=== PATIENT | female | born 1965 | race Caucasian/White ===

== ENCOUNTER 2018-11-26 20:48 | Inpatient (IN) | payer MEDICARE, MEDICAID, SELFPAY ==
[2018-11-26 20:50] VITALS: BP 118/73; PULSE 88; RESP 16; TEMP 37.2; O2SAT 98; BMI 34.9
--- NOTE | 2018-11-26 20:57 | ED.RN ---
NO OLD EKGS IN MUSE
--- NOTE | 2018-11-26 21:32 | EKG12_ITS ---
Test Reason : Blood Pressure : / mmHG Vent. Rate : 150 BPM Atrial Rate : 156 BPM P-R Int : 000 ms QRS Dur : 076 ms QT Int : 284 ms P-R-T Axes : 000 018 001 degrees QTc Int : 448 ms Atrial fibrillation with rapid ventricular response Nonspecific T wave abnormality Abnormal ECG Confirmed by DANNY MOSHER ([id number]), rewrite editor REKHA WALDEN ([id number]) on 11/29/2018 11:02:19 AM Referred By: Confirmed By:DANNY MOSHER
--- NOTE | 2018-11-26 21:36 | ED.DCSUM_ITS ---
- ER Visit Summary Date of Service: 11/26/18 Chief Complaint: Palpitations History of Present Illness: The patient is a 53 F presenting with palpitations. Patient states this started yesterday. Initially was intermittent but has been more persistent today. She complains of a chest fluttering as well as shortness of breath and nausea. She states when she stands she feels lightheaded like she is going to pass out. She has not had these symptoms in the past. She denies chest pain. Denies other complaints. Physical Examination: Vitals are stable. Patient is afebrile. Heart rate 150. alert no acute distress. HEENT exam is unremarkable. Neck is supple. Lungs are clear and equal bilaterally. Heart is irregularly irregular Abdomen is soft nontender nondistended. Extremities are unremarkable. Skin is warm and dry. No focal neurologic deficit. Remainder of exam is unremarkable. Emergency Department Course and Treatment: EKG is A. fib with RVR rate of 150. Patient was given aspirin, Cardizem IV. Chest x-ray shows elevated right hemidiaphragm with minimal right basilar atelectasis. CBC, chemistries unremarkable. Troponin is negative. TSH 4.83. Repeat heart rate ranges from 115-130. She was started on Cardizem drip. Discussed with Dr. Anderson for admission. Disposition: Admission Impression: A. fib with RVR This note was generated with [employer] dictation software. It may contain incorrect words, spelling, and punctuation that were not noted in review of the chart prior to signing ED Disposition - Plan for ED Patient: Referrals: Fátima Rodriguez MD [Primary Care Provider] -
--- NOTE | 2018-11-26 21:37 | RAD_ITS ---
STUDY: X-RAY CHEST REASON FOR EXAM: Female, 53 years old. Palpitations. TECHNIQUE: Single AP portable view of the chest. COMPARISON: None. FINDINGS: Telemetry wires overlie the chest. There is slight elevation of the right hemidiaphragm with right basilar atelectasis. The lungs are otherwise clear. There is no demonstrated pleural abnormality. Normal size heart. Normal mediastinum and gabby. Normal visualized pulmonary arteries. Normal visualized aortic arch and descending thoracic aorta. There are diffuse degenerative changes of the visualized thoracic spine. Normal visualized ribs, clavicles, and shoulders. There is no demonstrated abnormality of the visualized soft tissue structures of the upper abdomen. RAD/Chest 1 View (Portable) IMPRESSION: Elevated right hemidiaphragm with minimal right basilar atelectasis. Electronically Signed: Luis Keller DO at 22:04 EDT Tel [phone], Service support ,
[2018-11-26] MEDS: dilTIAZem 25 MG/5 ML Vial 20 MG IV BOLUS (21:40)
[2018-11-26] MEDS: Aspirin 325 MG Tablet PO (21:40)
[2018-11-26 21:44] VITALS: PULSE 87
[2018-11-26 22:06] VITALS: BP 109/84; PULSE 104; O2SAT 98
[2018-11-26 22:25] LABS: Anion Gap 2 (5-15); BUN 13 mg/dL (7-18); BUN/Creat Ratio 13.6 RATIO (10-20); Calcium,Total 8.6 mg/dL (8.5-10.1); Chloride 109 mmol/L (98-107); Creatinine, Serum 0.96 mg/dL (0.55-1.02); EST Glomerular Filtration Rate 65 mL/min (>60); Est Glom Filt Rate - Afr Amer 79 mL/min (>60); Estimated Creatinine Clearance 67.42 ml/min; Glucose 90 mg/dL (74-106); Sodium Level 140 mmol/L (136-145); Thyroid Stim Hormone (TSH) 4.83 uIU/mL (0.358-3.74)
[2018-11-26 22:31] LABS: Absolute Lymphocyte Count 2.81 X10^3/ul (0.83-4.51); Absolute Neutrophil Count 5.2 X10^3/uL (2.0-7.7); Basophil# 0.02 X10^3/uL; Basophil% 0.2 % (0-1); Eosinophil# 0.13 X10^3/uL; Eosinophils% 1.4 % (0-5); Hemoglobin 14.1 g/dl (12.0-15.0); Lymphocyte # 2.81 X10^3/ul (4.0); Lymphocyte % 31.3 % (19-41); Mean Corp Hgb Conc 33.6 g/gl (32-36); Mean Corpuscular Volume 89.4 fL (81-99); Mean Platelet Vol. 11.2 fl (6.2-12.0); Monocyte# 0.84 X10^3/uL; Monocyte% 9.4 % (0-10); Neutrophil # 5.15 X10^3/uL (2.7-7.7); Neutrophil % 57.5 % (47-70); Platelet Count 359 K/mm3 (150-450); RBC Distribution Width CV 13.8 % (11.6-14.6); RBC Distribution Width SD 44.3 fl (35.1-43.9)
[2018-11-26 22:32] LABS: POSITIVE COUNT NO; POSITIVE DIFFERENTIAL NO; POSITIVE MORPHOLOGY NO
[2018-11-26 23:09] VITALS: BP 105/83; PULSE 138; RESP 16; TEMP 36.4; O2SAT 100
--- NOTE | 2018-11-26 23:17 | HP.PCM_ITS ---
Problem List (1) Atrial fibrillation with RVR Status: Acute (2) HTN (hypertension) Status: Chronic (3) AVM (arteriovenous malformation) Status: Chronic (4) Anxiety and depression Status: Chronic (5) Chronic back pain Status: Chronic Qualifiers: Back pain location: back pain in unspecified location Back pain laterality: unspecified Qualified Code(s): M54.9 - Dorsalgia, unspecified; G89.29 - Other chronic pain (6) Fibromyalgia Status: Chronic (7) Obesity (BMI 30.0-34.9) Status: Chronic (8) Osteoarthritis Status: Chronic Qualifiers: Osteoarthritis location: unspecified site Osteoarthritis type: unspecified Qualified Code(s): M19.90 - Unspecified osteoarthritis, unspecified site History of Present Illness Date of Admission: 11/26/18 Chief Complaint: Palpitations The patient is a 53 y/o F w/ PMHx: R sided AVM, Obesity, HTN, GERD, Chronic Back Pain, Fibromyalgia, Anxiety and Depression who presents to the [facility] ED on 11/26/18 with history of ongoing 2-3 days of intermittent palpitations, heart racing sensation, described as fluttering with associated lightheadedness, dizziness with near syncopal sensation occasionally, worse with position changes, especially standing up. She denies any associated chest discomfort, pressure or pain with these concurrent symptoms. She does state that she has had flushed and occasionally cold sensations over the last month. Work-up in the ED included T 98.9, heart rate up to 138 in the ED, BP 118/73, respiratory rate 16, 98% on room air, CBC with WBC 9, hemoglobin 14.1, platelet 359 without shift, BMP not marked appearing, troponin less than 0.01, EKG with atrial fibrillation with RVR, TSH 4.83, chest x-ray with elevated right hemidiaphragm with minimal right basilar atelectasis. In the ED patient ministered aspirin 325 mg p.o. x1 in addition to Cardizem 20 mg IV x1 bolus. Patient transition to Cardizem drip in the ED. Past Medical History Past Medical History (Chronic Problems): Chronic Problems HTN (hypertension) (Chronic) AVM (arteriovenous malformation) (Chronic) Anxiety and depression (Chronic) Chronic back pain (Chronic) Fibromyalgia (Chronic) Obesity (BMI 30.0-34.9) (Chronic) Osteoarthritis (Chronic) Allergies meperidine [From Demerol] Allergy (Verified 11/26/18 20:55) Vomiting Penicillins [PCN] Allergy (Verified 11/26/18 20:55) Unknown adhesive tape Adverse Reaction (Verified 11/26/18 22:45) Hives ciprofloxacin [From Cipro] Adverse Reaction (Verified 11/26/18 22:45) Hives floxacillin Adverse Reaction (Verified 11/26/18 22:45) Vomiting Sulfa (Sulfonamide Antibiotics) Adverse Reaction (Verified 11/26/18 22:45) Rash Home Medications: Ambulatory Orders Medication Instructions Recorded Atenolol [Tenormin (Beta Sulema)] 50 mg PO DAILY 11/26/18 Cholecalciferol (Vitamin D3) 2,000 unit PO DAILY 11/26/18 [Vitamin D3] Cyanocobalamin (Vitamin B-12) 2,000 mcg PO DAILY 11/26/18 [Vitamin B-12] Diclofenac Sodium [Voltaren] 100 gm TP BID 11/26/18 Docusate Sodium [Dulcolax Stool 100 mg PO BID 11/26/18 Softener] Duloxetine Hcl [Cymbalta] 120 mg PO DAILY 11/26/18 Magnesium Oxide 400 mg PO DAILY 11/26/18 Omeprazole [Prilosec] 20 mg PO DAILY 11/26/18 Polyethylene Glycol 3350 [Miralax] 119 gm PO TID 11/26/18 Pregabalin [Lyrica] 150 mg PO 4X/DAY 11/26/18 Trospium Chloride [Sanctura] 20 mg PO BID 11/26/18 traZODone [Desyrel] 100 mg PO QHS PRN 11/26/18 Surgical History: - - History of significant right-sided AVMs with resection on the right back, right upper extremity, right axilla, right lower extremity, right chest, bilateral tubal ligation, uterine ablation, tonsillectomy, ex lap from what patient describes lysis of adhesion needs. Psychiatric History: Anxiety, Depression DIET TECH History: No pertinent DIET TECH history Lives: Spouse/ Significant Other Smoking Status: Never smoker Tobacco Use: Non-smoker Alcohol: None Drugs: None - *Family History Maternal History Items: - - Patient notes a maternal family history of heart disease, [place], secondary to cardiac [place] complications at age 60. Paternal History Items: - - Father with a history also of AVMs. Review of Systems Constitutional: Reports: Malaise, Weakness, Fatigue. Denies: Chills, Fever, Weight Change HEENT: Denies: Head Aches, Sinus Congestion, Sinus Drainage Cardiovascular: Reports: Light Headedness, Palpitations, Syncope - Near syncopal sensation.. Denies: Chest Pain Respiratory: Denies: Cough, Shortness of breath at rest, Sputum production Gastrointestinal: Denies: Abdominal Pain, Nausea, Vomiting Genitourinary: Denies: Dysuria Musculoskeletal: Reports: Back Pain, Hand Pain, Joint Pain, Joint stiffness, Leg Pain. Denies: Joint Tenderness Skin: Denies: Rash, Wounds Neurological: Denies: Numbness, Tingling, Focal weakness Psychiatric: Reports: Anxiety, Depression. Denies: Homicidal Ideations, Suicidal Ideations Hematologic/ Lymphatic: Denies: Easy Bruising, Easy Bleeding VTE Information - Inpt Only VTE Present on Admission: No VTE Mechan Device Prophylaxis: SCD's VTE Pharm Prophylaxis ordered?: Yes Patient Problems: Active and Suspected Problems Atrial fibrillation with RVR (Acute) Subjective: Seated upright in ED bed, fatigued appearance, notes feeling mildly improved since initial presentation but rate still increased again further following Cardizem bolus with drip pending. Objective: Physical Examination: General: awake, alert, oriented x 3 and cooperative, seated upright in the ED bed in no apparent distress, fatigued, mild improved in symptoms. Skin: normal color, turgor, no icterus, cyanosis. HEENT: AT/NC, EOMI, PERRLA, mildly dry MM, no carotid bruits or JVD noted. Lungs: CTA bilaterally, moderate effort, moderate decrease BL bases, no rales, ronchi or wheezing. Heart: Irregular irregular; no gallop, rub audible. Abdomen: soft, obese, NTTP, ND, normal BS, no HSM. Extremities: no cyanosis, clubbing, or edema, brace to R knee and R wrist. Neurological: patient awake, alert, oriented x 3; cognitive function intact; pupils equally reactive to light and accomodation; cranial nerves II-XII grossly normal, moving all 4 extremities, no focal deficits, strength moderately to severely globally decreased secondary to acute presentation. Psychiatric: affect appears fatigued, no acute evidence of depressive or anxiety feelings. - Physical Exam Vital Signs Temp Pulse Resp BP Pulse Ox 98.9 F 104 H 16 109/84 H 98 11/26/18 20:50 11/26/18 22:06 11/26/18 20:50 11/26/18 22:06 11/26/18 22:06 Oxygen Delivery Method Room Air Weight: 223 lb Body Mass Index (BMI) 34.9 Laboratory Tests Past 24 Hrs 11/26/18 11/26/18 21:07 21:07 WBC 9.0 RBC 4.70 Hgb 14.1 Hct 42.0 MCV 89.4 MCH 30.0 MCHC 33.6 RDW 13.8 RDW Differential 44.3 H Plt Count 359 MPV 11.2 Immature Gran % (Auto) 0.200 Neut % (Auto) 57.5 Lymph % (Auto) 31.3 [place] % (Auto) 9.4 Eos % (Auto) 1.4 Baso % (Auto) 0.2 Absolute Neuts (auto) 5.2 Absolute Lymphs (auto) 2.81 Total Counted Not Reportable Sodium 140 Potassium 4.0 Chloride 109 H Carbon Dioxide 29.0 Anion Gap 2 L BUN 13 Creatinine 0.96 Estim Creat Clear Calc 67.42 Est GFR (MDRD) Af Amer 79 Est GFR (MDRD) Non-Af 65 BUN/Creatinine Ratio 13.6 Glucose 90 Calcium 8.6 Troponin I < 0.015 TSH 4.83 H Assessment/Plan All Active Problems Atrial fibrillation with RVR (Acute) The patient is a 53 y/o F w/ PMHx: R sided AVM, Obesity, HTN, GERD, Chronic Back Pain, Fibromyalgia, Anxiety and Depression who presents to the [facility] ED on 11/26/18 with history of ongoing 2-3 days of intermittent palpitations, heart racing sensation, described as fluttering with associated lightheadedness, dizziness with near syncopal sensation occasionally, worse with position changes, especially standing up. (1) New onset, Paroxsymal atrial fibrillation: EKG in ED w/ atrial fibrillation w/ RVR. Patient administered cardizem IV bolus in ED. Will admit to PCU, maintain on telemetry, obtain cardiac enzyme serial set, obtain magnesium level, obtain ECHO, obtain free T4 level given mild elevation TSH in the ED. we will administer therapeutic Lovenox pending cardiology evaluation. Will continue on cardizem drip with plan for oral transition after 24 hours if appropriate. Cardiology consulted, pending. UDS requested. (2) Elevated TSH: No noted history, TSH elevated 4.83, FT4 pending. (3) Hypertension: We will hold oral regimen, normally atenolol with likely alterations as usage of Cardizem drip with transition once appropriate. (4) Chronic back pain, Fibromyalgia, OA: Will maintain on home cymbalta and Lyrica regimen. (5) Obesity: Weight loss and lifestyle changes encouraged. (6) Anxiety and depression: Continue home Cymbalta regimen. (7) GERD: Continue home Prilosec. (8) AVM, R Sided: Notable R sided AVM history, several surgical interventions. (9) DVT prophylaxis: SCDs, therapeutic Lovenox. Code Visit Inpatient E&M: 08586 Init Hosp L3
[2018-11-26 23:59] VITALS: BP 117/91; PULSE 155; RESP 16; TEMP 36.9; O2SAT 98
[2018-11-27] VITALS (27 sets, daily range): BP systolic 86–113; BP diastolic 49–79; PULSE 84–129; RESP 12–21; TEMP 36.5–37.3; O2SAT 94–99; BMI 34.9
[2018-11-27 00:12] LABS: Amphetamine Urine VISTA NEGATIVE (<1000 ng/mL); Barbiturate Urine VISTA NEGATIVE (< 200 ng/mL); Benzodiazepine Urine VISTA NEGATIVE (< 200 ng/mL); Cocaine Urine VISTA NEGATIVE (< 300 ng/mL); Ecstacy Urine VISTA NEGATIVE (< 500 ng/mL); Methadone Urine VISTA NEGATIVE (< 300 ng/mL); PCP Urine VISTA NEGATIVE (< 25 ng/mL); THC Urine VISTA NEGATIVE (< 50 ng/mL); Vista UDS pH Range 7
--- NOTE | 2018-11-27 00:39 | ECHOD_ITS ---
Reason For Study: Afib/Flutter Procedure This was a 2D Doppler, Color Flow transthoracic echocardiogram. Technically difficult study due to arrhythmia. Exam performed in department. Left Ventricle Mild concentric left ventricular hypertrophy. The estimated ejection fraction is 65 %. Unable to assess diastolic dysfunction due to arrhythmia. No regional wall motion abnormalities noted. Right Ventricle Normal size and thickness. Normal systolic function. Atria Normal left atrium. Normal right atrium. Normal atrial septum. Mitral Valve The mitral valve is structurally normal. No prolapse or stenosis seen. Trivial mitral valve insufficiency. Tricuspid Valve Normal tricuspid valve. Trivial tricuspid valve insufficiency. Right ventricular systolic pressure estimated to be 29 mmHg. Aortic Valve Normal aortic valve. Trisinus/trileaflet aortic valve. Pulmonic Valve Normal pulmonic valve. Great Vessels Normal aortic root. Normal arch. Normal inferior vena cava. Inferior vena cava collapse with sniff. Pericardium/Pleural No pericardial effusion. MMode/2D Measurements & Calculations LVIDd: 3.8 cm IVSd: 1.5 cm LA dimension: 3.9 cm LVIDs: 2.4 cm LVPWd: 0.86 cm RVDd: 3.1 cm FS: 35.8 % LAV(MOD-bp): 34.1 ml LA A4 area: 12.4 cm2 RA A4 area: 9.7 cm2 LAV(MOD-bp) Indexed: 16.1 ml/m2 LAV(MOD-sp2): 38.5 ml LAV(MOD-sp4): 27.9 ml Doppler Measurements & Calculations MV E max linda: 88.5 cm/sec Ao V2 max: 93.3 cm/sec LV V1 max: 83.6 cm/sec Ao max P.5 mmHg LV V1 max P.8 mmHg Ao V2 mean: 62.5 cm/sec LV V1 mean P.2 mmHg Ao mean P.8 mmHg LV V1 mean: 49.6 cm/sec Ao V2 VTI: 15.8 cm LV V1 VTI: 15.3 cm PA V2 max: 53.3 cm/sec TR max linda: 186.2 cm/sec TR max P.9 mmHg Interpretation Summary Mild concentric left ventricular hypertrophy. The estimated ejection fraction is 65 %. Unable to assess diastolic dysfunction due to arrhythmia. Trivial mitral valve insufficiency. Trivial tricuspid valve insufficiency. Right ventricular systolic pressure estimated to be 29 mmHg. Pt appears to be in atrial fibrillation. There is no comparison study available. Ordering Physician: Shanna Anderson Performed By: Luis Manuel Lockett RCS
[2018-11-27 01:37] LABS: Magnesium 1.9 mg/dL (1.6-2.6)
[2018-11-27] MEDS: Enoxaparin 100 MG/ML Syringe SC ×3 (01:55→21:09)
[2018-11-27] MEDS: Acetaminophen 325 MG Tablet 650 MG PO (02:12)
[2018-11-27 03:50] LABS: Absolute Neutrophil Count 4.3 X10^3/uL (2.0-7.7); Basophil# 0.02 X10^3/uL; Basophil% 0.3 % (0-1); Eosinophil# 0.11 X10^3/uL; Eosinophils% 1.4 % (0-5); Hematocrit 37.8 % (37-47); Hemoglobin 12.6 g/dl (12.0-15.0); Lymphocyte % 34.1 % (19-41); Mean Corp Hgb Conc 33.3 g/gl (32-36); Mean Corpuscular Hgb 29.8 pg (27.0-32.0); Mean Corpuscular Volume 89.4 fL (81-99); Mean Platelet Vol. 10.7 fl (6.2-12.0); Monocyte# 0.73 X10^3/uL; Monocyte% 9.2 % (0-10); Neutrophil # 4.34 X10^3/uL (2.7-7.7); Neutrophil % 54.9 % (47-70); Platelet Count 300 K/mm3 (150-450); RBC Distribution Width CV 13.6 % (11.6-14.6); RBC Distribution Width SD 44.3 fl (35.1-43.9); Red Blood Count 4.23 M/mm3 (4.2-5.4); White Blood Count 7.9 K/mm3 (4.4-11.0)
[2018-11-27 03:52] LABS: Anion Gap 8 (5-15); BUN 14 mg/dL (7-18); BUN/Creat Ratio 17.4 RATIO (10-20); Calcium,Total 8.4 mg/dL (8.5-10.1); Chloride 110 mmol/L (98-107); Cholesterol 147 mg/dL (200); Creatinine, Serum 0.81 mg/dL (0.55-1.02); EST Glomerular Filtration Rate 80 mL/min (>60); Est Glom Filt Rate - Afr Amer 96 mL/min (>60); Glucose 106 mg/dL (74-106); High Density Lipoprotein 41 mg/dL; POSITIVE COUNT NO; POSITIVE DIFFERENTIAL NO; POSITIVE MORPHOLOGY NO; Potassium 3.7 mmol/L (3.5-5.1); Sodium Level 143 mmol/L (136-145); Triglycerides 150 mg/dL; Very Low Density Lipoprotein 30 mg/dL (5-40)
[2018-11-27] MEDS: Meloxicam 15 MG Tablet PO ×2 (06:47→21:08)
--- NOTE | 2018-11-27 07:07 | STE_ITS ---
Reason For Study: ATRIAL FIB/FLUTTER Stress Results Protocol: Chencho Protocol Maximum Predicted HR: 169 bpm Target HR: 144 bpm % Maximum Predicted HR: 88 % DurationHeart Rate Stage (mm:ss) (bpm) BP Comment BASELINE 95 100/62 STAGE 1 3:00 130 112/70 STAGE 2 3:00 148 120/72SOB AND LEG HEAVINESS RECOVERY 111 98/60 Stress Duration: 6:00 mm:ss Maximum Stress HR: 148 bpm Baseline Echocardiogram Findings The estimated ejection fraction is 65 %. Stress Echo Wall motion Data Resting WM Intermediate WM Stress WM Resting Wall Motion Wall Motion Stress No regional wall motion No regional wall motion abnormalities noted. abnormalities noted. EKG Data Atrial fibrillation with controlled ventricular response. The patient exercised according to the regular Chencho protocol for a total duration of 6:00. The maximum heart rate attained was 164 beats per minute. This was 97% of maximum predicted heart rate. The patient exercised into stage 3 of the Chencho protocol. During stress, there were no ST or T wave changes noted to suggest ischemia. No clinical angina was noted. Interpretation Summary The estimated ejection fraction is 65 %. Normal, adequate, treadmill echocardiogram. Negative for ischemia by EKG and echocardiographic criteria. No anginal symptoms noted. No arrhythmias noted other than baseline atrial fibrillation. Test terminated due to dyspnea. Final LVEF is 75%. No complications. Ordering Physician: Mil Newton Referring Physician: Mil Newton MD Performed By: Joann Russell, JUNIOR, RVT
[2018-11-27] MEDS: Atenolol 50 MG Tablet 100 MG PO (07:41)
[2018-11-27] MEDS: Aspirin 81 MG TAB.CHEW PO (07:41)
--- NOTE | 2018-11-27 08:00 | EKG12_ITS ---
Test Reason : RHYTHM Blood Pressure : / mmHG Vent. Rate : 083 BPM Atrial Rate : 083 BPM P-R Int : 188 ms QRS Dur : 078 ms QT Int : 366 ms P-R-T Axes : 057 011 012 degrees QTc Int : 430 ms Normal sinus rhythm Nonspecific T wave abnormality Abnormal ECG When compared with ECG of 26-NOV-2018 21:09, MANUAL COMPARISON REQUIRED, DATA IS UNCONFIRMED Confirmed by SASHA LAST ([id number]), deputy editor in chief REKHA WALDEN ([id number]) on 12/02/2018 2:25:05 PM Referred By: SARAH Confirmed By:ANIRUDH LAST
[2018-11-27 08:27] LABS: Prothrombin Time (Protime)PT. 13.4 SECONDS (11.7-14.9)
[2018-11-27 08:28] LABS: Partial Thromboplast Time 42.3 Seconds (24.1-36.2)
--- NOTE | 2018-11-27 09:54 | PCM.PN.HOSP ---
Patient Problems: Active and Suspected Problems Atrial fibrillation with RVR (Acute) Subjective: Patient seen and examined. She was admitted with complaint of palpitations and lightheadedness and was found to be in new onset A. fib with RVR. She is currently on Cardizem drip and cardiology consulted. She is due to have a stress test and echo today. Patient seen and examined. She denies any lightheadedness but still has occasional palpitations. She denies any dizziness, chest pain, diarrhea vomiting. Review of systems otherwise negative. Labs and vitals reviewed. Vitals/I&O's: Vital Signs Temp Pulse Resp BP Pulse Ox 98.6 F 115 H 21 H 90/74 97 11/27/18 08:00 11/27/18 08:00 11/27/18 08:00 11/27/18 08:00 11/27/18 08:00 Oxygen Delivery Method Room Air Weight: 223 lb 1.725 oz Body Mass Index (BMI) 34.9 Intake and Output for Last 24 Hours 11/25/18 11/26/18 11/27/18 23:59 23:59 23:59 Intake Total 603 / 603 Output Total 200 / 200 Balance 403 / 403 General: Alert, Oriented x3, Cooperative, No apparent distress HEENT: Atraumatic, PERRLA, EOMI, Normocephalic Oral: Moist Mucosa Neck: Supple, No JVD, Negative Carotid Bruits Lungs: Clear to auscultation, Normal air movement, No rhonchi, No wheeze Cardiovascular: Normal S1, Normal S2, Tachycardic, - - irregular rate and rhythm Abdomen: Bowel Sounds Present, Soft, Non Tender Extremities: No clubbing, No cyanosis, No edema, Capillary Refill Less than 3 Seconds Skin: No rashes, No breakdown Musculoskeletal: No Tenderness to Palpation of Joints or Extremities Lymphatic: No Cervical, Supraclavicular, or Inguinal Adenopathy Neurological: Cranial nerves II-XII grossly intact, Neuro grossly intact, Motor Exam 5/5 strength throughout Psych/Mental Status: Normal Affect, Appropriate, Alert and oriented to time, place, person, mood and affect Laboratory Results 11/26/18 21:07: WBC 9.0, RBC 4.70, Hgb 14.1, Hct 42.0, MCV 89.4, MCH 30.0, MCHC 33.6, RDW 13.8, RDW Differential 44.3 H, Plt Count 359, MPV 11.2, Immature Gran % (Auto) 0.200, Neut % (Auto) 57.5, Lymph % (Auto) 31.3, [place] % (Auto) 9.4, Eos % (Auto) 1.4, Baso % (Auto) 0.2, Absolute Neuts (auto) 5.2, Absolute Lymphs (auto) 2.81, Total Counted Not Reportable 11/26/18 21:07: Sodium 140, Potassium 4.0, Chloride 109 H, Carbon Dioxide 29.0, Anion Gap 2 L, BUN 13, Creatinine 0.96, Estim Creat Clear Calc 67.42, Est GFR (MDRD) Af Amer 79, Est GFR (MDRD) Non-Af 65, BUN/Creatinine Ratio 13.6, Glucose 90, Calcium 8.6, Troponin I < 0.015, TSH 4.83 H 11/26/18 23:50: Urine Opiates Screen NEGATIVE, Urine Methadone Screen NEGATIVE, Ur Barbiturates Screen NEGATIVE, Ur Phencyclidine Scrn NEGATIVE, Ur Amphetamines Screen NEGATIVE, U Methamphetamin-MDMA NEGATIVE, U Benzodiazepines Scrn NEGATIVE, Urine Cocaine Screen NEGATIVE, U Cannabinoids Screen NEGATIVE, Ur Drug Screen Comment 11/27/18 01:08: Magnesium 1.9, Troponin I < 0.015, Free T4 0.90 11/27/18 03:18: WBC 7.9, RBC 4.23, Hgb 12.6, Hct 37.8, MCV 89.4, MCH 29.8, MCHC 33.3, RDW 13.6, RDW Differential 44.3 H, Plt Count 300, MPV 10.7, Immature Gran % (Auto) 0.100, Neut % (Auto) 54.9, Lymph % (Auto) 34.1, [place] % (Auto) 9.2, Eos % (Auto) 1.4, Baso % (Auto) 0.3, Absolute Neuts (auto) 4.3, Absolute Lymphs (auto) 2.70, Total Counted Not Reportable 11/27/18 03:18: Sodium 143, Potassium 3.7, Chloride 110 H, Carbon Dioxide 25.0, Anion Gap 8, BUN 14, Creatinine 0.81, Estim Creat Clear Calc 79.90, Est GFR (MDRD) Af Amer 96, Est GFR (MDRD) Non-Af 80, BUN/Creatinine Ratio 17.4, Glucose 106, Calcium 8.4 L, Triglycerides 150, Cholesterol 147, LDL Cholesterol 76, VLDL Cholesterol 30, HDL Cholesterol 41 11/27/18 03:18: Troponin I < 0.015 11/27/18 08:04: PT 13.4, INR 1.0, APTT 42.3 H Diagnostic Data Chest X-Ray 11/26/18 21:37 IMPRESSION: Elevated right hemidiaphragm with minimal right basilar atelectasis. Electronically Signed: Luis Keller DO at 22:04 EDT Tel [phone], Service support , Current Medications Acetaminophen (Tylenol) 650 mg PO Q6H PRN PRN PRN Reason: Non-cardiac pain (mod-severe) Last Admin: 11/27/18 02:12 Dose: 650 mg Hydrocodone Bitart/Acetaminophen ([place] 5mg-325mg) 1 - 2 tablet PO Q6H PRN PRN PRN Reason: MOD-SEVERE PAIN (4-10/10) Al Hydroxide/Mg Hydroxide (Mylanta Ii) 15 - 30 ml PO Q4H PRN PRN PRN Reason: INDIGESTION Albuterol Sulfate (Ventolin Aerosols) 2.5 mg INHALATION Q2H PRN PRN PRN Reason: dyspnea, wheezing Aspirin (Aspirin, Baby) 81 mg PO DAILY@0800 [facility] Last Admin: 11/27/18 07:41 Dose: 81 mg Dextrose (D50w Syringe) 0 gm IV X1 PRN; Protocol PRN Reason: Hypoglycemia Docusate Sodium (Colace) 100 mg PO BID [facility] Duloxetine HCl (Cymbalta) 120 mg PO DAILY [facility] Enoxaparin Sodium (Lovenox) 100 mg 1 mg/kg (100 mg) SC Q12 [facility] Last Admin: 11/27/18 01:55 Dose: 100 mg Glucagon () 1 mg IM .X1 PRN PRN Reason: Hypoglycemia Hydralazine HCl (Apresoline Iv) 10 mg IV Q4H PRN PRN PRN Reason: SBP > 160 Sodium Chloride () 1,000 mls @ 100 mls/hr IV .Q10H [facility] Last Admin: 11/27/18 07:13 Dose: Not Given Magnesium Oxide (Mag-Ox 400) 400 mg PO DAILY [facility] Melatonin (Melatonin) 3 mg PO QHS PRN PRN PRN Reason: INSOMNIA Morphine Sulfate () 1 - 2 mg IV Q4H PRN PRN PRN Reason: PAIN Nitroglycerin (Nitrostat) 0.4 mg SUBLINGUAL Q5M PRN PRN Reason: CARDIAC/CHEST PAIN Ondansetron HCl (Zofran) 4 mg IV Q8H PRN PRN PRN Reason: NAUSEA/VOMITING Pantoprazole Sodium (Protonix) 20 mg PO DAILY [facility] Polyethylene Glycol (Miralax) 8.5 gm PO TIDCM [facility] Last Admin: 11/27/18 07:42 Dose: Not Given Pregabalin (Lyrica) 150 mg PO 4X/DAY [facility] Sodium Chloride () 5 - 15 ml IV UD PRN PRN Reason: SALINE FLUSH Tolterodine Tartrate (Detrol La) 4 mg PO DAILY [facility] Trazodone HCl (Desyrel) 100 mg PO QHS PRN PRN Reason: INSOMNIA Medical Necessity - Tobacco Use Smoking Status: Never smoker Tobacco Use: Non-smoker Assessment/Plan All Active Problems Atrial fibrillation with RVR (Acute) 1. New Onset Afib with RVR on cardizem drip; remains in Afib TSH was mildly elevated but free T4 was WNL, indicating sublinical hypothyroidism cardiology on board for 2D echo and stress test today on therapeutic dose of lovenox; 2. Hypertension: stable. atenolol held as she is currently on cardizem drip 3. Fibromyalgia with chronic back pain: on cymbalta and lyrica 4. Anxiety and depression: on Cymbalta 5. GERD: on Prilosec 6. Right sided AVM: s/p numerous surgical interventions 7. Subclinical hypothyroidism: TSH was 4.83, but free T4 was WNL. WIll monitor. To follow up with PCP on outpatient basis. DVT prophlaxis: on therapeutic dose of lovenox Code Visit Inpatient E&M: 57914 [facility] Hosp L3
--- NOTE | 2018-11-27 09:58 | PN_ITS ---
Patient Problems: Active and Suspected Problems Atrial fibrillation with RVR (Acute) Subjective: Patient seen and examined. She was admitted with complaint of palpitations and lightheadedness and was found to be in new onset A. fib with RVR. She is currently on Cardizem drip and cardiology consulted. She is due to have a stress test and echo today. Patient seen and examined. She denies any lightheadedness but still has occasional palpitations. She denies any dizziness, chest pain, diarrhea vomiting. Review of systems otherwise negative. Labs and vitals reviewed. Vitals/I&O's: Vital Signs Temp Pulse Resp BP Pulse Ox 98.6 F 115 H 21 H 90/74 97 11/27/18 08:00 11/27/18 08:00 11/27/18 08:00 11/27/18 08:00 11/27/18 08:00 Oxygen Delivery Method Room Air Weight: 223 lb 1.725 oz Body Mass Index (BMI) 34.9 Intake and Output for Last 24 Hours 11/25/18 11/26/18 11/27/18 23:59 23:59 23:59 Intake Total 603 / 603 Output Total 200 / 200 Balance 403 / 403 General: Alert, Oriented x3, Cooperative, No apparent distress HEENT: Atraumatic, PERRLA, EOMI, Normocephalic Oral: Moist Mucosa Neck: Supple, No JVD, Negative Carotid Bruits Lungs: Clear to auscultation, Normal air movement, No rhonchi, No wheeze Cardiovascular: Normal S1, Normal S2, Tachycardic, - - irregular rate and rhythm Abdomen: Bowel Sounds Present, Soft, Non Tender Extremities: No clubbing, No cyanosis, No edema, Capillary Refill Less than 3 Seconds Skin: No rashes, No breakdown Musculoskeletal: No Tenderness to Palpation of Joints or Extremities Lymphatic: No Cervical, Supraclavicular, or Inguinal Adenopathy Neurological: Cranial nerves II-XII grossly intact, Neuro grossly intact, Motor Exam 5/5 strength throughout Psych/Mental Status: Normal Affect, Appropriate, Alert and oriented to time, place, person, mood and affect Laboratory Results 11/26/18 21:07: WBC 9.0, RBC 4.70, Hgb 14.1, Hct 42.0, MCV 89.4, MCH 30.0, MCHC 33.6, RDW 13.8, RDW Differential 44.3 H, Plt Count 359, MPV 11.2, Immature Gran % (Auto) 0.200, Neut % (Auto) 57.5, Lymph % (Auto) 31.3, [place] % (Auto) 9.4, Eos % (Auto) 1.4, Baso % (Auto) 0.2, Absolute Neuts (auto) 5.2, Absolute Lymphs (auto) 2.81, Total Counted Not Reportable 11/26/18 21:07: Sodium 140, Potassium 4.0, Chloride 109 H, Carbon Dioxide 29.0, Anion Gap 2 L, BUN 13, Creatinine 0.96, Estim Creat Clear Calc 67.42, Est GFR (MDRD) Af Amer 79, Est GFR (MDRD) Non-Af 65, BUN/Creatinine Ratio 13.6, Glucose 90, Calcium 8.6, Troponin I < 0.015, TSH 4.83 H 11/26/18 23:50: Urine Opiates Screen NEGATIVE, Urine Methadone Screen NEGATIVE, Ur Barbiturates Screen NEGATIVE, Ur Phencyclidine Scrn NEGATIVE, Ur Amphetamines Screen NEGATIVE, U Methamphetamin-MDMA NEGATIVE, U Benzodiazepines Scrn NEGATIVE, Urine Cocaine Screen NEGATIVE, U Cannabinoids Screen NEGATIVE, Ur Drug Screen Comment 11/27/18 01:08: Magnesium 1.9, Troponin I < 0.015, Free T4 0.90 11/27/18 03:18: WBC 7.9, RBC 4.23, Hgb 12.6, Hct 37.8, MCV 89.4, MCH 29.8, MCHC 33.3, RDW 13.6, RDW Differential 44.3 H, Plt Count 300, MPV 10.7, Immature Gran % (Auto) 0.100, Neut % (Auto) 54.9, Lymph % (Auto) 34.1, [place] % (Auto) 9.2, Eos % (Auto) 1.4, Baso % (Auto) 0.3, Absolute Neuts (auto) 4.3, Absolute Lymphs (auto) 2.70, Total Counted Not Reportable 11/27/18 03:18: Sodium 143, Potassium 3.7, Chloride 110 H, Carbon Dioxide 25.0, Anion Gap 8, BUN 14, Creatinine 0.81, Estim Creat Clear Calc 79.90, Est GFR (MDRD) Af Amer 96, Est GFR (MDRD) Non-Af 80, BUN/Creatinine Ratio 17.4, Glucose 106, Calcium 8.4 L, Triglycerides 150, Cholesterol 147, LDL Cholesterol 76, VLDL Cholesterol 30, HDL Cholesterol 41 11/27/18 03:18: Troponin I < 0.015 11/27/18 08:04: PT 13.4, INR 1.0, APTT 42.3 H Diagnostic Data Chest X-Ray 11/26/18 21:37 IMPRESSION: Elevated right hemidiaphragm with minimal right basilar atelectasis. Electronically Signed: Luis Keller DO at 22:04 EDT Tel [phone], Service support , Current Medications Acetaminophen (Tylenol) 650 mg PO Q6H PRN PRN PRN Reason: Non-cardiac pain (mod-severe) Last Admin: 11/27/18 02:12 Dose: 650 mg Hydrocodone Bitart/Acetaminophen ([place] 5mg-325mg) 1 - 2 tablet PO Q6H PRN PRN PRN Reason: MOD-SEVERE PAIN (4-10/10) Al Hydroxide/Mg Hydroxide (Mylanta Ii) 15 - 30 ml PO Q4H PRN PRN PRN Reason: INDIGESTION Albuterol Sulfate (Ventolin Aerosols) 2.5 mg INHALATION Q2H PRN PRN PRN Reason: dyspnea, wheezing Aspirin (Aspirin, Baby) 81 mg PO DAILY@0800 [facility] Last Admin: 11/27/18 07:41 Dose: 81 mg Dextrose (D50w Syringe) 0 gm IV X1 PRN; Protocol PRN Reason: Hypoglycemia Docusate Sodium (Colace) 100 mg PO BID [facility] Duloxetine HCl (Cymbalta) 120 mg PO DAILY [facility] Enoxaparin Sodium (Lovenox) 100 mg 1 mg/kg (100 mg) SC Q12 [facility] Last Admin: 11/27/18 01:55 Dose: 100 mg Glucagon () 1 mg IM .X1 PRN PRN Reason: Hypoglycemia Hydralazine HCl (Apresoline Iv) 10 mg IV Q4H PRN PRN PRN Reason: SBP > 160 Sodium Chloride () 1,000 mls @ 100 mls/hr IV .Q10H [facility] Last Admin: 11/27/18 07:13 Dose: Not Given Magnesium Oxide (Mag-Ox 400) 400 mg PO DAILY [facility] Melatonin (Melatonin) 3 mg PO QHS PRN PRN PRN Reason: INSOMNIA Morphine Sulfate () 1 - 2 mg IV Q4H PRN PRN PRN Reason: PAIN Nitroglycerin (Nitrostat) 0.4 mg SUBLINGUAL Q5M PRN PRN Reason: CARDIAC/CHEST PAIN Ondansetron HCl (Zofran) 4 mg IV Q8H PRN PRN PRN Reason: NAUSEA/VOMITING Pantoprazole Sodium (Protonix) 20 mg PO DAILY [facility] Polyethylene Glycol (Miralax) 8.5 gm PO TIDCM [facility] Last Admin: 11/27/18 07:42 Dose: Not Given Pregabalin (Lyrica) 150 mg PO 4X/DAY [facility] Sodium Chloride () 5 - 15 ml IV UD PRN PRN Reason: SALINE FLUSH Tolterodine Tartrate (Detrol La) 4 mg PO DAILY [facility] Trazodone HCl (Desyrel) 100 mg PO QHS PRN PRN Reason: INSOMNIA Medical Necessity - Tobacco Use Smoking Status: Never smoker Tobacco Use: Non-smoker Assessment/Plan All Active Problems Atrial fibrillation with RVR (Acute) 1. New Onset Afib with RVR * on cardizem drip; remains in Afib * TSH was mildly elevated but free T4 was WNL, indicating sublinical hypoth yroidism * cardiology on board * for 2D echo and stress test today * on therapeutic dose of lovenox; 2. Hypertension: stable. atenolol held as she is currently on cardizem drip 3. Fibromyalgia with chronic back pain: on cymbalta and lyrica 4. Anxiety and depression: on Cymbalta 5. GERD: on Prilosec 6. Right sided AVM: s/p numerous surgical interventions 7. Subclinical hypothyroidism: TSH was 4.83, but free T4 was WNL. WIll monitor. To follow up with PCP on outpatient basis. DVT prophlaxis: on therapeutic dose of lovenox Code Visit Inpatient E&M: 03269 Subs Hosp L3
[2018-11-27] MEDS: Magnesium Oxide 400 MG Tablet PO (10:10)
[2018-11-27] MEDS: DULoxetine Hcl 60 MG Capsule 120 MG PO (10:11)
[2018-11-27] MEDS: Polyethylene Glycol 3350 17 GM PACKET 8.5 GM PO ×2 (10:11→17:22)
[2018-11-27] MEDS: Pregabalin 75 MG Capsule 150 MG PO ×4 (10:11→21:19)
[2018-11-27] MEDS: Tolterodine Tartrate 4 MG CAP.SA PO (10:11)
[2018-11-27] MEDS: Docusate Sodium 100 MG Capsule PO ×2 (10:11→21:08)
[2018-11-27] MEDS: Pantoprazole Sodium 20 MG Tablet PO (10:11)
--- NOTE | 2018-11-27 10:49 | CASEMGMT ---
NITO PENA assessment: Face to Face with patient for initial transition planning/care coordination assessment. NITO PENA introduced self and role at [facility], pt voices understanding and consents to assessment at this time. Pt is lying in bed in no distress at this time. Pt is A/Ox4 at this time and answers all questions appropriately at this time. Care providers, pharmacy, and demographics verified at this time. PCP: Jennifer Specialists: Multiple specialists thru [facility]. Preferred Pharmacy: [facility] Insurance: [facility] Prescription Benefit: Yes Living Will/HPOA: Pt states that she believes that she does have LW/HPOA and that they are on file with [facility]. LNOK: Jhon Shaw, sig other Living Arrangements: Pt states lives with sig other in 2 story home and states has had some trouble recently regarding SOB on the stairs but believes that it was d/t the Afib. Pt states is normally independent with ADL's. Transportation: Pt states that she can drive but normally sig other drives and states no transportation concerns at this time. DME/HHC: Pt states has a brace for her right knee and right elbow d/t tendonitis, etc. Pt states is currently in OP therapy at [facility] for same. Pt states that she may need a cane in the future. Pt states no hx of HHC or SNF in the past. Pt states no concerns with going home at time of discharge. Pt states is disabled. Pt states does not smoke or drink ETOH. Pt states no further concerns/needs at this time. CM to follow for any further discharge planning/needs. Advised pt to ask for CM if any further questions/concerns/needs arise, voices understanding. Pt Goal: Home Plan: [place] NITO PENA
--- NOTE | 2018-11-27 13:21 | PCM.CONS.C ---
<Nic Lemus - Last Filed: 11/27/18 14:34> Problem List (1) Atrial fibrillation with RVR Status: Acute (2) HTN (hypertension) Status: Chronic Reason for Consult Date of Consultation: 11/27/18 Reason for Consultation: Atrial fibrillation with RVR History of Present Illness: The patient is a 53 year old F who presented to the ER on 11/27/2018 with episodes of palpitations. She has a previous medical history of HTN, AVM with multiple surgeries and ablations, anxiety, and chronic back pain. Her ECG showed Atrial fibrillation with RVR with rates of 150 bpm. She states having palpitations previously but yesterday was more constant. She has noticed intermittent palpitations for 2 to 3 months. This is also associated with shortness of breath and leg heaviness when going up steps. She received Cardizem bolus and Amiodarone bolus and was admitted for further work up. Cardiology was consulted for further evaluation and treatment. Past Medical History Allergies/Adverse Reactions: Allergies meperidine [From Demerol] Allergy (Verified 11/26/18 20:55) Vomiting Penicillins [PCN] Allergy (Verified 11/26/18 20:55) Unknown adhesive tape Adverse Reaction (Verified 11/26/18 22:45) Hives ciprofloxacin [From Cipro] Adverse Reaction (Verified 11/26/18 22:45) Hives floxacillin Adverse Reaction (Verified 11/26/18 22:45) Vomiting Sulfa (Sulfonamide Antibiotics) Adverse Reaction (Verified 11/26/18 22:45) Rash Home Medications: Ambulatory Orders Medication Instructions Recorded Atenolol [Tenormin (Beta Sulema)] 50 mg PO DAILY 11/26/18 Cholecalciferol (Vitamin D3) 2,000 unit PO DAILY 11/26/18 [Vitamin D3] Cyanocobalamin (Vitamin B-12) 2,000 mcg PO DAILY 11/26/18 [Vitamin B-12] Diclofenac Sodium [Voltaren] 100 gm TP BID 11/26/18 Docusate Sodium [Dulcolax Stool 100 mg PO BID 11/26/18 Softener] Duloxetine Hcl [Cymbalta] 120 mg PO DAILY 11/26/18 Magnesium Oxide 400 mg PO DAILY 11/26/18 Omeprazole [Prilosec] 40 mg PO DAILY 11/26/18 Polyethylene Glycol 3350 [Miralax] 119 gm PO TID 11/26/18 Pregabalin [Lyrica] 150 mg PO 4X/DAY 11/26/18 Trospium Chloride [Sanctura] 20 mg PO BID 11/26/18 traZODone [Desyrel] 100 mg PO QHS PRN 11/26/18 Meloxicam 15 mg PO DAILY 11/27/18 Past Medical History (Chronic Problems): Chronic Problems HTN (hypertension) (Chronic) AVM (arteriovenous malformation) (Chronic) Anxiety and depression (Chronic) Chronic back pain (Chronic) Fibromyalgia (Chronic) Obesity (BMI 30.0-34.9) (Chronic) Osteoarthritis (Chronic) Surgical History: - - History of significant right-sided AVMs with resection on the right back, right upper extremity, right axilla, right lower extremity, right chest, bilateral tubal ligation, uterine ablation, tonsillectomy, ex lap from what patient describes lysis of adhesion needs. Psychiatric History: Anxiety, Depression FIELD SPEC History: No pertinent FIELD SPEC history - *Family History Maternal Family History: Family History (Last Updated 11/27/18 @ 13:28 by AREN Pina) Mother CAD (coronary artery disease) Grandmother CAD (coronary artery disease) Sister Aneurysm Breast cancer History Items: - - Patient notes a maternal family history of heart disease, VT, secondary to cardiac VT complications at age 60. Paternal Family History: Family History (Last Updated 11/27/18 @ 13:28 by AREN Pina) Mother CAD (coronary artery disease) Grandmother CAD (coronary artery disease) Sister Aneurysm Breast cancer History Items: - - Father with a history also of AVMs. Lives: Spouse/ Significant Other Smoking Status: Never smoker Tobacco Use: Non-smoker Alcohol: None Drugs: None Review of Systems - Review of Systems General: Reports: Fatigue Cardiovascular: Reports: Shortness of Breath with Exertion, Peripheral Edema, Palpitations. Denies: Chest Discomfort, Chest Tightness, Chest Heaviness Respiratory: Denies: Cough Neurological: Reports: Dizziness Objective: Vital Signs Temp Pulse Resp BP Pulse Ox 97.8 F 108 H 16 95/57 L 98 11/27/18 10:10 11/27/18 10:10 11/27/18 10:10 11/27/18 10:10 11/27/18 10:10 Oxygen Delivery Method Room Air Weight: 223 lb 1.725 oz Body Mass Index (BMI) 34.9 Intake and Output for Last 24 Hours 11/25/18 11/26/18 11/27/18 23:59 23:59 23:59 Intake Total 1267 / 1267 Output Total 200 / 200 Balance 1067 / 1067 General: Healthy Appearing, Awake, Alert, Oriented x 3 HEENT: Atraumatic Oral: Moist Mucosa Neck: No JVD Lungs: Clear to auscultation Cardiovascular: Irregular Rhythm, Normal S1, Normal S2, No Murmurs, No Rubs, No Gallops Abdomen: Soft Extremities: No Cyanosis, No Clubbing, No edema, Normal Capillary Refill Neurological: No Focal Motor or Sensory Deficit Psych/Mental Status: Appropriate, Normal Affect 11/26/18 21:07: WBC 9.0, RBC 4.70, Hgb 14.1, Hct 42.0, MCV 89.4, MCH 30.0, MCHC 33.6, RDW 13.8, RDW Differential 44.3 H, Plt Count 359, MPV 11.2, Immature Gran % (Auto) 0.200, Neut % (Auto) 57.5, Lymph % (Auto) 31.3, [place] % (Auto) 9.4, Eos % (Auto) 1.4, Baso % (Auto) 0.2, Absolute Neuts (auto) 5.2, Total Counted Not Reportable 11/26/18 21:07: Sodium 140, Potassium 4.0, Chloride 109 H, Carbon Dioxide 29.0, Anion Gap 2 L, BUN 13, Creatinine 0.96, Est GFR (MDRD) Af Amer 79, Est GFR (MDRD) Non-Af 65, BUN/Creatinine Ratio 13.6, Glucose 90, Calcium 8.6, Troponin I < 0.015 11/27/18 01:08: Magnesium 1.9, Troponin I < 0.015 11/27/18 03:18: WBC 7.9, RBC 4.23, Hgb 12.6, Hct 37.8, MCV 89.4, MCH 29.8, MCHC 33.3, RDW 13.6, RDW Differential 44.3 H, Plt Count 300, MPV 10.7, Immature Gran % (Auto) 0.100, Neut % (Auto) 54.9, Lymph % (Auto) 34.1, [place] % (Auto) 9.2, Eos % (Auto) 1.4, Baso % (Auto) 0.3, Absolute Neuts (auto) 4.3, Total Counted Not Reportable 11/27/18 03:18: Sodium 143, Potassium 3.7, Chloride 110 H, Carbon Dioxide 25.0, Anion Gap 8, BUN 14, Creatinine 0.81, Est GFR (MDRD) Af Amer 96, Est GFR (MDRD) Non-Af 80, BUN/Creatinine Ratio 17.4, Glucose 106, Calcium 8.4 L, Triglycerides 150, Cholesterol 147, LDL Cholesterol 76, VLDL Cholesterol 30, HDL Cholesterol 41 11/27/18 03:18: Troponin I < 0.015 11/27/18 08:04: PT 13.4, INR 1.0, APTT 42.3 H Rhythm: EKG: Atrial fibrillation ECHO: Interpretation Summary Mild concentric left ventricular hypertrophy. The estimated ejection fraction is 65 %. Unable to assess diastolic dysfunction due to arrhythmia. Trivial mitral valve insufficiency. Trivial tricuspid valve insufficiency. Right ventricular systolic pressure estimated to be 29 mmHg. Pt appears to be in atrial fibrillation. There is no comparison study available. Stress Test: Interpretation Summary The estimated ejection fraction is 65 %. Normal, adequate, treadmill echocardiogram. Negative for ischemia by EKG and echocardiographic criteria. No anginal symptoms noted. No arrhythmias noted other than baseline atrial fibrillation. Test terminated due to dyspnea. Final LVEF is 75%. No complications. Cardiac Cath: PCI: CT Surgery: Holter monitor: EPS: PPM: CXR: Chest CT Scan: Assessment/Plan 1. Atrial fibrillation Patient's rate is better controlled with increased Atenolol dosage, but still fluctuates. Her echocardiogram details are noted above. This showed an ejection fraction of 65%, normal atrial size, and normal valve function. Her stress echocardiogram details are noted above. This was negative for ischemia. Her [id number] score is 3 (HTN, vascular disease, female). She will begin Cardizem 125 mg p.o. daily and her atenolol will be adjusted to 50 mg p.o. twice daily. We can consider antiarrhythmic medication such as flecainide if rate is not better controlled. We will also consider outpatient cardioversion in approximately 6 weeks. 2. Hypertension Currently controlled with current medications, which she will continue with adjustments as outlined above. We will monitor closely given medication adjustments. <Mil Newton - Last Filed: 11/27/18 14:57> Problem List (1) Atrial fibrillation with RVR Status: Acute (2) HTN (hypertension) Status: Chronic (3) AVM (arteriovenous malformation) Status: Chronic Reason for Consult History of Present Illness: The patient is a 53 year old F, nondiabetic, with hypertension, no previous CVA, coronary disease, catheterization, or known obstructive sleep apnea. The patient apparently has been a non-smoker her whole life, and was tested previously for obstructive sleep apnea and was negative. The patient was in fairly normal health until about 2 days ago when she began noticing profound palpitations, fatigue, extremity heaviness, and shortness of breath particular when walking upstairs. At the encouragement of her significant other she was brought to the emergency room where she was found to have rapid atrial fibrillation with a heart rate in the 150s. She had been on atenolol XL 50 mill grams p.o. daily, and was started on IV Cardizem drip and apparently received a 550 mg IV bolus of amiodarone. Overnight her heart rate improved but did not get below 100 on the Cardizem drip. She was ruled out for myocardial infarction. This morning her Toprol-XL was increased to 100 mg daily, and her Cardizem drip was weaned off. She underwent treadmill echocardiogram which was overtly negative for ischemia at a below average workload. In addition she underwent a 2D echo with Doppler which showed normal LV function, normal right-sided pressures. Of significant note, the patient has a history of significant AV malformations on her chest status post removal with significant blood loss, as well as on her back. She has never been told she had GI AV malformations. She has had no lower GI bleeding, black tarry stools, or bright red blood per rectum. She has never had a CVA or TIA. She has never been told she has atrial fibrillation. Patient denies any long car rides, recent surgeries, or recent illnesses. She states that her symptoms actually started around 2 years ago, and has been struggling with this for some time. Her symptoms were similar character but of less intensity occurring several times per month. She denies any hot flashes, menopausal activity, fevers, chills, or syncope. Patient did feel lightheaded last night when she had rapid atrial fibrillation. Past Medical History - *Family History Maternal Family History: Family History (Last Updated 11/27/18 @ 13:28 by AREN Pina) Mother CAD (coronary artery disease) Grandmother CAD (coronary artery disease) Sister Aneurysm Breast cancer Paternal Family History: Family History (Last Updated 11/27/18 @ 13:28 by AREN Pina) Mother CAD (coronary artery disease) Grandmother CAD (coronary artery disease) Sister Aneurysm Breast cancer Review of Systems - Review of Systems General: Denies: Fever, Night Sweats, Fatigue Cardiovascular: Reports: Peripheral Edema, Palpitations. Denies: Chest Discomfort, Shortness of Breath, Orthopnea, PND, Lightheadedness, Dizziness, Near Syncope, Syncope Respiratory: Denies: Cough, Sputum Production, Hemoptysis Gastrointestinal: Denies: Hematemesis, Hematochezia, Melena Genitourinary: Denies: Dysuria, Hematuria Skin: Denies: Rash Objective: Vital Signs Temp Pulse Resp BP Pulse Ox 97.8 F 108 H 16 95/57 L 98 11/27/18 10:10 11/27/18 10:10 11/27/18 10:10 11/27/18 10:10 11/27/18 10:10 Oxygen Delivery Method Room Air Weight: 223 lb 1.725 oz Body Mass Index (BMI) 34.9 Intake and Output for Last 24 Hours 11/25/18 11/26/18 11/27/18 23:59 23:59 23:59 Intake Total 1267 / 1267 Output Total 200 / 200 Balance 1067 / 1067 11/26/18 21:07: WBC 9.0, RBC 4.70, Hgb 14.1, Hct 42.0, MCV 89.4, MCH 30.0, MCHC 33.6, RDW 13.8, RDW Differential 44.3 H, Plt Count 359, MPV 11.2, Immature Gran % (Auto) 0.200, Neut % (Auto) 57.5, Lymph % (Auto) 31.3, [place] % (Auto) 9.4, Eos % (Auto) 1.4, Baso % (Auto) 0.2, Absolute Neuts (auto) 5.2, Total Counted Not Reportable 11/26/18 21:07: Sodium 140, Potassium 4.0, Chloride 109 H, Carbon Dioxide 29.0, Anion Gap 2 L, BUN 13, Creatinine 0.96, Est GFR (MDRD) Af Amer 79, Est GFR (MDRD) Non-Af 65, BUN/Creatinine Ratio 13.6, Glucose 90, Calcium 8.6, Troponin I < 0.015 11/27/18 01:08: Magnesium 1.9, Troponin I < 0.015 11/27/18 03:18: WBC 7.9, RBC 4.23, Hgb 12.6, Hct 37.8, MCV 89.4, MCH 29.8, MCHC 33.3, RDW 13.6, RDW Differential 44.3 H, Plt Count 300, MPV 10.7, Immature Gran % (Auto) 0.100, Neut % (Auto) 54.9, Lymph % (Auto) 34.1, [place] % (Auto) 9.2, Eos % (Auto) 1.4, Baso % (Auto) 0.3, Absolute Neuts (auto) 4.3, Total Counted Not Reportable 11/27/18 03:18: Sodium 143, Potassium 3.7, Chloride 110 H, Carbon Dioxide 25.0, Anion Gap 8, BUN 14, Creatinine 0.81, Est GFR (MDRD) Af Amer 96, Est GFR (MDRD) Non-Af 80, BUN/Creatinine Ratio 17.4, Glucose 106, Calcium 8.4 L, Triglycerides 150, Cholesterol 147, LDL Cholesterol 76, VLDL Cholesterol 30, HDL Cholesterol 41 11/27/18 03:18: Troponin I < 0.015 11/27/18 08:04: PT 13.4, INR 1.0, APTT 42.3 H Rhythm: EKG: ECHO: Stress Test: Cardiac Cath: PCI: CT Surgery: Holter monitor: EPS: PPM: CXR: Chest CT Scan: Assessment/Plan Patient has been seen and examined by myself and Nic lemus, and I agree with the above with the following addendum: 1. Atrial fibrillation: Patient appears to have rapid atrial fibrillation on and off for some time, making it very difficult to pursue DC cardioversion without the benefit of anticoagulation. Her atrial fibrillation may be problematic given her history of AV malformations in the past. This may make bleeding episodes a more common or likely occurrence. Her echocardiogram and stress test are negative for inducible ischemia and I would not recommend catheterization at this time. Given her chads 2?vascular score, she will require anticoagulation and possible antiarrhythmic therapy as well. We are having a difficult time controlling her heart rate despite her normal hemoglobin. Her TSH is slightly elevated however her T4 is within normal limits. It is doubtful the patient has significant hyper thyroidism to explain her rapid atrial fibrillation. Patient denies any long car rides recently so it is doubtful she has pulmonary embolism. It is possible the patient may have a pulmonary AVM which may explain her dyspnea, and rapid heart rate. Her RVSP however appear to be with 29 mmHg, and she appeared to have normal RV size and function. I recommend the patient change her atenolol to Toprol-XL 50 mill grams p.o. twice daily for better control and add Cardizem CD 120 mg p.o. daily and titrate up from there. Given her AV malformations I would not recommend nonreversible agent such as Xarelto or Eliquis at this time, and would recommend loading with Coumadin 5 mg today, 5 mg tomorrow, and 2.5 mg p.o. daily. Repeat INR on Sunday. Would recommend her INR between 2.0 and 3.0. If the patient is able to tolerate anticoagulation therapy for 4 to 6 weeks time, I have a low threshold for DC cardioversion. If we are unable to control her heart rate, she may require antiarrhythmic therapy such as flecainide or propafenone. I would not recommend amiodarone given her young age. We may want to give consideration to a CTA of her chest and lungs to evaluate for possible AV malformation. 2. Thank you very much for the opportunity to participate in the cardiac care of your patient. Consultation time took place between 130 and 2 PM. Code Visit Inpatient E&M: 58400 Init Hosp L2
--- NOTE | 2018-11-27 13:26 | CON.PCM_ITS ---
<Nic Lemus - Last Filed: 11/27/18 14:34> Problem List (1) Atrial fibrillation with RVR Status: Acute (2) HTN (hypertension) Status: Chronic Reason for Consult Date of Consultation: 11/27/18 Reason for Consultation: Atrial fibrillation with RVR History of Present Illness: The patient is a 53 year old F who presented to the ER on 11/27/2018 with episodes of palpitations. She has a previous medical history of HTN, AVM with multiple surgeries and ablations, anxiety, and chronic back pain. Her ECG showed Atrial fibrillation with RVR with rates of 150 bpm. She states having palpitations previously but yesterday was more constant. She has noticed intermittent palpitations for 2 to 3 months. This is also associated with shortness of breath and leg heaviness when going up steps. She received Cardizem bolus and Amiodarone bolus and was admitted for further work up. Cardiology was consulted for further evaluation and treatment. Past Medical History Allergies/Adverse Reactions: Allergies meperidine [From Demerol] Allergy (Verified 11/26/18 20:55) Vomiting Penicillins [PCN] Allergy (Verified 11/26/18 20:55) Unknown adhesive tape Adverse Reaction (Verified 11/26/18 22:45) Hives ciprofloxacin [From Cipro] Adverse Reaction (Verified 11/26/18 22:45) Hives floxacillin Adverse Reaction (Verified 11/26/18 22:45) Vomiting Sulfa (Sulfonamide Antibiotics) Adverse Reaction (Verified 11/26/18 22:45) Rash Home Medications: Ambulatory Orders Medication Instructions Recorded Atenolol [Tenormin (Beta Sulema)] 50 mg PO DAILY 11/26/18 Cholecalciferol (Vitamin D3) 2,000 unit PO DAILY 11/26/18 [Vitamin D3] Cyanocobalamin (Vitamin B-12) 2,000 mcg PO DAILY 11/26/18 [Vitamin B-12] Diclofenac Sodium [Voltaren] 100 gm TP BID 11/26/18 Docusate Sodium [Dulcolax Stool 100 mg PO BID 11/26/18 Softener] Duloxetine Hcl [Cymbalta] 120 mg PO DAILY 11/26/18 Magnesium Oxide 400 mg PO DAILY 11/26/18 Omeprazole [Prilosec] 40 mg PO DAILY 11/26/18 Polyethylene Glycol 3350 [Miralax] 119 gm PO TID 11/26/18 Pregabalin [Lyrica] 150 mg PO 4X/DAY 11/26/18 Trospium Chloride [Sanctura] 20 mg PO BID 11/26/18 traZODone [Desyrel] 100 mg PO QHS PRN 11/26/18 Meloxicam 15 mg PO DAILY 11/27/18 Past Medical History (Chronic Problems): Chronic Problems HTN (hypertension) (Chronic) AVM (arteriovenous malformation) (Chronic) Anxiety and depression (Chronic) Chronic back pain (Chronic) Fibromyalgia (Chronic) Obesity (BMI 30.0-34.9) (Chronic) Osteoarthritis (Chronic) Surgical History: - - History of significant right-sided AVMs with resection on the right back, right upper extremity, right axilla, right lower extremity, right chest, bilateral tubal ligation, uterine ablation, tonsillectomy, ex lap from what patient describes lysis of adhesion needs. Psychiatric History: Anxiety, Depression FOX F[employer]ER History: No pertinent FOX F[employer]ER history - *Family History Maternal Family History: Family History (Last Updated 11/27/18 @ 13:28 by AREN Pina) Mother CAD (coronary artery disease) Grandmother CAD (coronary artery disease) Sister Aneurysm Breast cancer History Items: - - Patient notes a maternal family history of heart disease, [place], secondary to cardiac [place] complications at age 60. Paternal Family History: Family History (Last Updated 11/27/18 @ 13:28 by AREN Pina) Mother CAD (coronary artery disease) Grandmother CAD (coronary artery disease) Sister Aneurysm Breast cancer History Items: - - Father with a history also of AVMs. Lives: Spouse/ Significant Other Smoking Status: Never smoker Tobacco Use: Non-smoker Alcohol: None Drugs: None Review of Systems - Review of Systems General: Reports: Fatigue Cardiovascular: Reports: Shortness of Breath with Exertion, Peripheral Edema, Palpitations. Denies: Chest Discomfort, Chest Tightness, Chest Heaviness Respiratory: Denies: Cough Neurological: Reports: Dizziness Objective: Vital Signs Temp Pulse Resp BP Pulse Ox 97.8 F 108 H 16 95/57 L 98 11/27/18 10:10 11/27/18 10:10 11/27/18 10:10 11/27/18 10:10 11/27/18 10:10 Oxygen Delivery Method Room Air Weight: 223 lb 1.725 oz Body Mass Index (BMI) 34.9 Intake and Output for Last 24 Hours 11/25/18 11/26/18 11/27/18 23:59 23:59 23:59 Intake Total 1267 / 1267 Output Total 200 / 200 Balance 1067 / 1067 General: Healthy Appearing, Awake, Alert, Oriented x 3 HEENT: Atraumatic Oral: Moist Mucosa Neck: No JVD Lungs: Clear to auscultation Cardiovascular: Irregular Rhythm, Normal S1, Normal S2, No Murmurs, No Rubs, No Gallops Abdomen: Soft Extremities: No Cyanosis, No Clubbing, No edema, Normal Capillary Refill Neurological: No Focal Motor or Sensory Deficit Psych/Mental Status: Appropriate, Normal Affect 11/26/18 21:07: WBC 9.0, RBC 4.70, Hgb 14.1, Hct 42.0, MCV 89.4, MCH 30.0, MCHC 33.6, RDW 13.8, RDW Differential 44.3 H, Plt Count 359, MPV 11.2, Immature Gran % (Auto) 0.200, Neut % (Auto) 57.5, Lymph % (Auto) 31.3, [place] % (Auto) 9.4, Eos % (Auto) 1.4, Baso % (Auto) 0.2, Absolute Neuts (auto) 5.2, Total Counted Not Reportable 11/26/18 21:07: Sodium 140, Potassium 4.0, Chloride 109 H, Carbon Dioxide 29.0, Anion Gap 2 L, BUN 13, Creatinine 0.96, Est GFR (MDRD) Af Amer 79, Est GFR (MDRD) Non-Af 65, BUN/Creatinine Ratio 13.6, Glucose 90, Calcium 8.6, Troponin I < 0.015 11/27/18 01:08: Magnesium 1.9, Troponin I < 0.015 11/27/18 03:18: WBC 7.9, RBC 4.23, Hgb 12.6, Hct 37.8, MCV 89.4, MCH 29.8, MCHC 33.3, RDW 13.6, RDW Differential 44.3 H, Plt Count 300, MPV 10.7, Immature Gran % (Auto) 0.100, Neut % (Auto) 54.9, Lymph % (Auto) 34.1, [place] % (Auto) 9.2, Eos % (Auto) 1.4, Baso % (Auto) 0.3, Absolute Neuts (auto) 4.3, Total Counted Not Reportable 11/27/18 03:18: Sodium 143, Potassium 3.7, Chloride 110 H, Carbon Dioxide 25.0, Anion Gap 8, BUN 14, Creatinine 0.81, Est GFR (MDRD) Af Amer 96, Est GFR (MDRD) Non-Af 80, BUN/Creatinine Ratio 17.4, Glucose 106, Calcium 8.4 L, Triglycerides 150, Cholesterol 147, LDL Cholesterol 76, VLDL Cholesterol 30, HDL Cholesterol 41 11/27/18 03:18: Troponin I < 0.015 11/27/18 08:04: PT 13.4, INR 1.0, APTT 42.3 H Rhythm: EKG: Atrial fibrillation ECHO: Interpretation Summary Mild concentric left ventricular hypertrophy. The estimated ejection fraction is 65 %. Unable to assess diastolic dysfunction due to arrhythmia. Trivial mitral valve insufficiency. Trivial tricuspid valve insufficiency. Right ventricular systolic pressure estimated to be 29 mmHg. Pt appears to be in atrial fibrillation. There is no comparison study available. Stress Test: Interpretation Summary The estimated ejection fraction is 65 %. Normal, adequate, treadmill echocardiogram. Negative for ischemia by EKG and echocardiographic criteria. No anginal symptoms noted. No arrhythmias noted other than baseline atrial fibrillation. Test terminated due to dyspnea. Final LVEF is 75%. No complications. Cardiac Cath: PCI: CT Surgery: Holter monitor: EPS: PPM: CXR: Chest CT Scan: Assessment/Plan 1. Atrial fibrillation * Patient's rate is better controlled with increased Atenolol dosage, but still fluctuates. * Her echocardiogram details are noted above. This showed an ejection fraction of 65%, normal atrial size, and normal valve function. * Her stress echocardiogram details are noted above. This was negative for ischemia. * Her [id number] score is 3 (HTN, vascular disease, female). * She will begin Cardizem 125 mg p.o. daily and her atenolol will be adjusted to 50 mg p.o. twice daily. * We can consider antiarrhythmic medication such as flecainide if rate is not better controlled. * We will also consider outpatient cardioversion in approximately 6 weeks. 2. Hypertension Currently controlled with current medications, which she will continue with adjustments as outlined above. We will monitor closely given medication adjustments. <Mil Newton - Last Filed: 11/27/18 14:57> Problem List (1) Atrial fibrillation with RVR Status: Acute (2) HTN (hypertension) Status: Chronic (3) AVM (arteriovenous malformation) Status: Chronic Reason for Consult History of Present Illness: The patient is a 53 year old F, nondiabetic, with hypertension, no previous CVA, coronary disease, catheterization, or known obstructive sleep apnea. The patient apparently has been a non-smoker her whole life, and was tested previously for obstructive sleep apnea and was negative. The patient was in fairly normal health until about 2 days ago when she began noticing profound palpitations, fatigue, extremity heaviness, and shortness of breath particular when walking upstairs. At the encouragement of her significant other she was brought to the emergency room where she was found to have rapid atrial fibrillation with a heart rate in the 150s. She had been on atenolol XL 50 mill grams p.o. daily, and was started on IV Cardizem drip and apparently received a 550 mg IV bolus of amiodarone. Overnight her heart rate improved but did not get below 100 on the Cardizem drip. She was ruled out for myocardial infarction. This morning her Toprol-XL was increased to 100 mg daily, and her Cardizem drip was weaned off. She underwent treadmill echocardiogram which was overtly negative for ischemia at a below average workload. In addition she underwent a 2D echo with Doppler which showed normal LV function, normal right-sided pressures. Of significant note, the patient has a history of significant AV malformations on her chest status post removal with significant blood loss, as well as on her back. She has never been told she had GI AV malformations. She has had no lower GI bleeding, black tarry stools, or bright red blood per rectum. She has never had a CVA or TIA. She has never been told she has atrial fibrillation. Patient denies any long car rides, recent surgeries, or recent illnesses. She states that her symptoms actually started around 2 years ago, and has been struggling with this for some time. Her symptoms were similar character but of less intensity occurring several times per month. She denies any hot flashes, menopausal activity, fevers, chills, or syncope. Patient did feel lightheaded last night when she had rapid atrial fibrillation. Past Medical History - *Family History Maternal Family History: Family History (Last Updated 11/27/18 @ 13:28 by AREN Pina) Mother CAD (coronary artery disease) Grandmother CAD (coronary artery disease) Sister Aneurysm Breast cancer Paternal Family History: Family History (Last Updated 11/27/18 @ 13:28 by AREN Pina) Mother CAD (coronary artery disease) Grandmother CAD (coronary artery disease) Sister Aneurysm Breast cancer Review of Systems - Review of Systems General: Denies: Fever, Night Sweats, Fatigue Cardiovascular: Reports: Peripheral Edema, Palpitations. Denies: Chest Discomfort, Shortness of Breath, Orthopnea, PND, Lightheadedness, Dizziness, Near Syncope, Syncope Respiratory: Denies: Cough, Sputum Production, Hemoptysis Gastrointestinal: Denies: Hematemesis, Hematochezia, Melena Genitourinary: Denies: Dysuria, Hematuria Skin: Denies: Rash Objective: Vital Signs Temp Pulse Resp BP Pulse Ox 97.8 F 108 H 16 95/57 L 98 11/27/18 10:10 11/27/18 10:10 11/27/18 10:10 11/27/18 10:10 11/27/18 10:10 Oxygen Delivery Method Room Air Weight: 223 lb 1.725 oz Body Mass Index (BMI) 34.9 Intake and Output for Last 24 Hours 11/25/18 11/26/18 11/27/18 23:59 23:59 23:59 Intake Total 1267 / 1267 Output Total 200 / 200 Balance 1067 / 1067 11/26/18 21:07: WBC 9.0, RBC 4.70, Hgb 14.1, Hct 42.0, MCV 89.4, MCH 30.0, MCHC 33.6, RDW 13.8, RDW Differential 44.3 H, Plt Count 359, MPV 11.2, Immature Gran % (Auto) 0.200, Neut % (Auto) 57.5, Lymph % (Auto) 31.3, [place] % (Auto) 9.4, Eos % (Auto) 1.4, Baso % (Auto) 0.2, Absolute Neuts (auto) 5.2, Total Counted Not Reportable 11/26/18 21:07: Sodium 140, Potassium 4.0, Chloride 109 H, Carbon Dioxide 29.0, Anion Gap 2 L, BUN 13, Creatinine 0.96, Est GFR (MDRD) Af Amer 79, Est GFR (MDRD) Non-Af 65, BUN/Creatinine Ratio 13.6, Glucose 90, Calcium 8.6, Troponin I < 0.015 11/27/18 01:08: Magnesium 1.9, Troponin I < 0.015 11/27/18 03:18: WBC 7.9, RBC 4.23, Hgb 12.6, Hct 37.8, MCV 89.4, MCH 29.8, MCHC 33.3, RDW 13.6, RDW Differential 44.3 H, Plt Count 300, MPV 10.7, Immature Gran % (Auto) 0.100, Neut % (Auto) 54.9, Lymph % (Auto) 34.1, [place] % (Auto) 9.2, Eos % (Auto) 1.4, Baso % (Auto) 0.3, Absolute Neuts (auto) 4.3, Total Counted Not Reportable 11/27/18 03:18: Sodium 143, Potassium 3.7, Chloride 110 H, Carbon Dioxide 25.0, Anion Gap 8, BUN 14, Creatinine 0.81, Est GFR (MDRD) Af Amer 96, Est GFR (MDRD) Non-Af 80, BUN/Creatinine Ratio 17.4, Glucose 106, Calcium 8.4 L, Triglycerides 150, Cholesterol 147, LDL Cholesterol 76, VLDL Cholesterol 30, HDL Cholesterol 41 11/27/18 03:18: Troponin I < 0.015 11/27/18 08:04: PT 13.4, INR 1.0, APTT 42.3 H Rhythm: EKG: ECHO: Stress Test: Cardiac Cath: PCI: CT Surgery: Holter monitor: EPS: PPM: CXR: Chest CT Scan: Assessment/Plan Patient has been seen and examined by myself and Nic lemus, and I agree with the above with the following addendum: 1. Atrial fibrillation: Patient appears to have rapid atrial fibrillation on and off for some time, making it very difficult to pursue DC cardioversion without the benefit of anticoagulation. Her atrial fibrillation may be problematic given her history of AV malformations in the past. This may make bleeding episodes a more common or likely occurrence. Her echocardiogram and stress test are negative for inducible ischemia and I would not recommend catheterization at this time. Given her chads 2?vascular score, she will require anticoagulation and possible antiarrhythmic therapy as well. We are having a difficult time controlling her heart rate despite her normal hemoglobin. Her TSH is slightly elevated however her T4 is within normal limits. It is doubtful the patient has significant hyper thyroidism to explain her rapid atrial fibrillation. Patient denies any long car rides recently so it is doubtful she has pulmonary embolism. It is possible the patient may have a pulmonary AVM which may explain her dyspnea, and rapid heart rate. Her RVSP however appear to be with 29 mmHg, and she appeared to have normal RV size and function. I recommend the patient change her atenolol to Toprol-XL 50 mill grams p.o. twice daily for better control and add Cardizem CD 120 mg p.o. daily and titrate up from there. Given her AV malformations I would not recommend nonreversible agent such as Xarelto or Eliquis at this time, and would recommend loading with Coumadin 5 mg today, 5 mg tomorrow, and 2.5 mg p.o. daily. Repeat INR on Sunday. Would recommend her INR between 2.0 and 3.0. If the patient is able to tolerate anticoagulation therapy for 4 to 6 weeks time, I have a low threshold for DC cardioversion. If we are unable to control her heart rate, she may require antiarrhythmic therapy such as flecainide or propafenone. I would not recommend amiodarone given her young age. We may want to give consideration to a CTA of her chest and lungs to evaluate for possible AV malformation. 2. Thank you very much for the opportunity to participate in the cardiac care of your patient. Consultation time took place between 130 and 2 PM. Code Visit Inpatient E&M: 70758 Init Hosp L2
[2018-11-27] MEDS: 0.9% Normal Saline 1,000 ML 100 ML IV (14:09)
--- NOTE | 2018-11-27 15:10 | EKG12_ITS ---
Test Reason : PRE STRESS TEST Blood Pressure : / mmHG Vent. Rate : 098 BPM Atrial Rate : 163 BPM P-R Int : 000 ms QRS Dur : 074 ms QT Int : 352 ms P-R-T Axes : 000 011 -30 degrees QTc Int : 449 ms Atrial fibrillation Nonspecific T wave abnormality Abnormal ECG No previous ECGs available Confirmed by SASHA LAST ([id number]), [employer] REKHA WALDEN ([id number]) on 12/02/2018 2:26:31 PM Referred By: SARAH Confirmed By:ANIRUDH LAST
--- NOTE | 2018-11-27 15:26 | NS ---
Spoke to Tomasa on PCU to relay message to RN in charge requesting usual weight entered upon admit in Nutrition Screening section to be changed from 223 Kg to 223 lbs. Pt reports UBW~223 lbs not, 490 lbs. Tamia Mclaughlin, MS, RD, LD
--- NOTE | 2018-11-27 16:13 | PCM.PN.BLA ---
Progress Note Patient was noted to convert to sinus rhythm. Her QTC was noted to be 430. After discussion with , patient will begin Cardizem 120 mg p.o. daily along with atenolol 50 mg p.o. twice daily. She will also get begin Coumadin therapy. Coumadin was chosen due to history of AVM and antidote available if needed. She will begin 5 mg today, 5 mg on , and 2.5 mg on 11/29/2018. She will check INR on 11/29/2018. Based on response to Cardizem further recommendation will be made. We will continue to monitor rate and rhythm.
[2018-11-27] MEDS: dilTIAZem CD 120 MG Capsule PO (17:22)
--- NOTE | 2018-11-27 18:38 | NURSING ---
Patient reported new onset of chest pain to this RN. EKG ordered. Per respiratory therapist patient refused EKG.
[2018-11-28] VITALS (7 sets, daily range): BP systolic 96–100; BP diastolic 59–65; PULSE 74–86; RESP 16; TEMP 36.6–36.9; O2SAT 92–97
[2018-11-28] MEDS: 0.9% Normal Saline 1,000 ML 100 ML IV (00:37)
[2018-11-28] MEDS: traZODone 100 MG Tablet PO (00:56)
[2018-11-28 06:15] LABS: Red Blood Count 3.89 M/mm3 (4.2-5.4); White Blood Count 5.3 K/mm3 (4.4-11.0)
[2018-11-28 06:16] LABS: Absolute Lymphocyte Count 2.55 X10^3/ul (0.83-4.51); Absolute Neutrophil Count 2.2 X10^3/uL (2.0-7.7); Basophil# 0.02 X10^3/uL; Basophil% 0.4 % (0-1); Eosinophil# 0.14 X10^3/uL; Eosinophils% 2.7 % (0-5); Hematocrit 35.5 % (37-47); Hemoglobin 11.8 g/dl (12.0-15.0); Lymphocyte # 2.55 X10^3/ul (4.0); Lymphocyte % 48.6 % (19-41); Mean Corp Hgb Conc 33.2 g/gl (32-36); Mean Corpuscular Hgb 30.3 pg (27.0-32.0); Mean Corpuscular Volume 91.3 fL (81-99); Mean Platelet Vol. 10.3 fl (6.2-12.0); Monocyte# 0.37 X10^3/uL; Neutrophil # 2.16 X10^3/uL (2.7-7.7); Neutrophil % 41.1 % (47-70); Platelet Count 268 K/mm3 (150-450); RBC Distribution Width CV 13.8 % (11.6-14.6)
[2018-11-28 06:17] LABS: POSITIVE COUNT NO; POSITIVE DIFFERENTIAL NO; POSITIVE MORPHOLOGY NO
[2018-11-28 06:21] LABS: Anion Gap 6 (5-15); BUN 10 mg/dL (7-18); BUN/Creat Ratio 12.1 RATIO (10-20); Calcium,Total 8.4 mg/dL (8.5-10.1); Chloride 115 mmol/L (98-107); Creatinine, Serum 0.83 mg/dL (0.55-1.02); EST Glomerular Filtration Rate 77 mL/min (>60); Est Glom Filt Rate - Afr Amer 94 mL/min (>60); Estimated Creatinine Clearance 77.98 ml/min; Glucose 105 mg/dL (74-106); Potassium 4.1 mmol/L (3.5-5.1); Sodium Level 144 mmol/L (136-145)
--- NOTE | 2018-11-28 08:54 | PCM.PN.CARD ---
Subjectve: Patient spontaneously converted to normal sinus rhythm last afternoon, and has been in sinus rhythm ever since. Telemetry negative. Patient feels much better in normal sinus rhythm. No chest pain or angina overnight. Coumadin started last evening. Objective: Vital Signs Temp Pulse Resp BP Pulse Ox 97.9 F 74 16 100/65 92 11/28/18 03:19 11/28/18 07:32 11/28/18 03:19 11/28/18 03:19 11/28/18 07:00 Oxygen Delivery Method Room Air Weight: 223 lb 1.725 oz Body Mass Index (BMI) 34.9 Intake and Output for Last 24 Hours 11/26/18 11/27/18 11/28/18 23:59 23:59 23:59 Intake Total 4604 / 4604 800 / 800 Output Total 2900 / 2900 1400 / 1400 Balance 1704 / 1704 -600 / -600 General: Awake, Alert, Oriented x 3 HEENT: PERRL, EOMI, Sclera Non Icteric Neck: Supple, Good ROM, No Lymph Node Enlargement Lungs: Clear to auscultation Cardiovascular: Regular Rhythm, Normal S1, Normal S2, No Murmurs, No Rubs, No Gallops Vascular: No Carotid Bruits, Normal Femoral Pulses, Normal Radial Pulses, Normal Dorsalis Pedal Pulse, Normal Posterior Tibial Pulses Abdomen: Bowel Sounds Present, Soft, Non Tender, No HSM, No Organomegaly Extremities: No Cyanosis, No Clubbing, No edema Neurological: No Focal Motor or Sensory Deficit 11/28/18 05:30: WBC 5.3, RBC 3.89 L, Hgb 11.8 L, Hct 35.5 L, MCV 91.3, MCH 30.3, MCHC 33.2, RDW 13.8, RDW Differential 46.0 H, Plt Count 268, MPV 10.3, Immature Gran % (Auto) 0.200, Neut % (Auto) 41.1 L, Lymph % (Auto) 48.6 H, [place] % (Auto) 7.0, Eos % (Auto) 2.7, Baso % (Auto) 0.4, Absolute Neuts (auto) 2.2, Total Counted Not Reportable 11/28/18 05:30: Sodium 144, Potassium 4.1, Chloride 115 H, Carbon Dioxide 23.0, Anion Gap 6, BUN 10, Creatinine 0.83, Est GFR (MDRD) Af Amer 94, Est GFR (MDRD) Non-Af 77, BUN/Creatinine Ratio 12.1, Glucose 105, Calcium 8.4 L Rhythm: EKG: ECHO: Stress Test: Cardiac Cath: PCI: CT Surgery: Holter monitor: EPS: PPM: CXR: Chest CT Scan: Medical Necessity - Tobacco Use Smoking Status: Never smoker Tobacco Use: Non-smoker Assessment/Plan Patient has been seen and examined by myself and Nic lemus, and I agree with the above with the following addendum: 1. Atrial fibrillation: Patient spontaneously converted to normal sinus rhythm last evening and feels much better. No recurrence of atrial fibrillation after Cardizem and beta-rakesh dual therapy. Her atrial fibrillation may be problematic given her history of AV malformations in the past however the patient states that most of her AVMs are superficial and have never been reported to be in her lungs.. This may make bleeding episodes a more common or likely occurrence. Her echocardiogram and stress test are negative for inducible ischemia and I would not recommend catheterization at this time. Given her chads 2?vascular score, she will require anticoagulation and possible antiarrhythmic therapy as well. Patient denies any long car rides recently so it is doubtful she has pulmonary embolism. It is possible the patient may have a pulmonary AVM which may explain her dyspnea, and rapid heart rate. Her RVSP however appear to be with 29 mmHg, and she appeared to have normal RV size and function. I recommend the patient change her atenolol to Toprol-XL 50 mill grams p.o. twice daily for better control and add Cardizem CD 120 mg p.o. daily and titrate up from there. This has converted to normal sinus rhythm for whatever its worth. Given her AV malformations I would not recommend nonreversible agent such as Xarelto or Eliquis at this time, and would recommend loading with Coumadin 5 mg today, 5 mg tomorrow, and 2.5 mg p.o. daily. Repeat INR on Sunday and Sunday. Would recommend her INR between 2.0 and 3.0. In addition, I recommend a 30-day event monitor to determine if the patient has recurrent atrial fibrillation. Given her young age, and atrial fibrillation, she may benefit from EP consultation for atrial fibrillation ablation. If however she has no recurrent symptoms on dual beta-rakesh and calcium channel rakesh therapy after 3 months time, we may consider discontinuation of her Coumadin in order to avoid AV malformation bleeding. If we are unable to control her heart rate, she may require antiarrhythmic therapy such as flecainide or propafenone. I would not recommend amiodarone given her young age. We may want to give consideration to a CTA or MRI/MRA of her chest and lungs to evaluate for possible AV malformation. 2. Thank you very much for the opportunity to participate in the cardiac care of your patient. Patient may be discharged home after being set up for a 30-day event monitor. I told the patient that if she has recurrent atrial fibrillation that she should return to the hospital we can make arrangements for transfer to a tertiary care facility for possible A. fib ablation procedure. d/w Dr Kwon. Code Visit Inpatient E&M: 24184 Subs Hosp L2
[2018-11-28] MEDS: Aspirin 81 MG TAB.CHEW PO (09:54)
[2018-11-28] MEDS: Polyethylene Glycol 3350 17 GM PACKET 8.5 GM PO (09:54)
[2018-11-28] MEDS: dilTIAZem CD 120 MG Capsule PO (09:55)
[2018-11-28] MEDS: Tolterodine Tartrate 4 MG CAP.SA PO (09:55)
[2018-11-28] MEDS: Docusate Sodium 100 MG Capsule PO (09:55)
[2018-11-28] MEDS: Atenolol 50 MG Tablet PO (09:55)
[2018-11-28] MEDS: Enoxaparin 100 MG/ML Syringe SC (09:55)
[2018-11-28] MEDS: DULoxetine Hcl 60 MG Capsule 120 MG PO (09:55)
[2018-11-28] MEDS: Meloxicam 15 MG Tablet PO (09:56)
[2018-11-28] MEDS: Pantoprazole Sodium 20 MG Tablet PO (09:56)
[2018-11-28] MEDS: Magnesium Oxide 400 MG Tablet PO (09:56)
[2018-11-28] MEDS: Pregabalin 75 MG Capsule 150 MG PO (10:03)
--- NOTE | 2018-11-28 10:24 | PCM.DC ---
- Discharge Diagnoses Current Active Problems: Current Active and Chronic Problems Atrial fibrillation with RVR (Acute) HTN (hypertension) (Chronic) AVM (arteriovenous malformation) (Chronic) Anxiety and depression (Chronic) Chronic back pain (Chronic) Fibromyalgia (Chronic) Obesity (BMI 30.0-34.9) (Chronic) Osteoarthritis (Chronic) You will use the following diet at home:: Cardiac Your food should be the consistency of: Regular Your liquids should be the consistency of: Regular/Thin Discharge Activity: Return to Normal Activity Call your doctor if you observe: Shortness of breath, Dizziness, Chest pain, Increased palpitations (irregular heartbeat), - - bleeding episodes Instructions: Discharge Instructions for Atrial Fibrillation, What Is Atrial Flutter/Atrial Fibrillation?, ED Paroxysmal Atrial Flutter, Taking?Coumadin, Warfarin Sodium Oral tablet Additional Instructions: follow up with PCP for INR tomorrow and Sunday. To take coumadin 5mg tomorrow, then 2.5mg daily after that. To have 30 day event monitor, results to be sent to Dr Delbert Newton Allergies/Adverse Reactions: Allergies meperidine [From Demerol] Allergy (Verified 11/26/18 20:55) Vomiting Penicillins [PCN] Allergy (Verified 11/26/18 20:55) Unknown adhesive tape Adverse Reaction (Verified 11/26/18 22:45) Hives ciprofloxacin [From Cipro] Adverse Reaction (Verified 11/26/18 22:45) Hives floxacillin Adverse Reaction (Verified 11/26/18 22:45) Vomiting Sulfa (Sulfonamide Antibiotics) Adverse Reaction (Verified 11/26/18 22:45) Rash Medications to take at Discharge Cholecalciferol (Vitamin D3) [Vitamin D3] 2,000 unit PO DAILY 11/26/18 Cyanocobalamin (Vitamin B-12) [Vitamin B-12] 2,000 mcg PO DAILY 11/26/18 Docusate Sodium [Dulcolax Stool Softener] 100 mg PO BID 11/26/18 Duloxetine Hcl [Cymbalta] 120 mg PO DAILY 11/26/18 Magnesium Oxide 400 mg PO DAILY 11/26/18 Omeprazole [Prilosec] 40 mg PO DAILY 11/26/18 Polyethylene Glycol 3350 [Miralax] 119 gm PO TID 11/26/18 Pregabalin [Lyrica] 150 mg PO 4X/DAY 11/26/18 Trospium Chloride [Sanctura] 20 mg PO BID 11/26/18 traZODone [Desyrel] 100 mg PO QHS PRN 11/26/18 Metoprolol(XL)Succ [Toprol Xl (Beta Sulema)] 50 mg PO DAILY #30 tablet 11/28/18 Warfarin Sodium [Coumadin] 2.5 mg PO DAILY #30 tablet 11/28/18 The following prescriptions were given: Metoprolol(XL)Succ [Toprol Xl (Beta Sulema)] 50 mg PO DAILY #30 tablet Warfarin Sodium [Coumadin] 2.5 mg PO DAILY #30 tablet Primary Care Physician: Fátima Rodriguez MD [Primary Care Provider] - Please follow up with your Primary Care Physician in: one week Test Results: Test results from this visit will be discussed in further detail at your follow-up appointment, if applicable. Please Follow Up With: Mil Newton MD - [phone] When: Sunday; call his office for an appointment Proposed Discharge Date: 11/28/18
--- NOTE | 2018-11-28 10:29 | DCINST_ITS ---
- Discharge Diagnoses Current Active Problems: Current Active and Chronic Problems Atrial fibrillation with RVR (Acute) HTN (hypertension) (Chronic) AVM (arteriovenous malformation) (Chronic) Anxiety and depression (Chronic) Chronic back pain (Chronic) Fibromyalgia (Chronic) Obesity (BMI 30.0-34.9) (Chronic) Osteoarthritis (Chronic) You will use the following diet at home:: Cardiac Your food should be the consistency of: Regular Your liquids should be the consistency of: Regular/Thin Discharge Activity: Return to Normal Activity Call your doctor if you observe: Shortness of breath, Dizziness, Chest pain, Increased palpitations (irregular heartbeat), - - bleeding episodes Instructions: Discharge Instructions for Atrial Fibrillation, What Is Atrial Flutter/Atrial Fibrillation?, ED Paroxysmal Atrial Flutter, Taking?Coumadin, Warfarin Sodium Oral tablet Additional Instructions: follow up with PCP for INR tomorrow and Sunday. To take coumadin 5mg tomorrow, then 2.5mg daily after that. To have 30 day event monitor, results to be sent to Dr Delbert Newton Allergies/Adverse Reactions: Allergies meperidine [From Demerol] Allergy (Verified 11/26/18 20:55) Vomiting Penicillins [PCN] Allergy (Verified 11/26/18 20:55) Unknown adhesive tape Adverse Reaction (Verified 11/26/18 22:45) Hives ciprofloxacin [From Cipro] Adverse Reaction (Verified 11/26/18 22:45) Hives floxacillin Adverse Reaction (Verified 11/26/18 22:45) Vomiting Sulfa (Sulfonamide Antibiotics) Adverse Reaction (Verified 11/26/18 22:45) Rash Medications to take at Discharge Cholecalciferol (Vitamin D3) [Vitamin D3] 2,000 unit PO DAILY 11/26/18 Cyanocobalamin (Vitamin B-12) [Vitamin B-12] 2,000 mcg PO DAILY 11/26/18 Docusate Sodium [Dulcolax Stool Softener] 100 mg PO BID 11/26/18 Duloxetine Hcl [Cymbalta] 120 mg PO DAILY 11/26/18 Magnesium Oxide 400 mg PO DAILY 11/26/18 Omeprazole [Prilosec] 40 mg PO DAILY 11/26/18 Polyethylene Glycol 3350 [Miralax] 119 gm PO TID 11/26/18 Pregabalin [Lyrica] 150 mg PO 4X/DAY 11/26/18 Trospium Chloride [Sanctura] 20 mg PO BID 11/26/18 traZODone [Desyrel] 100 mg PO QHS PRN 11/26/18 Metoprolol(XL)Succ [Toprol Xl (Beta Sulema)] 50 mg PO DAILY #30 tablet 11/28/18 Warfarin Sodium [Coumadin] 2.5 mg PO DAILY #30 tablet 11/28/18 The following prescriptions were given: Metoprolol(XL)Succ [Toprol Xl (Beta Sulema)] 50 mg PO DAILY #30 tablet Warfarin Sodium [Coumadin] 2.5 mg PO DAILY #30 tablet Primary Care Physician: Fátima Rodriguez MD [Primary Care Provider] - Please follow up with your Primary Care Physician in: one week Test Results: Test results from this visit will be discussed in further detail at your follow- up appointment, if applicable. Please Follow Up With: Mil Newton MD - [phone] When: Sunday; call his office for an appointment Proposed Discharge Date: 11/28/18
--- NOTE | 2018-11-28 10:30 | PCM.DC.SUM ---
Discharge Date and Diagnosis Date of Admission: 11/26/18 Date of Discharge: 11/28/18 - Primary Discharge Diagnosis Active and Suspected Problems Atrial fibrillation with RVR (Acute) - Secondary Discharge Diagnosis Chronic Problems HTN (hypertension) (Chronic) AVM (arteriovenous malformation) (Chronic) Anxiety and depression (Chronic) Chronic back pain (Chronic) Fibromyalgia (Chronic) Obesity (BMI 30.0-34.9) (Chronic) Osteoarthritis (Chronic) Hospital Course and Treatment Imaging Results: Diagnostic Data Chest X-Ray 11/26/18 21:37 IMPRESSION: Elevated right hemidiaphragm with minimal right basilar atelectasis. Electronically Signed: Luis DrummondonDO at 22:04 EDT Tel [phone], Service support , Stress Echo Interpretation Summary The estimated ejection fraction is 65 %. Normal, adequate, treadmill echocardiogram. Negative for ischemia by EKG and echocardiographic criteria. No anginal symptoms noted. No arrhythmias noted other than baseline atrial fibrillation. Test terminated due to dyspnea. Final LVEF is 75%. No complications. cardiology Operations: None Procedures: 2-D Echocardiogram, Stress test Summary of Care Provided: The patient is a 53 year old F with past medical history of AV malformations and hypertension. She was admitted through the ED on 11/26/2018 with a complaint of 3-day history of intermittent palpitations and heart racing with assisted lightheadedness and dizziness with near syncope occasionally. She came to the ED and was found to be in A. fib with RVR. Troponin was negative and chest x-ray showed only mild right basilar atelectasis. She received Cardizem bolus and was started on Cardizem drip and admitted and managed for A. fib with RVR which was of new onset. Cardiology was consulted. She was also started on Lovenox. TSH was mildly elevated but free T4 was within normal limits indicating subclinical hypothyroidism. She had a stress echocardiogram which was negative and showed EF of 75%. RVSP was approximately 29 mmHg. Patient was started on cardizem and metoprolol. Cardizem was however subsequently discontinued on account of patient's marginally low blood pressure. She remained stable and she was transitioned to Coumadin. She achieved 2 doses of 5 mg of Coumadin before discharge. Per discussion with cardiology, anticoagulants were no use on account of patient's history of AV malformations and risk of bleeding from the AV malformations. Therefore Coumadin was selected as it effect could be reversed quickly. Patient was discharged home to take 5 mg of Coumadin on 11/29/2018 and continue with 2.5 mg of Coumadin subsequently. She is to follow-up with cardiology on 11/29/2018 for INR check and also on 12/02/2018. She is also to follow-up with her primary care doctor and cardiology. Target INR is between 2 and 3. She was also fitted with a 30-day Holter monitor to assess if A. fib was paroxysmal and not as per cardiology, if she converted to sinus rhythm and stayed in sinus rhythm, they would not want to anticoagulate her for long in light of her history of AV malformation. Patient seen and examined prior to discharge. She had no complaints and felt well. She had converted to sinus rhythm spontaneously. Review of systems otherwise negative. Labs and vitals reviewed. Home medication reviewed and reconciled. o/e: Vital Signs Height 5 ft 7 in Weight: 223 lb 1.725 oz Weight in Pounds 223.1 lbs Pulse Ox 96 Temperature 98.5 F Pulse Rate 80 Respiratory Rate 16 Blood Pressure [2nd BP] 90/74 Blood Pressure 96/59 Blood Pressure Position [2nd Semi-Fowlers BP] Blood Pressure Position Semi-Fowlers [] General: Alert, Oriented x3, Cooperative, No apparent distress HEENT: Atraumatic, PERRLA, EOMI, Normocephalic Oral: Moist Mucosa Neck: Supple, No JVD, Negative Carotid Bruits Lungs: Clear to auscultation, Normal air movement, No rhonchi, No wheeze Cardiovascular: Normal S1, Normal S2, regular rate and rhythm, no rhythm Abdomen: Bowel Sounds Present, Soft, Non Tender Extremities: No clubbing, No cyanosis, No edema, Capillary Refill Less than 3 Seconds Skin: No rashes, No breakdown Musculoskeletal: No Tenderness to Palpation of Joints or Extremities Lymphatic: No Cervical, Supraclavicular, or Inguinal Adenopathy Neurological: Cranial nerves II-XII grossly intact, Neuro grossly intact, Motor Exam 5/5 strength throughout Psych/Mental Status: Normal Affect, Appropriate, Alert and oriented to time, place, person, mood and affect Plan as above. She was discharged home with PO metoprolol XL 50mg daily. - Physical Exam Vital Signs Temp Pulse Resp BP Pulse Ox 98.5 F 86 16 96/59 L 96 11/28/18 09:19 11/28/18 09:19 11/28/18 09:19 11/28/18 09:19 11/28/18 09:19 Oxygen Delivery Method Room Air Weight: 223 lb 1.725 oz Body Mass Index (BMI) 34.9 Intake and Output for Last 24 Hours 11/26/18 11/27/18 11/28/18 23:59 23:59 23:59 Intake Total 4604 / 4604 800 / 800 Output Total 2900 / 2900 1400 / 1400 Balance 1704 / 1704 -600 / -600 Laboratory Tests Past 24 Hrs 11/28/18 11/28/18 05:30 05:30 WBC 5.3 RBC 3.89 L Hgb 11.8 L Hct 35.5 L MCV 91.3 MCH 30.3 MCHC 33.2 RDW 13.8 RDW Differential 46.0 H Plt Count 268 MPV 10.3 Immature Gran % (Auto) 0.200 Neut % (Auto) 41.1 L Lymph % (Auto) 48.6 H [place] % (Auto) 7.0 Eos % (Auto) 2.7 Baso % (Auto) 0.4 Absolute Neuts (auto) 2.2 Absolute Lymphs (auto) 2.55 Total Counted Not Reportable Sodium 144 Potassium 4.1 Chloride 115 H Carbon Dioxide 23.0 Anion Gap 6 BUN 10 Creatinine 0.83 Estim Creat Clear Calc 77.98 Est GFR (MDRD) Af Amer 94 Est GFR (MDRD) Non-Af 77 BUN/Creatinine Ratio 12.1 Glucose 105 Calcium 8.4 L Discharge Diet: Low fat/ Low Cholesterol Discharge Activity: Return to Normal Activity Call your doctor if you observe: Shortness of breath, Dizziness, Chest pain, Increased palpitations (irregular heartbeat), - - bleeding episodes Home Medications: Medications to take at Discharge Cholecalciferol (Vitamin D3) [Vitamin D3] 2,000 unit PO DAILY 11/26/18 Cyanocobalamin (Vitamin B-12) [Vitamin B-12] 2,000 mcg PO DAILY 11/26/18 Docusate Sodium [Dulcolax Stool Softener] 100 mg PO BID 11/26/18 Duloxetine Hcl [Cymbalta] 120 mg PO DAILY 11/26/18 Magnesium Oxide 400 mg PO DAILY 11/26/18 Omeprazole [Prilosec] 40 mg PO DAILY 11/26/18 Polyethylene Glycol 3350 [Miralax] 119 gm PO TID 11/26/18 Pregabalin [Lyrica] 150 mg PO 4X/DAY 11/26/18 Trospium Chloride [Sanctura] 20 mg PO BID 11/26/18 traZODone [Desyrel] 100 mg PO QHS PRN 11/26/18 Metoprolol(XL)Succ [Toprol Xl (Beta Sulema)] 50 mg PO DAILY #30 tablet 11/28/18 Warfarin Sodium [Coumadin] 2.5 mg PO DAILY #30 tab 11/28/18 Following Prescrptions Were Given to Patient: Metoprolol(XL)Succ [Toprol Xl (Beta Sulema)] 50 mg PO DAILY #30 tablet Warfarin Sodium [Coumadin] 2.5 mg PO DAILY #30 tab Primary Care Physician: Fátima Rodriguez MD [Primary Care Provider] - Please follow up with your Primary Care Physician in: one week Please Follow Up With: Mil Newton MD - [phone] When: Sunday; call his office for an appointment Patient Instructions: Warfarin Sodium Oral tablet, Taking?Coumadin, What Is Atrial Flutter/Atrial Fibrillation?, Discharge Instructions for Atrial Fibrillation, ED Paroxysmal Atrial Flutter Disposition: Home Minutes spent on discharge:: 45 Patient Condition:: Stable Medical Necessity - Tobacco Use Smoking Status: Never smoker Tobacco Use: Non-smoker Meaningful Use Info Meaningful Use Diagnoses (Choose all that apply): None applicable Code Visit Inpatient E&M: 74214 Disch Hosp
--- NOTE | 2018-11-28 14:06 | NURSING ---
Patient provided handouts regarding Metoprolol and Warfarin. Discharge instructions discussed in detail with the patient and her . Questions answered.
== END 2018-11-28 13:17 | disposition home or self-care (01) | DRG 309 ==
LOC: ED 22:54 → PCU 11-27 00:08
PROVIDERS: Internal Medicine Cardiovascular Disease; Admitting Provider Family Medicine; Emergency Provider Emergency Medicine; Family Provider Internal Medicine; PCP Internal Medicine; Visit Provider Student in an Organized Health Care Education/Training Program
DX: I48.91 Unspecified atrial fibrillation (principal); Q27.30 Arteriovenous malformation, site unspecified; E66.9 Obesity, unspecified; Z68.34 Body mass index [BMI] 34.0-34.9, adult; M19.90 Unspecified osteoarthritis, unspecified site; F41.9 Anxiety disorder, unspecified; F32.9 Major depressive disorder, single episode, unspecified; G89.29 Other chronic pain; M54.9 Dorsalgia, unspecified; M79.7 Fibromyalgia; I10 Essential (primary) hypertension
CPT/HCPCS: 36415; 71045; 80048; 80061; 80307; 83735; 84439; 84443; 84484; 85025; 85610; 85730; 93005; 93017; 93306; 93350; 99285; J7030; A4216

== ENCOUNTER → 2018-11-28 13:10 | Outpatient (REF) | payer MEDICARE, MEDICAID, SELFPAY ==
[2018-11-27 10:44] VITALS: BMI 34.9
== END ==
LOC: CVS 13:10
PROVIDERS: Family Provider Internal Medicine; PCP Internal Medicine; Referring Provider Student in an Organized Health Care Education/Training Program; Visit Provider Student in an Organized Health Care Education/Training Program
DX: I48.91 Unspecified atrial fibrillation (principal)
CPT/HCPCS: 93270

== ENCOUNTER → 2018-12-02 09:41 | Outpatient (CLI) | payer MEDICARE, MEDICAID, SELFPAY ==
[2018-11-27 10:44] VITALS: BMI 34.9
[2018-12-02 10:12] LABS: International Normalized Ratio 1.9; Prothrombin Time (Protime)PT. 22.1 SECONDS (11.7-14.9)
== END ==
PROVIDERS: Family Provider Internal Medicine; PCP Internal Medicine; Referring Provider Nurse Practitioner Family; Visit Provider Nurse Practitioner Family
DX: Z79.01 Long term (current) use of anticoagulants (principal)
CPT/HCPCS: 36415; 85610

== ENCOUNTER 2018-12-18 14:20 | Outpatient (RCR) | payer MEDICARE, MEDICAID, SELFPAY ==
[2018-11-27 10:44] VITALS: BMI 34.9
[2018-12-11 17:28] LABS: International Normalized Ratio 3.4; Prothrombin Time (Protime)PT. 34.2 SECONDS (11.7-14.9)
[2018-12-18 15:05] LABS: Prothrombin Time (Protime)PT. 35.6 SECONDS (11.7-14.9)
[2018-12-18 15:11] LABS: International Normalized Ratio 3.5
== END 2018-12-18 15:20 | disposition home or self-care (01) ==
LOC: LAB 14:20
PROVIDERS: Family Provider Internal Medicine; PCP Internal Medicine; Referring Provider Internal Medicine Cardiovascular Disease; Visit Provider Internal Medicine Cardiovascular Disease
DX: I48.91 Unspecified atrial fibrillation (principal); Z79.01 Long term (current) use of anticoagulants
CPT/HCPCS: 36415; 85610

== ENCOUNTER 2019-01-16 11:50 | Outpatient (RCR) | payer MEDICARE, MEDICAID, SELFPAY ==
[2018-12-21 08:29] VITALS: BMI 34.9
[2018-12-26 13:53] LABS: Prothrombin Time (Protime)PT. 38.4 SECONDS (11.7-14.9)
[2018-12-26 13:54] LABS: International Normalized Ratio 3.9
[2019-01-02 12:38] LABS: Prothrombin Time (Protime)PT. 38.4 SECONDS (11.7-14.9)
[2019-01-02 12:42] LABS: International Normalized Ratio 3.9
[2019-01-09 14:13] LABS: International Normalized Ratio 1.1; Prothrombin Time (Protime)PT. 14.4 SECONDS (11.7-14.9)
[2019-01-16 13:07] LABS: International Normalized Ratio 1.4; Prothrombin Time (Protime)PT. 17.4 SECONDS (11.7-14.9)
== END 2019-01-16 12:00 | disposition home or self-care (01) ==
LOC: LAB 11:50
PROVIDERS: Family Provider Internal Medicine; PCP Internal Medicine; Referring Provider Internal Medicine Cardiovascular Disease; Visit Provider Internal Medicine Cardiovascular Disease
DX: I48.91 Unspecified atrial fibrillation (principal); Z79.01 Long term (current) use of anticoagulants
CPT/HCPCS: 36415; 85610

== ENCOUNTER 2019-02-13 12:57 | Outpatient (RCR) | payer MEDICARE, MEDICAID, SELFPAY ==
[2019-01-20 08:57] VITALS: BMI 35.2
[2019-01-27 13:24] LABS: International Normalized Ratio 3.2; Prothrombin Time (Protime)PT. 32.8 SECONDS (11.7-14.9)
[2019-02-06 11:53] LABS: Prothrombin Time (Protime)PT. 36.2 SECONDS (11.7-14.9)
[2019-02-06 11:57] LABS: International Normalized Ratio 3.6
[2019-02-13 13:54] LABS: International Normalized Ratio 3.7; Prothrombin Time (Protime)PT. 37.1 SECONDS (11.7-14.9)
== END 2019-02-19 06:29 | disposition home or self-care (01) ==
LOC: LAB 12:57
PROVIDERS: Family Provider Internal Medicine; PCP Internal Medicine; Referring Provider Internal Medicine Cardiovascular Disease; Visit Provider Internal Medicine Cardiovascular Disease
DX: I48.91 Unspecified atrial fibrillation (principal); Z79.01 Long term (current) use of anticoagulants
CPT/HCPCS: 36415; 85610

== ENCOUNTER 2019-03-13 14:09 | Outpatient (RCR) | payer MEDICARE, MEDICAID, SELFPAY ==
[2019-01-20 08:57] VITALS: BMI 35.2
[2019-02-20 14:30] LABS: International Normalized Ratio 3.6; Prothrombin Time (Protime)PT. 36.1 SECONDS (11.7-14.9)
[2019-03-06 11:48] LABS: Prothrombin Time (Protime)PT. 36.8 SECONDS (11.7-14.9)
[2019-03-06 11:51] LABS: International Normalized Ratio 3.7
[2019-03-13 15:25] LABS: International Normalized Ratio 2.5; Prothrombin Time (Protime)PT. 27.1 SECONDS (11.7-14.9)
== END 2019-03-13 16:00 | disposition home or self-care (01) ==
LOC: LAB 14:09
PROVIDERS: Family Provider Internal Medicine; PCP Internal Medicine; Referring Provider Internal Medicine Cardiovascular Disease; Visit Provider Internal Medicine Cardiovascular Disease
DX: I48.91 Unspecified atrial fibrillation (principal); Z79.01 Long term (current) use of anticoagulants
CPT/HCPCS: 36415; 85610

== ENCOUNTER 2019-04-17 12:49 | Outpatient (RCR) | payer MEDICARE, MEDICAID, SELFPAY ==
[2019-01-20 08:57] VITALS: BMI 35.2
[2019-04-03 13:53] LABS: International Normalized Ratio 3.5
[2019-04-03 13:56] LABS: Prothrombin Time (Protime)PT. 35.2 SECONDS (11.7-14.9)
[2019-04-17 13:59] LABS: International Normalized Ratio 3.3; Prothrombin Time (Protime)PT. 33.7 SECONDS (11.7-14.9)
== END 2019-04-17 14:00 | disposition home or self-care (01) ==
LOC: LAB 12:49
PROVIDERS: Family Provider Internal Medicine; PCP Internal Medicine; Referring Provider Internal Medicine Cardiovascular Disease; Visit Provider Internal Medicine Cardiovascular Disease
DX: I48.91 Unspecified atrial fibrillation (principal); Z79.01 Long term (current) use of anticoagulants
CPT/HCPCS: 36415; 85610

== ENCOUNTER 2019-05-01 12:01 | Outpatient (RCR) | payer MEDICARE, MEDICAID, SELFPAY ==
[2019-01-20 08:57] VITALS: BMI 35.2
[2019-05-01 13:25] LABS: International Normalized Ratio 2.5; Prothrombin Time (Protime)PT. 26.9 SECONDS (11.7-14.9)
== END 2019-05-01 18:00 | disposition home or self-care (01) ==
LOC: LAB 12:01
PROVIDERS: Family Provider Internal Medicine; PCP Internal Medicine; Referring Provider Internal Medicine Cardiovascular Disease; Visit Provider Internal Medicine Cardiovascular Disease
DX: I48.91 Unspecified atrial fibrillation (principal); Z79.01 Long term (current) use of anticoagulants
CPT/HCPCS: 36415; 85610

== ENCOUNTER 2019-05-11 19:07 | Observation (INO) | payer MEDICARE, MEDICAID, SELFPAY ==
[2019-01-20 08:57] VITALS: BMI 35.2
[2019-05-11] VITALS (13 sets, daily range): BP systolic 116–142; BP diastolic 78–104; PULSE 91–137; RESP 12–24; TEMP 36.4–37.2; O2SAT 95–100; BMI 36.0; BMI 37.0; BMI 36.6; BMI 36.7
--- NOTE | 2019-05-11 19:23 | EKG12_ITS ---
Test Reason : PALPS Blood Pressure : / mmHG Vent. Rate : 111 BPM Atrial Rate : 111 BPM P-R Int : 184 ms QRS Dur : 068 ms QT Int : 312 ms P-R-T Axes : 057 015 061 degrees QTc Int : 424 ms Sinus tachycardia T wave abnormality, consider anterior ischemia Abnormal ECG Confirmed by NALDO POWER, TACHO ([id number]), photography editor ALBERTO GOULD ([id number]) on 05/16/2019 10:23:58 AM Referred By: Mil Newton Confirmed By:TACHO HITCHCOCK MD
--- NOTE | 2019-05-11 19:23 | RAD_ITS ---
STUDY: X-RAY CHEST REASON FOR EXAM: Female, 53 years old. Chest pain TECHNIQUE: Frontal view COMPARISON: November 26, 2018 FINDINGS: The lungs are not fully expanded. Trace basilar atelectasis. Normal size heart. Normal mediastinum and gabby. Normal visualized pulmonary arteries. Normal visualized aortic arch and descending thoracic aorta. Normal visualized thoracic spine. Normal visualized ribs, clavicles, and shoulders. There is no demonstrated abnormality of the visualized soft tissue structures of the upper abdomen. RAD/Chest 1 View (Portable) IMPRESSION: Basilar atelectasis. Electronically Signed: Terry Sawyer DO at 20:15 EDT Tel [phone], Service support ,
[2019-05-11 19:41] LABS: Absolute Lymphocyte Count 2.15 X10^3/uL (0.83-4.51); Absolute Neutrophil Count 5.6 X10^3/uL (2.0-7.7); Basophil# 0.03 X10^3/uL; Basophil% 0.3 % (0-1); Eosinophil# 0.19 X10^3/uL; Eosinophils% 2.2 % (0-5); Hematocrit 40.6 % (37-47); Hemoglobin 13.4 g/dL (12.0-15.0); Lymphocyte # 2.15 X10^3/ul (4.0); Mean Corpuscular Hgb 29.6 pg (27.0-32.0); Mean Corpuscular Volume 89.8 fL (81-99); Mean Platelet Vol. 9.7 fl (6.2-12.0); NRBC Flagged by Analyzer 0 % (0-5); Neutrophil % 65.2 % (47-70); Platelet Count 337 K/mm3 (150-450); RBC Distribution Width CV 14.3 % (11.6-14.6); RBC Distribution Width SD 46.9 fl (35.1-43.9); Red Blood Count 4.52 M/mm3 (4.2-5.4); White Blood Count 8.6 K/mm3 (4.4-11.0)
[2019-05-11 19:50] LABS: Prothrombin Time (Protime)PT. 22.6 SECONDS (11.7-14.9)
[2019-05-11 20:01] LABS: Anion Gap 6 (5-15); BUN 9 mg/dL (7-18); BUN/Creat Ratio 9.7 RATIO (10-20); Calcium,Total 8.8 mg/dL (8.5-10.1); Chloride 106 mmol/L (98-107); Creatinine, Serum 0.93 mg/dL (0.55-1.02); EST Glomerular Filtration Rate 67 mL/min (>60); Est Glom Filt Rate - Afr Amer 82 mL/min (>60); Estimated Creatinine Clearance 69.59 ml/min; Glucose 92 mg/dL (74-106); Potassium 3.5 mmol/L (3.5-5.1); Sodium Level 141 mmol/L (136-145)
[2019-05-11] MEDS: 0.9% Normal Saline 1,000 ML 999 ML IV (20:12)
--- NOTE | 2019-05-11 20:27 | ED.DCSUM_ITS ---
- ER Visit Summary Date of Service: 05/11/19 Chief Complaint: Palpitations History of Present Illness: The patient is a 53 F who sees and Dr[address] ramos to. She reports that approximate 3:00 this afternoon she had the onset of a fast heart rate. She states it does not seem irregular. At the highest that she has measured this is been 127. This is similar to when she had atrial fibrillation in the past. Patient reports that on the way to the emergency department she developed a sharp left-sided chest pain that lasted approximately 15 minutes. This was while she was at rest. It was 7-10 at worst and she is pain-free currently. The pain is worsened by nothing. It was relieved by deep breaths. She does report that she was nauseated, short of breath, and diaphoretic with the pain. She also reports that she has been lightheaded. She denies passing out. Physical Examination: Vitals: Stable. Afebrile. General: Well-nourished and well-developed. Head: Normocephalic atraumatic. Neck: Supple, no lymphadenopathy. No JVD. Nontender. Cardiovascular: Tachycardic regular rhythm. No murmurs. Respiratory: No respiratory distress. Clear to auscultation bilaterally. Abdominal: Soft, nontender, nondistended, normal bowel sounds. No guarding, rebound, or peritoneal signs. Back: Nontender. Extremities: Nontender, no edema. Skin: Normal color, no rash. Neurologic: Alert and oriented ?3. Cranial nerves II through XII are intact. Normal strength and sensation. Psych: Normal affect. Test Results: EKG is sinus tachycardia [address] changes and artifact. Is essentially unchanged from November 27 2 because of . Troponin is negative. INR is 2.0. Chem-7 is normal. CBC is normal. TSH is 3.81. Clinical Impression(s) from Imaging Studies Chest X-Ray 05/11/19 19:23 IMPRESSION: Basilar atelectasis. Electronically Signed: Terry Sawyer DO at 20:15 EDT Tel [phone], Service support , Brain CT 05/11/19 20:42 IMPRESSION: Normal unenhanced CT scan of the brain. Electronically Signed: Terry Sawyer DO at 21:16 EDT Tel [phone], Service support , ADDENDUM: 05/11/192131 IMPRESSION: Normal unenhanced CT scan of the brain. N.B. : The above information has been verbally conveyed by Terry Sawyer DO to Terrell Valverde MD, on 05/11/2019 21:25:33 (ET). Electronically Signed: Terry Sawyer DO at 21:16 EDT Tel [phone], Service support , ADDENDUM: 05/11/192131 IMPRESSION: Normal unenhanced CT scan of the brain. N.B. : The above information has been verbally conveyed by Terry Sawyer DO to Terrell Valverde MD, on 05/11/2019 21:25:33 (ET). Electronically Signed: Terry Sawyer DO at 21:16 EDT Tel [phone], Service support , Chest CTA 05/11/19 20:42 IMPRESSION: Normal CTA chest examination, without a demonstrated pulmonary embolism or arterial dissection. Electronically Signed: Terry Sawyer DO at 22:11 EDT Tel [phone], Service support , Emergency Department Course and Treatment: While in the emergency department the patient developed a right facial droop. This began approximately 8:30 PM. Neurologic exam at that time did show questionable right facial droop. However, when the patient was distracted this did not seem to be present. She also had weakness in both arms and both legs. Shortly thereafter they facial droop resolved. Her NIH scale is 0. She is not a TPA candidate due to an INR of 2.0 and the brevity of the symptoms. She was discussed with Dr. Shah, the neurologist at [facility], and he agrees with this. Treatment Plan: Patient was discussed with Dr. Cohen. She will be admitted to the hospital for further evaluation and treatment. Disposition: Admitted in improved condition. Impression: 1. Palpitations. 2. Sinus tachycardia. 3. Atypical chest pain. 4. Right facial droop. 5. Coumadin coagulopathy. This note was generated with [employer] dictation software. It may contain incorrect words, spelling, and punctuation that were not noted in review of the chart prior to signing ED Disposition - Plan for ED Patient: Referrals: Fátima Rodriguez MD [Primary Care Provider] -
[2019-05-11 20:29] LABS: Thyroid Stim Hormone (TSH) 3.81 uIU/mL (0.358-3.74)
--- NOTE | 2019-05-11 20:42 | CT_ITS ---
STUDY: CTA CHEST REASON FOR EXAM: Female, 53 years old. Chest pain RADIATION DOSAGE (If Supplied By Facility): CTDIvol = ( 16.16 ) mGy, DLP = ( 479.85 ) mGycm TECHNIQUE: The examination was performed with the intravenous administration of IV Isovue 370 100. Post-processing of the angiographic images was performed, with multiplanar reformation and 3D reconstruction. Individualized dose optimization techniques were used for this CT. COMPARISON: None. FINDINGS: Normal enhancement of the main pulmonary artery and right and left pulmonary arteries. Normal enhancement of the bilateral peripheral pulmonary arteries. There is no demonstrated pulmonary embolism. Normal thoracic aorta and visualized great vessels. There is no demonstrated aortic dissection. Normal heart and pericardium. Normal mediastinum. Normal hilar regions. Normal visualized trachea and bronchi. The lungs are well expanded. Normal pulmonary parenchyma. Normal pleura. Normal chest wall structures. Normal osseous structures. Normal visualized upper abdomen. CT/CTA Chest W/WO Contrast IMPRESSION: Normal CTA chest examination, without a demonstrated pulmonary embolism or arterial dissection. Electronically Signed: Terry Sawyer DO at 22:11 EDT Tel [phone], Service support ,
--- NOTE | 2019-05-11 20:42 | CT_ITS ---
We are attempting to reach an attending provider to discuss findings. An addendum with communication details will be sent when the communication is complete. STUDY: CT BRAIN WITHOUT CONTRAST REASON FOR EXAM: Female, 53 years old. Stroke RADIATION DOSAGE (If Supplied By Facility): CTDIvol = ( 44.99 ) mGy, DLP = ( 796.11 ) mGycm TECHNIQUE: Transaxial CT imaging of the brain was performed without administration of intravenous contrast material. Individualized dose optimization techniques were used for this CT. COMPARISON: No relevant priors. FINDINGS: Normal soft tissue structures. Normal calvarium. Normal size ventricles and extra-axial spaces for the patient's age. Normal white matter tracts of the cerebral hemispheres. Calcifications of the basal ganglia. Normal thalami. Normal brainstem. Normal cerebellum. There is no intracranial hemorrhage. There are no findings of an acute ischemic infarction. Normal visualized paranasal sinuses. CT/Brain/Head without Contrast IMPRESSION: Normal unenhanced CT scan of the brain. Electronically Signed: Terry Sawyer DO at 21:16 EDT Tel [phone], Service support ,
--- NOTE | 2019-05-11 20:44 | ED.RN ---
THIS NURSE CALLED TO THE ROOM FOR PT HAVING PAIN IN HER JAW WITH LEFT SIDE FACIAL DROOP. DR KOROMA TO THE ROOM. NIH COMPLETE. STROKE TEAM CALLED
--- NOTE | 2019-05-11 21:04 | ED.RN ---
FACE SHEET FAXED AND RECEIVED BY [facility] @[id number]
[2019-05-11] MEDS: Metoprolol(XL)Succ 50 MG Tablet PO (22:20)
[2019-05-11] MEDS: Pregabalin 75 MG Capsule 150 MG PO (22:20)
--- NOTE | 2019-05-11 22:29 | HP.PCM_ITS ---
Problem List (1) Psychosis Status: Acute History of Present Illness Date of Admission: 05/11/19 Chief Complaint: palpitations The patient is a 53 year old F with a significant history of atrial fibrillation; hypertension; multiple surgeries for AVMs; and fibromyalgia who presented to the emergency department with palpitations. On presentation patient was found to be in sinus tach with heart rate in the 130s but later she went into sinus rhythm with normal heart rate. While in the emergency department the patient began to have some slurring speech and twisting of her mouth and lips. CT/CTA of head and neck vessels were done. Emergency department doctor discussed the case with tele-neurologist who recommended MRI. While at the emergency department patient had more than one episode of twisting of her mouth and lips. Emergency department doctor reported global weakness. ED doctor was not convinced that this was indeed a stroke. At my examination patient had slurred speech and twisting of her mouth and lips. She was crying and complaining of pain at her left jaw. Emergency department doctor was invited to see the patient again at that time. Initially a decision was made to give patient Toradol for her jaw pain. However because patient had received IV contrast it was decided that patient will be given Toradol. It was discussed with patient that she will receive a cold compress for her jaw pain. In no time her slurry speech and twisting of the jaw resolved. While admitted at the the [facility], nurse reported another episode of twisting of patient's mouth and lips; and left jaw pain. 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 Anxiety and depression (Chronic) Chronic back pain (Chronic) Fibromyalgia (Chronic) Obesity (BMI 30.0-34.9) (Chronic) Osteoarthritis (Chronic) Medical History: Medical History (Last Reviewed 05/12/19 @ 02:14 by Moses Cohen MD) correction current use of anticoagulant (Chronic) Z79.01 Atrial fibrillation with RVR (Inactive) I48.91 HTN (hypertension) (Chronic) I10 AVM (arteriovenous malformation) (Chronic) Q27.30 Has 8 of them removed from various locations in her body,: legs, arms, chest, back. Allergies meperidine [From Demerol] Allergy (Verified 05/11/19 19:08) Vomiting Penicillins [PCN] Allergy (Verified 05/11/19 19:08) Unknown adhesive tape Adverse Reaction (Verified 05/11/19 19:08) Hives ciprofloxacin [From Cipro] Adverse Reaction (Verified 05/11/19 19:08) Hives floxacillin Adverse Reaction (Verified 05/11/19 19:08) Vomiting Sulfa (Sulfonamide Antibiotics) Adverse Reaction (Verified 05/11/19 19:08) Rash Home Medications: Ambulatory Orders Medication Instructions Recorded Cholecalciferol (Vitamin D3) 2,000 unit PO DAILY 11/26/18 [Vitamin D3] Cyanocobalamin (Vitamin B-12) 2,000 mcg PO DAILY 11/26/18 [Vitamin B-12] Magnesium Oxide 400 mg PO DAILY 11/26/18 Omeprazole [Prilosec] 40 mg PO DAILY 11/26/18 Polyethylene Glycol 3350 [Miralax] 17 gm PO PRN PRN 11/26/18 Pregabalin [Lyrica] 150 mg PO 4X/DAY 11/26/18 Trospium Chloride [Sanctura] 20 mg PO BID 11/26/18 traZODone [Desyrel] 100 mg PO QHS PRN 11/26/18 duloxetine 60 mg capsule,delayed 60 mg PO BID cap 12/20/18 release Buspirone HCl 5 mg PO TID PRN 05/11/19 Hydrochlorothiazide [Hctz] 25 mg PO DAILY 05/11/19 Metoprolol Succinate 50 mg PO BID 05/11/19 Potassium Chloride [K-Dur] 20 meq PO DAILY 05/11/19 Warfarin Sodium 1 mg PO THFRSA 05/11/19 Warfarin [Coumadin (PBKC)] 2 mg PO SUMOTUWE 05/11/19 Surgical History: - - History of significant right-sided AVMs with resection on the right back, right upper extremity, right axilla, right lower extremity, right chest, bilateral tubal ligation, uterine ablation, tonsillectomy, ex lap from what patient describes lysis of adhesion needs. 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 Paternal Family History: Family History (Last Reviewed 05/12/19 @ 02:14 by Moses Cohen MD) Mother CAD (coronary artery disease) Grandmother CAD (coronary artery disease) Sister Aneurysm Breast cancer History Items: - - Father with a history also of AVMs. Review of Systems Constitutional: Denies: Chills, Fever, Weight Change HEENT: Denies: Head Aches, Sinus Congestion, Sinus Drainage Cardiovascular: Reports: Palpitations. Denies: Chest Pain Respiratory: Denies: Cough, Shortness of breath at rest, Sputum production Gastrointestinal: Denies: Abdominal Pain, Nausea, Vomiting Genitourinary: Denies: Dysuria Musculoskeletal: Denies: Joint Pain, Joint Tenderness Skin: Denies: Rash, Wounds Neurological: Reports: Slurred speech - Intermittent at the emergency department;. Denies: Focal weakness, Numbness, Tingling Psychiatric: Denies: Anxiety, Depression, Homicidal Ideations, Suicidal Ideations Hematologic/ Lymphatic: Denies: Easy Bruising, Easy Bleeding VTE Information - Inpt Only VTE Present on Admission: No VTE Mechan Device Prophylaxis: None VTE Pharm Prophylaxis ordered?: No Reason prophylaxis not ordered:: Treatment Not Indicated - Continue on home Coumadin for A. fib Patient Problems: Active and Suspected Problems (Last Reviewed 05/12/19 @ 00:48 by Moses Cohen MD) Psychosis (Acute) - Physical Exam General: Alert, Oriented x3, Cooperative HEENT: Atraumatic, PERRLA, EOMI, Normocephalic Neck: Supple, No JVD, Negative Carotid Bruits Lungs: Clear to auscultation, Normal air movement Cardiovascular: Regular rate, No murmurs Abdomen: Bowel Sounds Present, Soft, Non Tender Extremities: No edema, Capillary Refill Less than 3 Seconds Skin: No rashes, No breakdown Musculoskeletal: No Tenderness to Palpation of Joints or Extremities Neurological: - - Slow in doing [id number] test and [id number] test. Some decreased strength in left side upper and lower. Intermittent episodes of a twisting of face and lips to the left. Psych/Mental Status: - - Intermittent episodes of crying; psychomotor retardation Vital Signs Temp Pulse Resp BP Pulse Ox 98.5 F 98 16 125/82 H 96 05/11/19 21:45 05/11/19 21:45 05/11/19 21:45 05/11/19 21:45 05/11/19 21:45 Oxygen Delivery Method Room Air Weight: 107.3 kg Body Mass Index (BMI) 37.0 Finger Stick Blood Glucose 92 Intake and Output for Last 24 Hours 05/09/19 05/10/19 05/11/19 23:59 23:59 23:59 Intake Total 1000 / 1000 Balance 1000 / 1000 Laboratory Tests Past 24 Hrs 05/11/19 05/11/19 05/11/19 19:29 19:29 19:29 WBC 8.6 RBC 4.52 Hgb 13.4 Hct 40.6 MCV 89.8 MCH 29.6 MCHC 33.0 RDW Std Deviation 46.9 H RDW Coeff of Prabhu 14.3 Plt Count 337 MPV 9.7 Immature Gran % (Auto) 0.300 Neut % (Auto) 65.2 Lymph % (Auto) 25.0 [place] % (Auto) 7.0 Eos % (Auto) 2.2 Baso % (Auto) 0.3 Absolute Neuts (auto) 5.6 Absolute Lymphs (auto) 2.15 Nucleated RBC % 0 PT 22.6 H INR 2.0 Sodium 141 Potassium 3.5 Chloride 106 Carbon Dioxide 29.0 Anion Gap 6 BUN 9 Creatinine 0.93 Estim Creat Clear Calc 69.59 Est GFR (MDRD) Af Amer 82 Est GFR (MDRD) Non-Af 67 BUN/Creatinine Ratio 9.7 L Glucose 92 Calcium 8.8 Troponin I < 0.015 TSH 05/11/19 19:29 WBC RBC Hgb Hct MCV MCH MCHC RDW Std Deviation RDW Coeff of Prabhu Plt Count MPV Immature Gran % (Auto) Neut % (Auto) Lymph % (Auto) [place] % (Auto) Eos % (Auto) Baso % (Auto) Absolute Neuts (auto) Absolute Lymphs (auto) Nucleated RBC % PT INR Sodium Potassium Chloride Carbon Dioxide Anion Gap BUN Creatinine Estim Creat Clear Calc Est GFR (MDRD) Af Amer Est GFR (MDRD) Non-Af BUN/Creatinine Ratio Glucose Calcium Troponin I TSH 3.81 H Assessment/Plan All Active Problems (Last Reviewed 05/12/19 @ 00:48 by Moses Cohen MD) Psychosis (Acute) The patient is a 53 year old F with a significant history of atrial fibrillation; hypertension; multiple surgeries for AVMs; and fibromyalgia who presented to the emergency department with palpitations; complaint of jaw pain and had episodic slurred speech and twisting of the jaw consistent with likely psychogenic behavior. Psychogenic behavior Behavior is more consistent with psychiatry behavior or pain seeking behavior. CT of head and neck was unremarkable. However with her history of A. fib and AVMs will order MRI of head and neck. We will get an echocardiogram. PT and OT to see patient. We will continue warfarin for now. If MRI shows stroke consider aspirin and statin. Permissive hypertension with labetalol as needed. Hold home blood pressure medications. Atrial fibrillation Patient was sinus tach on presentation and later on went into sinus rhythm with normal rate. Warfarin continued. INR is 2. We will hold metoprolol in the face of ruling out stroke. Hypertension On presentation blood pressure was slightly outside goal. However would hold home hydrochlorthiazide and metoprolol in the face of ruling out stroke. Trend blood pressures. GERD Prilosec continued Fibromyalgia Duloxetine and Lyrica continued Anxiety disorder Buspirone prn continued DVT Prophylaxis Not indicated since patient is therapeutic on warfarin. Warfarin continued Code Visit OBSV E&M: [id number] Initial observation care L2
--- NOTE | 2019-05-11 23:00 | ED.RN ---
RN called to room for jaw clenching again. left side facial droop. hospitalist entered room, then ED physician. ice placed to jaw, it now appears to be loosening.
--- NOTE | 2019-05-11 23:57 | MRI_ITS ---
STUDY: MRI BRAIN WITHOUT CONTRAST REASON FOR EXAM: Female, 53 years old. Slurred speech and left jaw pain. TECHNIQUE: Standardized multiplanar fat and water weighted pulse sequences were obtained. COMPARISON: CT of the brain dated May 11, 2019. FINDINGS: Normal size of the ventricles and extra-axial spaces for the patient's age. Normal white matter tracts of the supratentorial brain. There is no evidence for recent intracranial ischemia or other cause of cytotoxic edema on diffusion weighted imaging (DWI). Normal T2* images of the brain without demonstrated susceptibility artifact. There is no demonstrated hemosiderin stain. Normal bilateral basal ganglia. Normal thalami. There is no extra-axial fluid accumulation. Normal flow voids within the major intracranial circulation suggesting patency by spin echo criteria. Normal sella turcica, pituitary gland, infundibular stalk, optic chiasm and hypothalamus. Normal tectal plate and pineal gland. Normal midbrain, prosper and medulla. Normal cerebellum. Normal basal cisterns. Normal bilateral temporal bones. Normal bilateral internal auditory canals. No demonstrated orbital abnormality, within the constraints of a routine brain study. There is a left maxillary mucous retention cyst. Normal calvarium and skull base. Normal visualized soft tissue structures. Normal visualized upper cervical spine. MRI/Brain without Contrast IMPRESSION: No MR evidence for acute infarct. Electronically Signed: Susana Harley MD at 8:53 EDT , Service support ,
--- NOTE | 2019-05-11 23:57 | ECHOCS_ITS ---
Reason For Study: CVA Procedure This was a 2D Doppler, Color Flow transthoracic echocardiogram. Contrast injection was performed. Exam performed portable in patient room. Left Ventricle Normal LV size. Left ventricular systolic function is normal. The estimated ejection fraction is 65 %. Stage 1 diastolic dysfunction. No regional wall motion abnormalities noted. Right Ventricle Normal RV size. Normal systolic function. Atria Normal left atrium. Normal right atrium. Bubble contrast study negative for right to left interatrial shunt. Mitral Valve Normal mitral valve. Tricuspid Valve Normal tricuspid valve. Aortic Valve Normal aortic valve. Trisinus/trileaflet aortic valve. Pulmonic Valve Normal pulmonic valve. Great Vessels Normal aortic root. The pulmonary artery is normal size. Normal inferior vena cava. Pericardium/Pleural No pericardial effusion. Medication Performed a rapid injection of agitated mix of 9 cc saline and 1cc air to assess for atrial septal defect. Diluted definity 2.5ml given slow IV push to enhance endocardial definition. MMode/2D Measurements & Calculations LVIDd: 4.9 cm IVSd: 1.0 cm Ao root diam: 2.8 cm LVIDs: 3.4 cm LVPWd: 1.1 cm RVDd: 2.9 cm FS: 31.6 % LAV(MOD-bp): 35.4 ml LVAd ap4: 29.5 cm2 SV(MOD-sp4): 54.5 ml LAV(MOD-bp) Indexed: 16.4 ml/m2 EDV(MOD-sp4): 86.7 ml LAV(MOD-sp2): 33.5 ml EDV(sp4-el): 88.1 ml LAV(MOD-sp4): 32.1 ml LVAs ap4: 15.8 cm2 ESV(MOD-sp4): 32.2 ml ESV(sp4-el): 32.0 ml EF(MOD-sp4): 62.9 % EF(sp4-el): 63.6 % SV(sp4-el): 56.0 ml LA A4 area: 14.4 cm2 LA dimension(2D): 3.6 cm RA A4 area: 10.0 cm2 Doppler Measurements & Calculations MV E max grayson: 75.9 cm/sec Lat Peak E' Grayson: 8.8 cm/sec Med Peak E' Grayson: 7.7 cm/sec MV A max grayson: 102.3 cm/sec E/E' lat: 8.6 E/E' med: 9.9 MV E/A: 0.74 Ao V2 max: 131.6 cm/sec LV V1 max: 101.5 cm/sec PA V2 max: 78.2 cm/sec Ao max P.9 mmHg LV V1 max P.1 mmHg Ao V2 mean: 97.7 cm/sec Ao mean P.1 mmHg Ao V2 VTI: 28.5 cm TR max grayson: 212.9 cm/sec TR max P.1 mmHg Interpretation Summary Normal LV size. Left ventricular systolic function is normal. The estimated ejection fraction is 65 %. Stage 1 diastolic dysfunction. Contrast injection was performed. Ordering Physician: Moses Cohen Referring Physician: Fátima Rodriguez Performed By: Joann Russell, JUNIOR, RVT
[2019-05-12] VITALS (15 sets, daily range): BP systolic 110–139; BP diastolic 67–91; PULSE 82–98; RESP 14–17; TEMP 36.4–36.9; O2SAT 21–97
--- NOTE | 2019-05-12 00:25 | NURSING ---
Pt had an episode at this time where she felt pain in her chest that radiated to her left jaw. She then had jaw clenching and left facial droop.
[2019-05-12 09:34] LABS: T4 Free Direct 0.88 ng/dL (0.76-1.46)
[2019-05-12] MEDS: Ibuprofen 400 MG Tablet PO (09:42)
[2019-05-12] MEDS: Magnesium Oxide 400 MG Tablet PO (09:47)
[2019-05-12] MEDS: Pregabalin 75 MG Capsule 150 MG PO ×3 (09:47→18:50)
[2019-05-12] MEDS: Tolterodine Tartrate 2 MG CAP.SA PO (09:47)
[2019-05-12] MEDS: Cyanocobalamin 500 MCG Tablet 2000 MCG PO (09:47)
[2019-05-12] MEDS: Pantoprazole Sodium 40 MG Tablet PO (09:47)
[2019-05-12] MEDS: DULoxetine Hcl 60 MG Capsule PO (09:47)
[2019-05-12] MEDS: tiZANidine HCl 2 MG Tablet PO (12:29)
[2019-05-12] MEDS: Metoprolol(XL)Succ 50 MG Tablet PO (12:39)
--- NOTE | 2019-05-12 15:09 | DCINST_ITS ---
- Discharge Diagnoses Current Active Problems: Current Active and Chronic Problems (Last Reviewed 05/12/19 @ 02:14 by Moses Cohen MD) Psychosis (Acute) You will use the following diet at home:: Cardiac Your food should be the consistency of: Regular Your liquids should be the consistency of: Regular/Thin Discharge Activity: Return to Normal Activity Allergies/Adverse Reactions: Allergies meperidine [From Demerol] Allergy (Verified 05/11/19 19:08) Vomiting Penicillins [PCN] Allergy (Verified 05/11/19 19:08) Unknown adhesive tape Adverse Reaction (Verified 05/11/19 19:08) Hives ciprofloxacin [From Cipro] Adverse Reaction (Verified 05/11/19 19:08) Hives floxacillin Adverse Reaction (Verified 05/11/19 19:08) Vomiting Sulfa (Sulfonamide Antibiotics) Adverse Reaction (Verified 05/11/19 19:08) Rash Medications to take at Discharge Cholecalciferol (Vitamin D3) [Vitamin D3] 2,000 unit PO DAILY 11/26/18 Cyanocobalamin (Vitamin B-12) [Vitamin B-12] 2,000 mcg PO DAILY 11/26/18 Magnesium Oxide 400 mg PO DAILY 11/26/18 Omeprazole [Prilosec] 40 mg PO DAILY 11/26/18 Polyethylene Glycol 3350 [Miralax] 17 gm PO PRN PRN 11/26/18 Pregabalin [Lyrica] 150 mg PO 4X/DAY 11/26/18 Trospium Chloride [Sanctura] 20 mg PO BID 11/26/18 traZODone [Desyrel] 100 mg PO QHS PRN 11/26/18 duloxetine 60 mg capsule,delayed release 60 mg PO BID cap 12/20/18 Hydrochlorothiazide [Hctz] 25 mg PO DAILY 05/11/19 Metoprolol Succinate 50 mg PO BID 05/11/19 Potassium Chloride [K-Dur] 20 meq PO DAILY 05/11/19 Warfarin Sodium 1 mg PO THFRSA 05/11/19 Warfarin [Coumadin] 2 mg PO SUMOTUWE 05/11/19 Buspirone HCl 5 mg PO TID #0 05/12/19 Tizanidine HCl 2 mg PO Q6H PRN PRN 05/12/19 Primary Care Physician: Fátima Rodriguez MD [Primary Care Provider] - Please follow up with your Primary Care Physician in: 1-2 weeks Test Results: Test results from this visit will be discussed in further detail at your follow- up appointment, if applicable. Please Follow Up With: Mil Newton MD When: as directed Proposed Discharge Date: 05/12/19
--- NOTE | 2019-05-12 15:11 | PCM.DC ---
Discharge Activity: Return to Normal Activity Allergies/Adverse Reactions: Allergies meperidine [From Demerol] Allergy (Verified 05/11/19 19:08) Vomiting Penicillins [PCN] Allergy (Verified 05/11/19 19:08) Unknown adhesive tape Adverse Reaction (Verified 05/11/19 19:08) Hives ciprofloxacin [From Cipro] Adverse Reaction (Verified 05/11/19 19:08) Hives floxacillin Adverse Reaction (Verified 05/11/19 19:08) Vomiting Sulfa (Sulfonamide Antibiotics) Adverse Reaction (Verified 05/11/19 19:08) Rash Medications to take at Discharge Cholecalciferol (Vitamin D3) [Vitamin D3] 2,000 unit PO DAILY 11/26/18 Cyanocobalamin (Vitamin B-12) [Vitamin B-12] 2,000 mcg PO DAILY 11/26/18 Magnesium Oxide 400 mg PO DAILY 11/26/18 Omeprazole [Prilosec] 40 mg PO DAILY 11/26/18 Polyethylene Glycol 3350 [Miralax] 17 gm PO PRN PRN 11/26/18 Pregabalin [Lyrica] 150 mg PO 4X/DAY 11/26/18 Trospium Chloride [Sanctura] 20 mg PO BID 11/26/18 traZODone [Desyrel] 100 mg PO QHS PRN 11/26/18 duloxetine 60 mg capsule,delayed release 60 mg PO BID cap 12/20/18 Hydrochlorothiazide [Hctz] 25 mg PO DAILY 05/11/19 Metoprolol Succinate 50 mg PO BID 05/11/19 Potassium Chloride [K-Dur] 20 meq PO DAILY 05/11/19 Warfarin Sodium 1 mg PO THFRSA 05/11/19 Warfarin [Coumadin] 2 mg PO SUMOTUWE 05/11/19 Buspirone HCl 5 mg PO TID #0 05/12/19 Tizanidine HCl 2 mg PO Q6H PRN PRN 05/12/19 Primary Care Physician: Fátima Rodriguez MD [Primary Care Provider] - Please follow up with your Primary Care Physician in: 1-2 weeks Test Results: Test results from this visit will be discussed in further detail at your follow-up appointment, if applicable. Please Follow Up With: Mil Newton MD When: as directed Proposed Discharge Date: 05/12/19
--- NOTE | 2019-05-12 15:12 | DS.PCM_ITS ---
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 Anxiety and depression (Chronic) Chronic back pain (Chronic) Fibromyalgia (Chronic) Obesity (BMI 30.0-34.9) (Chronic) Osteoarthritis (Chronic) Hospital Course and Treatment Imaging Results: RAD/Chest 1 View (Portable) IMPRESSION: Basilar atelectasis. CT/Brain/Head without Contrast IMPRESSION: Normal unenhanced CT scan of the brain. CT/CTA Chest W/WO Contrast IMPRESSION: Normal CTA chest examination, without a demonstrated pulmonary embolism or arterial dissection. MRI/Brain without Contrast IMPRESSION: No MR evidence for acute infarct. Echocardiogram: Normal LV size, normal LV systolic function EF 65%, stage I diastolic dysfunction Operations: None Procedures: 2-D Echocardiogram Summary of Care Provided: Hospital course: The patient is a 53 year old F with pmhx of paroxysmal afib, anxiety, AVMs, obesity, HTN, fibromyalgia, osteoarthritis who presented to the ER with c/o intermittent palpitations, She states that the feeling of racing heart woke her up at rest. She was diagnosed with afib in November of this year after being diagnosed with Afib, started on warfarin and metoprolol. She converted to sinus but since then has had ongoing sensations of palpitations. She had an outpatient 30 day event monitor and there were no findings. After presenting to the ER with this she developed a left neck muscle spasm and she felt that the left side of her face was somewhat contorted. It improved after a cool rag was provided. It recurred twice and the ER physician noted the facial changes and was concerned for stroke. She had a CT brain which was negative. CTA of the chest was negative. She was admitted to PCU and maintained on tele. She remained in sinus rhythm during her stay. She had sinus tachy at presentation. Warfarin remained therapeutic during her stay. MRI of the brain was obtained which was negative. Echo was obtained and was without acute changes. TSH was mildly elevated but T4 was normal. No clear etiology was identified. There is concern that this may be anxiety mediated. Her buspar was changed from PRN to scheduled. She was discharged home in stable condition. She should follow up with her PCP in 1-2 weeks and with her ict support technicians as directed. This patient was seen by Tim Beltran PA-C under the supervision of Doctor Shelia. [] - Physical Exam Vitals/I&O's: Vital Signs Temp Pulse Resp BP Pulse Ox 98.0 F 98 16 120/77 97 05/12/19 13:41 05/12/19 13:41 05/12/19 13:41 05/12/19 13:41 05/12/19 13:41 Oxygen Delivery Method Room Air Weight: 234 lb 2.095 oz Body Mass Index (BMI) 36.6 Finger Stick Blood Glucose 92 Intake and Output for Last 24 Hours 05/10/19 05/11/19 05/12/19 23:59 23:59 23:59 Intake Total 1000 / 1000 260 / 260 Balance 1000 / 1000 260 / 260 General: Alert, Oriented x3, Cooperative HEENT: Atraumatic, PERRLA, EOMI, Normocephalic Neck: Supple, No JVD, Negative Carotid Bruits Lungs: Clear to auscultation, Normal air movement Cardiovascular: Regular rate, No murmurs Abdomen: Bowel Sounds Present, Soft, Non Tender Extremities: No edema, Capillary Refill Less than 3 Seconds Skin: No rashes, No breakdown Musculoskeletal: No Tenderness to Palpation of Joints or Extremities Neurological: Cranial nerves II-XII grossly intact Psych/Mental Status: Appropriate, Anxious, Alert and oriented to time, place, person, mood and affect Laboratory Results 05/11/19 19:29: WBC 8.6, RBC 4.52, Hgb 13.4, Hct 40.6, MCV 89.8, MCH 29.6, MCHC 33.0, RDW Std Deviation 46.9 H, RDW Coeff of Prabhu 14.3, Plt Count 337, MPV 9.7, Immature Gran % (Auto) 0.300, Neut % (Auto) 65.2, Lymph % (Auto) 25.0, Barber % (Auto) 7.0, Eos % (Auto) 2.2, Baso % (Auto) 0.3, Absolute Neuts (auto) 5.6, Absolute Lymphs (auto) 2.15, Nucleated RBC % 0 05/11/19 19:29: PT 22.6 H, INR 2.0 05/11/19 19:29: Sodium 141, Potassium 3.5, Chloride 106, Carbon Dioxide 29.0, Anion Gap 6, BUN 9, Creatinine 0.93, Estim Creat Clear Calc 69.59, Est GFR (MDRD) Af Amer 82, Est GFR (MDRD) Non-Af 67, BUN/Creatinine Ratio 9.7 L, Glucose 92, Calcium 8.8, Troponin I < 0.015 05/11/19 19:29: TSH 3.81 H 05/11/19 19:29: Free T4 0.88 Current Medications Acetaminophen (Tylenol) 650 mg PO Q6H PRN PRN PRN Reason: Pain Score 1-3/Temp > 100.7 F Buspirone HCl (Buspar) 5 mg PO TID PRN PRN PRN Reason: ANXIETY Cholecalciferol (Vitamin D) 2,000 unit PO DAILY [facility] Last Admin: 05/12/19 09:48 Dose: 2,000 unit Documented by: Cyanocobalamin (Vitamin B12) 2,000 mcg PO DAILY [facility] Last Admin: 05/12/19 09:47 Dose: 2,000 mcg Documented by: Dextrose (D50w Syringe) 0 gm IV X1 PRN; Protocol PRN Reason: Hypoglycemia Duloxetine HCl (Cymbalta) 60 mg PO BID [facility] Last Admin: 05/12/19 09:47 Dose: 60 mg Documented by: Glucagon () 1 mg IM .X1 PRN PRN Reason: Hypoglycemia Ibuprofen (Motrin) 400 mg PO Q6H PRN PRN PRN Reason: Pain Score 1-05/01 Last Admin: 05/12/19 09:42 Dose: 400 mg Documented by: Labetalol HCl (Trandate) 10 mg IV Q10M PRN PRN Reason: MAINTAIN BP < 220/120 Stop: 05/12/19 23:58 Magnesium Oxide (Mag-Ox 400) 400 mg PO DAILY [facility] Last Admin: 05/12/19 09:47 Dose: 400 mg Documented by: Metoprolol Succinate (Toprol Xl (Beta Sulema)) 50 mg PO BID [facility] Last Admin: 05/12/19 12:39 Dose: 50 mg Documented by: Ondansetron HCl (Zofran) 4 mg IV Q8H PRN PRN PRN Reason: NAUSEA/VOMITING Pantoprazole Sodium (Protonix) 40 mg PO DAILY [facility] Last Admin: 05/12/19 09:47 Dose: 40 mg Documented by: Polyethylene Glycol (Miralax) 17 gm PO DAILY PRN PRN PRN Reason: Constipation Potassium Chloride (K-Dur) 20 meq PO DAILYCM [facility] Last Admin: 05/12/19 09:46 Dose: 20 meq Documented by: Pregabalin (Lyrica) 150 mg PO 4X/DAY [facility] Last Admin: 05/12/19 14:42 Dose: 150 mg Documented by: Tizanidine HCl (Zanaflex) 2 mg PO Q8H PRN PRN PRN Reason: muscle cramps Last Admin: 05/12/19 12:29 Dose: 2 mg Documented by: Tolterodine Tartrate (Detrol La) 2 mg PO DAILY [facility] Last Admin: 05/12/19 09:47 Dose: 2 mg Documented by: Trazodone HCl (Desyrel) 100 mg PO QHS PRN PRN Reason: INSOMNIA Warfarin Sodium (Coumadin (Pbkc)) 2 mg PO SuMoTuWe@1700 [facility] Last Admin: 05/12/19 01:33 Dose: 2 mg Documented by: Warfarin Sodium (Coumadin (Pbkc)) 1 mg PO ThFrSa@1700 [facility]; Protocol Discharge Diet: Low fat/ Low Cholesterol, 2000 mg Sodium Diet Discharge Activity: Return to Normal Activity Home Medications: Medications to take at Discharge Cholecalciferol (Vitamin D3) [Vitamin D3] 2,000 unit PO DAILY 11/26/18 Cyanocobalamin (Vitamin B-12) [Vitamin B-12] 2,000 mcg PO DAILY 11/26/18 Magnesium Oxide 400 mg PO DAILY 11/26/18 Omeprazole [Prilosec] 40 mg PO DAILY 11/26/18 Polyethylene Glycol 3350 [Miralax] 17 gm PO PRN PRN 11/26/18 Pregabalin [Lyrica] 150 mg PO 4X/DAY 11/26/18 Trospium Chloride [Sanctura] 20 mg PO BID 11/26/18 traZODone [Desyrel] 100 mg PO QHS PRN 11/26/18 duloxetine 60 mg capsule,delayed release 60 mg PO BID cap 12/20/18 Hydrochlorothiazide [Hctz] 25 mg PO DAILY 05/11/19 Metoprolol Succinate 50 mg PO BID 05/11/19 Potassium Chloride [K-Dur] 20 meq PO DAILY 05/11/19 Warfarin Sodium 1 mg PO THFRSA 05/11/19 Warfarin [Coumadin] 2 mg PO SUMOTUWE 05/11/19 Buspirone HCl 5 mg PO TID #0 05/12/19 Tizanidine HCl 2 mg PO Q6H PRN PRN 05/12/19 Primary Care Physician: Fátima Rodriguez MD [Primary Care Provider] - Please follow up with your Primary Care Physician in: 1-2 weeks Please Follow Up With: Mil Newton MD When: as directed Disposition: Home Minutes spent on discharge:: 35 Patient Condition:: Stable Medical Necessity - Tobacco Use Smoking Status: Never smoker Tobacco Use: Non-smoker Meaningful Use Info Meaningful Use Diagnoses (Choose all that apply): None applicable
--- NOTE | 2019-05-12 15:45 | CT_ITS ---
STUDY: CTA HEAD AND NECK WITH CONTRAST REASON FOR EXAM: Female, 53 years old. Facial droop RADIATION DOSAGE (If Supplied By Facility): CTDIvol = ( 27.18 ) mGy, DLP = ( 1500.10 ) mGycm TECHNIQUE: CT angiography was performed with a multi-detector CT scanner. Data acquisition was obtained from the skull base through the vertex following intravenous administration of IV Isovue 300 100mL. MIP images were reconstructed from the axial data set. Post-processing of the angiographic images was performed, with multiplanar reformation and 3D reconstruction. Individualized dose optimization techniques were used for this CT. COMPARISON: No relevant priors. FINDINGS: Normal bilateral petrous carotid arteries. Normal right cavernous carotid artery with a normal supraclinoid bifurcation. Normal left cavernous carotid artery with a normal supraclinoid bifurcation. Normal right A1 segments of the anterior cerebral artery. Normal left A1 segments of the anterior cerebral artery. Normal intact anterior communicating artery (ACOM). Normal bilateral A2 segments of the anterior cerebral arteries. Normal right M1 and M2 segments of the middle cerebral arteries, with a normal M1 bifurcation. Normal left M1 and M2 segments of the middle cerebral arteries, with a normal M1 bifurcation. 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 Normal left posterior communicating artery (PCOM). Normal left vertebral artery. Diffusely hypoplastic right vertebral artery. Normal basilar artery with a normal basilar bifurcation. The visualized bilateral superior cerebellar (SCA) arteries are normal. Normal right posterior cerebral artery. Nonvisualization of proximal segment of the left posterior cerebral artery likely a normal variation. There is no demonstrated aneurysm of the [place] of [place]. There is no demonstrated abnormality of the visualized brain. AORTIC ARCH: Normal visualized aortic arch. Normal origins of the brachiocephalic, left common carotid, and left subclavian arteries. RIGHT CAROTID ARTERIES: Normal right common carotid artery (CCA). Normal right common carotid bulb. Normal origin of the right internal carotid (ICA) artery without a hemodynamically significant stenosis. Normal visualized cervical portion of the right internal carotid artery. Normal origin of the right external carotid artery (ECA). LEFT CAROTID ARTERIES: Normal left common carotid artery (CCA). Normal left common carotid bulb. Normal origin of the left internal carotid (ICA) artery without a hemodynamically significant stenosis. Normal visualized cervical portion of the left internal carotid artery. Normal origin of the left external carotid artery (ECA). VERTEBRAL ARTERIES: Normal bilateral vertebral arteries. 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 Nonvisualization of the proximal segment of the left posterior cerebral artery, likely a normal variation. Electronically Signed: Terry Sawyer DO at 18:36 EDT Tel [phone], Service support ,
--- NOTE | 2019-05-12 20:00 | DS.PCM_ITS ---
Discharge Date and Diagnosis Date of Admission: 05/11/19 - Secondary Discharge Diagnosis Chronic Problems (Last Reviewed 05/12/19 @ 02:14 by Moses Cohen MD) [facility] current use of anticoagulant (Chronic) HTN (hypertension) (Chronic) AVM (arteriovenous malformation) (Chronic) Has 8 of them removed from various locations in her body,: legs, arms, chest, back. Anxiety and depression (Chronic) Chronic back pain (Chronic) Fibromyalgia (Chronic) Obesity (BMI 30.0-34.9) (Chronic) Osteoarthritis (Chronic) Hospital Course and Treatment Imaging Results: 05/12/19 15:45 CTA Head AND Neck W/ Contrast [CT] Urgent Operations: None Summary of Care Provided: The patient is a 53 year old F [] - Physical Exam Vitals/I&O's: Vital Signs Temp Pulse Resp BP Pulse Ox 98.0 F 91 16 120/77 95 05/12/19 13:41 05/12/19 15:00 05/12/19 13:41 05/12/19 13:41 05/12/19 13:41 Oxygen Delivery Method Room Air Weight: 106.2 kg Body Mass Index (BMI) 36.6 Finger Stick Blood Glucose 92 Intake and Output for Last 24 Hours 05/10/19 05/11/19 05/12/19 23:59 23:59 23:59 Intake Total 1000 / 1000 2019 Balance 1000 / 1000 2019 Laboratory Results 05/11/19 19:29: PT 22.6 H, INR 2.0 05/11/19 19:29: Sodium 141, Potassium 3.5, Chloride 106, Carbon Dioxide 29.0, Anion Gap 6, BUN 9, Creatinine 0.93, Estim Creat Clear Calc 69.59, Est GFR (MDRD) Af Amer 82, Est GFR (MDRD) Non-Af 67, BUN/Creatinine Ratio 9.7 L, Glucose 92, Calcium 8.8, Troponin I < 0.015 05/11/19 19:29: TSH 3.81 H 05/11/19 19:29: Free T4 0.88 Discharge Diet: Low fat/ Low Cholesterol, 2000 mg Sodium Diet Discharge Activity: Return to Normal Activity Home Medications: Medications to take at Discharge Cholecalciferol (Vitamin D3) [Vitamin D3] 2,000 unit PO DAILY 11/26/18 Cyanocobalamin (Vitamin B-12) [Vitamin B-12] 2,000 mcg PO DAILY 11/26/18 Magnesium Oxide 400 mg PO DAILY 11/26/18 Omeprazole [Prilosec] 40 mg PO DAILY 11/26/18 Polyethylene Glycol 3350 [Miralax] 17 gm PO PRN PRN 11/26/18 Pregabalin [Lyrica] 150 mg PO 4X/DAY 11/26/18 Trospium Chloride [Sanctura] 20 mg PO BID 11/26/18 traZODone [Desyrel] 100 mg PO QHS PRN 11/26/18 duloxetine 60 mg capsule,delayed release 60 mg PO BID cap 12/20/18 Hydrochlorothiazide [Hctz] 25 mg PO DAILY 05/11/19 Metoprolol Succinate 50 mg PO BID 05/11/19 Potassium Chloride [K-Dur] 20 meq PO DAILY 05/11/19 Warfarin Sodium 1 mg PO THFRSA 05/11/19 Warfarin [Coumadin] 2 mg PO SUMOTUWE 05/11/19 Buspirone HCl 5 mg PO TID #0 05/12/19 Tizanidine HCl 2 mg PO Q6H PRN PRN 05/12/19 Primary Care Physician: Fátima Rodriguez MD [Primary Care Provider] - Please follow up with your Primary Care Physician in: 1-2 weeks Please Follow Up With: Mil Newton MD When: as directed Disposition: Home Medical Necessity - Tobacco Use Smoking Status: Never smoker Tobacco Use: Non-smoker
== END 2019-05-12 19:42 | disposition home or self-care (01) ==
LOC: ED 20:01 → PCU 23:48
PROVIDERS: Physician Assistant; Admitting Provider Hospitalist; Emergency Provider Emergency Medicine; Family Provider Internal Medicine; PCP Internal Medicine; Visit Provider Internal Medicine
DX: I48.0 Paroxysmal atrial fibrillation (principal); R00.2 Palpitations; I10 Essential (primary) hypertension; M79.7 Fibromyalgia; G89.29 Other chronic pain; D68.9 Coagulation defect, unspecified; R07.89 Other chest pain; R00.0 Tachycardia, unspecified; R47.81 Slurred speech; R42 Dizziness and giddiness; R29.810 Facial weakness; Q27.30 Arteriovenous malformation, site unspecified; F41.9 Anxiety disorder, unspecified; E66.9 Obesity, unspecified; F32.9 Major depressive disorder, single episode, unspecified; M19.90 Unspecified osteoarthritis, unspecified site; Z68.36 Body mass index [BMI] 36.0-36.9, adult; Z71.3 Dietary counseling and surveillance; Z79.899 Other long term (current) drug therapy; Z79.01 Long term (current) use of anticoagulants; M62.838 Other muscle spasm
CPT/HCPCS: 70450; 70496; 70498; 70551; 71045; 71275; 80048; 84439; 84443; 84484; 85025; 85610; 92610; 93005; 93306; 94762; 96360; 96361; 97162; 97166; 99218; 99285; J7030; Q9957; Q9967; A4216; C8929; G0378

== ENCOUNTER 2019-06-11 11:31 | Outpatient (RCR) | payer MEDICARE, MEDICAID, SELFPAY ==
[2019-05-11 23:31] VITALS: BMI 36.6
[2019-06-11 12:09] LABS: International Normalized Ratio 1.1; Prothrombin Time (Protime)PT. 14.2 SECONDS (11.7-14.9)
== END 2019-06-11 18:00 | disposition home or self-care (01) ==
LOC: LAB 11:31
PROVIDERS: Family Provider Internal Medicine; PCP Internal Medicine; Referring Provider Internal Medicine Cardiovascular Disease; Visit Provider Internal Medicine Cardiovascular Disease
DX: I48.91 Unspecified atrial fibrillation (principal); Z79.01 Long term (current) use of anticoagulants
CPT/HCPCS: 36415; 85610

== ENCOUNTER 2019-06-26 13:09 | Outpatient (RCR) | payer MEDICARE, MEDICAID, SELFPAY ==
[2019-05-11 23:31] VITALS: BMI 36.6
[2019-06-26 14:33] LABS: International Normalized Ratio 3.1; Prothrombin Time (Protime)PT. 31.8 SECONDS (11.7-14.9)
== END 2019-06-26 18:00 | disposition home or self-care (01) ==
LOC: LAB 13:09
PROVIDERS: Family Provider Internal Medicine; PCP Internal Medicine; Referring Provider Internal Medicine Cardiovascular Disease; Visit Provider Internal Medicine Cardiovascular Disease
DX: I48.91 Unspecified atrial fibrillation (principal); Z79.01 Long term (current) use of anticoagulants
CPT/HCPCS: 36415; 85610

== ENCOUNTER 2019-09-11 20:07 | Emergency (ER) | payer MEDICARE, MEDICAID, SELFPAY ==
[2019-07-10 10:25] VITALS: BMI 36.1
[2019-09-11 20:09] VITALS: BP 147/94; PULSE 90; RESP 20; TEMP 36.7; O2SAT 100; BMI 34.0
--- NOTE | 2019-09-11 20:18 | US_ITS ---
STUDY: ABDOMINAL ULTRASOUND - RIGHT UPPER QUADRANT REASON FOR VISIT: Female, 54 years old RUQ PAIN- radiates to back TECHNIQUE: Ultrasound evaluation of the right upper quadrant was performed with real-time and static forbes-scale imaging. TECHNICAL QUALITY: Adequate. COMPARISON: None. FINDINGS: Liver: The liver measures 15.7 cm. There is normal echogenicity of the liver. The bile ducts are within normal limits. There is hepatic color flow. The direction of portal flow is hepatopetal. There is no demonstrated mass lesion. Gallbladder: Gallbladder is distended with diffuse heterogeneous hyperechoic intraluminal field substance with multiple stones versus complex sludge consideration. The gallbladder wall measures 4 mm. There is a positive sonographic Engle''s sign. There is pericholecystic fluid. Common Bile Duct (C.B.D.): The common bile duct measures mm. Pancreas: Pancreatic head and body are visualized however the tail is incompletely seen. There is normal echogenicity of the pancreas. There is no demonstrated pancreatic mass or cyst. Right Kidney: Normal size of the right kidney. The right kidney measures 11.5 x 5.0 x 4.7 cm. Normal renal cortex. The right cortex measures 1.4 cm. There is no demonstrated renal mass or cyst. There is no right hydronephrosis. US/Gallbladder IMPRESSION: Distended gallbladder with heterogeneous internal material with multiple stones and complex infectious sludge not excluded given pericholecystic fluid or positive Engle sign. Recommend general surgery consultation for further assessment management. Electronically Signed: Vaughn Louise DO at 21:18 EST , Service support ,
--- NOTE | 2019-09-11 20:22 | ED.VIS.GEN ---
History of Present Illness Chief Complaint: Abd Pain Informant: Patient Onset: Yesterday Context: Gradual Onset Timing: Continuous Current Severity: Moderate Maximum Severity: Severe Narrative: The patient presents to the emergency department with abdominal pain. Patient states she was in her normal state of health. She states yesterday, she began to have sharp pain in the midepigastric area and right upper quadrant. She states she is been nauseated without vomiting. Today, the pain is worsened. She states she is never had pain like this before. She has had laparoscopic surgery for fibroids in the past. She denies any other abdominal surgery. The patient does have a history of atrial fibrillation and has been on Coumadin. She denies any fevers or chills. She denies any urinary symptoms. Prior similar symptoms: No Recent Illness/Hospitalization: No Past Medical History - Allergies and Home Meds Allergies/Adverse Reactions: Allergies meperidine [From Demerol] Allergy (Verified 09/11/19 20:12) Vomiting Penicillins [PCN] Allergy (Verified 09/11/19 20:12) Unknown adhesive tape Adverse Reaction (Verified 09/11/19 20:12) Hives ciprofloxacin [From Cipro] Adverse Reaction (Verified 09/11/19 20:12) Hives floxacillin Adverse Reaction (Verified 09/11/19 20:12) Vomiting Sulfa (Sulfonamide Antibiotics) Adverse Reaction (Verified 09/11/19 20:12) Rash Primary Care Physician: Fátima Rodriguez MD [Primary Care Provider] - Prior records reviewed: Yes Past Medical History: - - A. fib Surgical History: - - History of significant right-sided AVMs with resection on the right back, right upper extremity, right axilla, right lower extremity, right chest, bilateral tubal ligation, uterine ablation, tonsillectomy, ex lap from what patient describes lysis of adhesion needs. Smoking Status: Never smoker - Family History Maternal Family History: Family History (Last Reviewed 07/08/19 @ 18:30 by Magdalena Kelly) Mother CAD (coronary artery disease) Grandmother CAD (coronary artery disease) Sister Aneurysm Breast cancer Family History: Reports: - - Patient notes a maternal family history of heart disease, NC, secondary to cardiac NC complications at age 60. Paternal Family History: Family History (Last Reviewed 07/08/19 @ 18:30 by Magdalena Kelly) Mother CAD (coronary artery disease) Grandmother CAD (coronary artery disease) Sister Aneurysm Breast cancer Family History: Reports: - - Father with a history also of AVMs. Review of Systems General: Denies: Chills, Fever, Sweats Eyes: Denies: Visual changes - bilaterally, Diplopia ENT: Denies: Rhinorrhea, Sore throat Cardiovascular: Denies: Chest pain, Palpitations Respiratory: Denies: Dyspnea, Cough, Dyspnea on exertion Gastrointestinal: Reports: Abdominal pain, Nausea. Denies: Vomiting, Diarrhea, Melena, Hematochezia Genitourinary: Denies: Dysuria, Hematuria, Frequency Musculoskeletal: Denies: Back pain, Extremity Pain Skin: Denies: Rash, Wounds Neurological: Denies: Headache, Weakness, Numbness Physical Exam Vital Signs/Narrative: Vital Signs Temp Pulse Resp BP Pulse Ox 09/11/19 20:09 98.1 F 90 20 H 147/94 H 100 Inital Vital Signs reviewed: Yes General: Well nourished, Well developed, No Acute Distress Head: Normocephalic, Atraumatic Eyes: Perrl, EOMI ENT: Moist mucous membranes, No rhinorrhea Neck: Supple, Nontender Cardiovascular: Regular rate, Regular rhythm, No murmurs Respiratory: No distress, CTA bilaterally, Chest nontender Abdomen: Soft, Nondistended, Normal bowel sounds, Tender. Negative for: Guarding, Rebound tenderness Back: Nontender, Normal Inspection Extremities: Nontender, No edema Skin: Normal color, No rash Neurological: Alert, Oriented x3, Cranial nerves II-XII grossly intact, Normal Strength, Normal Sensation Psychological: Normal affect, Normal Mood Diagnostic/Tx/Re-eval Clinical Impression(s) from Imaging Studies Gallbladder Ultrasound 09/11/19 20:18 IMPRESSION: Distended gallbladder with heterogeneous internal material with multiple stones and complex infectious sludge not excluded given pericholecystic fluid or positive Engle sign. Recommend general surgery consultation for further assessment management. Electronically Signed: Vaughn Louise DO at 21:18 EST , Service support , Abnormal Lab Results 09/11/19 09/11/19 09/11/19 20:30 20:30 20:30 WBC 13.3 H RBC 4.41 Hgb 13.1 Hct 38.9 MCV 88.2 MCH 29.7 MCHC 33.7 RDW Std Deviation 44.2 H RDW Coeff of Prabhu 13.7 Plt Count 373 MPV 10.2 Immature Gran % (Auto) 0.500 Neut % (Auto) 81.5 H Lymph % (Auto) 10.7 L [place] % (Auto) 7.1 Eos % (Auto) 0.0 Baso % (Auto) 0.2 Absolute Neuts (auto) 10.9 H Absolute Lymphs (auto) 1.42 Nucleated RBC % 0 PT 46.1 H INR 4.9 H* Sodium 140 Potassium 3.0 L Chloride 105 Carbon Dioxide 26.0 Anion Gap 9 BUN 10 Creatinine 1.04 H Estim Creat Clear Calc 66.13 Est GFR (MDRD) Af Amer 72 Est GFR (MDRD) Non-Af 59 L BUN/Creatinine Ratio 9.6 L Glucose 140 H Lactic Acid Calcium 9.0 Total Bilirubin 1.30 H Direct Bilirubin 0.52 H AST 174 H ALT 158 H Alkaline Phosphatase 167 H Troponin I Total Protein 7.9 Albumin 3.6 Globulin 4.3 H Lipase 128 Blood Type Antibody Screen 09/11/19 09/11/19 09/11/19 20:30 20:55 21:25 WBC RBC Hgb Hct MCV MCH MCHC RDW Std Deviation RDW Coeff of Prabhu Plt Count MPV Immature Gran % (Auto) Neut % (Auto) Lymph % (Auto) [place] % (Auto) Eos % (Auto) Baso % (Auto) Absolute Neuts (auto) Absolute Lymphs (auto) Nucleated RBC % PT INR Sodium Potassium Chloride Carbon Dioxide Anion Gap BUN Creatinine Estim Creat Clear Calc Est GFR (MDRD) Af Amer Est GFR (MDRD) Non-Af BUN/Creatinine Ratio Glucose Lactic Acid 1.2 Calcium Total Bilirubin Direct Bilirubin AST ALT Alkaline Phosphatase Troponin I < 0.015 Total Protein Albumin Globulin Lipase Blood Type A POSITIVE Antibody Screen NEGATIVE - Medical Decision Making The patient presents with right upper quadrant abdominal pain. She does have a history of prior AVMs. She also has atrial fibrillation and is on Coumadin. She was markedly tender in the right upper quadrant. IV was established. She was given analgesics and antiemetics. She did have improvement of her pain. Screening labs were obtained. The patient does have a leukocytosis, mild elevation of her liver functions, and elevation of her bilirubin. Her INR is supratherapeutic at 4.9. The patient underwent ultrasound. This does demonstrate evidence of acute cholecystitis. may be she does have acute EKG changes however. I did discuss her care with Dr. Whitehead brought up. Given her elevated INR and new EKG changes, he did feel that she would best be served with transfer to a tertiary facility. I discussed this with [facility] and with [facility]. Unfortunately, they did not have any beds. The patient was requesting transfer to [facility]. She was accepted and will be transferred. Impression 1. Acute cholecystitis 2. EKG changes ED Disposition - Plan for ED Patient: Referrals: Fátima Rodriguez MD [Primary Care Provider] -
[2019-09-11] MEDS: proMETHazine 25 MG/ML Syringe 12.5 MG IV (20:27)
[2019-09-11] MEDS: morphine 8 MG/ML Syringe IV (20:28)
[2019-09-11] MEDS: 0.9% Normal Saline 1,000 ML 1000 ML IV (20:30)
[2019-09-11 20:43] LABS: Absolute Lymphocyte Count 1.42 X10^3/uL (0.83-4.51); Absolute Neutrophil Count 10.9 X10^3/uL (2.0-7.7); Basophil# 0.02 X10^3/uL; Basophil% 0.2 % (0-1); Hematocrit 38.9 % (37-47); Hemoglobin 13.1 g/dL (12.0-15.0); Lymphocyte # 1.42 X10^3/ul (4.0); Lymphocyte % 10.7 % (19-41); Mean Corp Hgb Conc 33.7 g/dL (32-36); Mean Corpuscular Hgb 29.7 pg (27.0-32.0); Mean Corpuscular Volume 88.2 fL (81-99); Mean Platelet Vol. 10.2 fl (6.2-12.0); Monocyte# 0.94 X10^3/uL; Monocyte% 7.1 % (0-10); NRBC Flagged by Analyzer 0 % (0-5); Neutrophil # 10.86 X10^3/uL (2.7-7.7); Neutrophil % 81.5 % (47-70); Platelet Count 373 K/mm3 (150-450); RBC Distribution Width CV 13.7 % (11.6-14.6); RBC Distribution Width SD 44.2 fl (35.1-43.9); Red Blood Count 4.41 M/mm3 (4.2-5.4); White Blood Count 13.3 K/mm3 (4.4-11.0)
[2019-09-11 20:50] LABS: Prothrombin Time (Protime)PT. 46.1 SECONDS (11.7-14.9)
[2019-09-11 20:55] LABS: International Normalized Ratio 4.9
[2019-09-11 21:00] LABS: AST(SGOT) 174 U/L (15-37); Alanine Aminotransfer ALT/SGPT 158 U/L (13-56); Albumin, Serum 3.6 g/dL (3.2-5.0); Alkaline Phosphatase 167 U/L (45-117); Anion Gap 9 (5-15); BUN 10 mg/dL (7-18); BUN/Creat Ratio 9.6 RATIO (10-20); Bilirubin, Direct 0.52 mg/dL (0.00-0.30); Chloride 105 mmol/L (98-107); Creatinine, Serum 1.04 mg/dL (0.55-1.02); EST Glomerular Filtration Rate 59 mL/min (>60); Est Glom Filt Rate - Afr Amer 72 mL/min (>60); Estimated Creatinine Clearance 66.13 ml/min; Globulin 4.3 g/dL (2.2-4.2); Glucose 140 mg/dL (74-106); Lipase 128 U/L (73-393); Protein, Total 7.9 g/dL (6.4-8.2); Sodium Level 140 mmol/L (136-145)
--- NOTE | 2019-09-11 21:08 | EKG12_ITS ---
Test Reason : ABD PAIN Blood Pressure : / mmHG Vent. Rate : 100 BPM Atrial Rate : 100 BPM P-R Int : 180 ms QRS Dur : 084 ms QT Int : 356 ms P-R-T Axes : 054 008 087 degrees QTc Int : 459 ms Normal sinus rhythm ST & T wave abnormality, consider inferior ischemia ST & T wave abnormality, consider anterolateral ischemia Abnormal ECG Confirmed by BERHANE POWER, SASHA ([id number]), editor managing director REKHA WALDEN ([id number]) on 09/15/2019 2:20:49 PM Referred By: NERI Confirmed By:ANIRUDH LAST MD
[2019-09-11 21:32] LABS: Lactic Acid 1.2 mmol/L (0.4-1.9)
[2019-09-11 22:08] VITALS: BP 138/81; PULSE 78; RESP 16; O2SAT 98
[2019-09-11] MEDS: Potassium Chloride 10mEq/100mL 10 MEQ/100 ML IV.SOLN. 100 MEQ IV BOLUS (22:36)
[2019-09-11] MEDS: Ondansetron 4 MG/2 ML Vial IV (23:05)
[2019-09-11] MEDS: Morphine 4 MG/ML Syringe IV (23:05)
== END 2019-09-11 23:55 | disposition short-term general hospital (02) ==
PROVIDERS: Emergency Provider Emergency Medicine; PCP Internal Medicine
DX: K81.0 Acute cholecystitis (principal); R94.31 Abnormal electrocardiogram [ECG] [EKG]; I48.91 Unspecified atrial fibrillation; Z79.01 Long term (current) use of anticoagulants
CPT/HCPCS: 76705; 80048; 80076; 83605; 83690; 84484; 85025; 85610; 86850; 86900; 86901; 93005; 96361; 96365; 96366; 96375; 96376; 99284; J2185; J7030; J7050; A4216; J2405

== ENCOUNTER 2019-09-29 12:51 | Outpatient (RCR) | payer MEDICARE, MEDICAID, SELFPAY ==
[2019-07-10 10:25] VITALS: BMI 36.1
[2019-09-29 13:51] LABS: International Normalized Ratio 1.2; Prothrombin Time (Protime)PT. 15.3 SECONDS (11.7-14.9)
== END 2019-09-29 18:00 | disposition home or self-care (01) ==
LOC: LAB 12:51
PROVIDERS: Family Provider Internal Medicine; PCP Internal Medicine; Referring Provider Internal Medicine Cardiovascular Disease; Visit Provider Internal Medicine Cardiovascular Disease
DX: I48.91 Unspecified atrial fibrillation (principal); Z79.01 Long term (current) use of anticoagulants
CPT/HCPCS: 36415; 85610

== ENCOUNTER 2019-10-27 10:43 | Outpatient (RCR) | payer MEDICARE, MEDICAID, SELFPAY ==
[2019-10-27 11:38] LABS: International Normalized Ratio 3.4; Prothrombin Time (Protime)PT. 33.7 SECONDS (11.7-14.9)
== END 2019-11-20 18:00 | disposition home or self-care (01) ==
LOC: LAB 10:43
PROVIDERS: Family Provider Internal Medicine; PCP Internal Medicine; Referring Provider Internal Medicine Cardiovascular Disease; Visit Provider Internal Medicine Cardiovascular Disease
DX: I48.91 Unspecified atrial fibrillation (principal); Z79.01 Long term (current) use of anticoagulants
CPT/HCPCS: 36415; 85610

== ENCOUNTER 2019-11-15 10:57 | Inpatient (IN) | payer MEDICARE, MEDICAID, SELFPAY ==
[2019-11-15] VITALS (9 sets, daily range): BP systolic 115–163; BP diastolic 68–101; PULSE 100–114; RESP 17–22; TEMP 36.4–39.5; O2SAT 93–100; BMI 36.0; BMI 35.0; BMI 35.1
--- NOTE | 2019-11-15 11:08 | EKG12_ITS ---
Test Reason : Blood Pressure : / mmHG Vent. Rate : 104 BPM Atrial Rate : 104 BPM P-R Int : 144 ms QRS Dur : 078 ms QT Int : 362 ms P-R-T Axes : 058 045 -18 degrees QTc Int : 476 ms Sinus tachycardia T wave abnormality, consider anterior ischemia Abnormal ECG Confirmed by ENA POWER, NICK ([id number]), desk editor ALBERTO GOULD ([id number] on 11/17/2019 10:00:45 AM Referred By: DARNELL Confirmed By:NICK SUTHERLAND MD
--- NOTE | 2019-11-15 11:22 | ED.VIS.GEN ---
History of Present Illness Chief Complaint: Palpitations Informant: Patient Onset: Days Context: Sudden Onset Timing: Continuous Quality: Palpitations and shortness of breath Location: Chest Current Severity: Mild Maximum Severity: Moderate Worsened by: Activity Relieved by: Nothing Associated Symptoms: Diaphoresis and pleuritic pain Narrative: Patient is a 54-year-old woman with no history coronary disease who is status post cholecystectomy. Cholecystectomy was performed 10 days ago. Surgery was performed at [facility] because of capacity issues at [facility]. Patient presents because of diaphoresis, shortness of breath, pleuritic chest pain, palpitations with heart rate ranging between 110 and 120. She denies leg pain or leg swelling. She denies fever, chills or night sweats. She denies rhinorrhea, postnasal drainage or congestion. She denies sore throat. She denies cough. She denies abdominal pain, nausea, vomiting or diarrhea. States she is on Coumadin for chronic atrial fibrillation. Prior similar symptoms: No Recent Illness/Hospitalization: Yes - Past Medical History (1) senior living current use of anticoagulant Status: Chronic (2) Atrial fibrillation with RVR Status: Inactive (3) HTN (hypertension) Status: Chronic (4) AVM (arteriovenous malformation) Status: Chronic Comment: Has 8 of them removed from various locations in her body,: legs, arms, chest, back. (5) Anxiety and depression Status: Chronic (6) Fibromyalgia Status: Chronic (7) Obesity (BMI 30.0-34.9) Status: Chronic Past Medical History - Allergies and Home Meds Allergies/Adverse Reactions: Allergies meperidine [From Demerol] Allergy (Verified 11/15/19 10:58) Vomiting Penicillins [PCN] Allergy (Verified 11/15/19 10:58) Unknown adhesive tape Adverse Reaction (Verified 11/15/19 10:58) Hives ciprofloxacin [From Cipro] Adverse Reaction (Verified 11/15/19 10:58) Hives floxacillin Adverse Reaction (Verified 11/15/19 10:58) Vomiting Sulfa (Sulfonamide Antibiotics) Adverse Reaction (Verified 11/15/19 10:58) Rash Primary Care Physician: Fátima Rodriguez MD [Primary Care Provider] - Prior records reviewed: Yes Surgical History: cholecystectomy, - - History of significant right-sided AVMs with resection on the right back, right upper extremity, right axilla, right lower extremity, right chest, bilateral tubal ligation, uterine ablation, tonsillectomy, ex lap from what patient describes lysis of adhesion needs. Lives: Alone Smoking Status: Never smoker Alcohol: None Drugs: None - Family History Maternal Family History: Family History (Last Reviewed 07/08/19 @ 18:30 by Magdalena Kelly) Mother CAD (coronary artery disease) Grandmother CAD (coronary artery disease) Sister Aneurysm Breast cancer Family History: Reports: - - Patient notes a maternal family history of heart disease, [place], secondary to cardiac [place] complications at age 60. Paternal Family History: Family History (Last Reviewed 07/08/19 @ 18:30 by Magdalena Kelly) Mother CAD (coronary artery disease) Grandmother CAD (coronary artery disease) Sister Aneurysm Breast cancer Family History: Reports: - - Father with a history also of AVMs. Review of Systems General: Reports: Sweats. Denies: Chills, Fever, Malaise, Subjective, Weight loss Eyes: Denies: Visual changes - bilaterally, Blurred Vision - bilaterally ENT: Denies: Bilateral ear pain, Rhinorrhea, Sore throat Cardiovascular: Reports: Chest pain, Palpitations, Heart racing Respiratory: Reports: Dyspnea, Dyspnea on exertion. Denies: Cough, Orthopnea, Paroxysmal nocturnal dyspnea Gastrointestinal: Denies: Abdominal pain, Nausea, Vomiting, Diarrhea Genitourinary: Denies: Dysuria, Hematuria, Frequency Musculoskeletal: Denies: Myalgias, Arthralgias, Neck pain, Back pain, Swelling, Extremity Pain Skin: Denies: Rash, Wounds Neurological: Denies: Headache, Weakness, Numbness Hematologic: Denies: Easy bruising, Easy bleeding Allergy: Denies: Uticaria, Swelling of the mouth Physical Exam Vital Signs/Narrative: Vital Signs Temp Pulse Resp BP Pulse Ox 11/15/19 10:59 98.5 F 109 H 17 124/71 H 100 Inital Vital Signs reviewed: Yes General: Well nourished, Well developed, Obese, - - Patient does not appear well. Head: Normocephalic, Atraumatic Eyes: Perrl, EOMI. Negative for: Pale conjunctiva, Scleral icterus ENT: Moist mucous membranes, No rhinorrhea Neck: Supple, Nontender, No lymphadenopathy, No JVD Cardiovascular: Regular rhythm, No murmurs, Normal S1, Normal S2, Tachycardia Respiratory: No distress, CTA bilaterally, Chest nontender Abdomen: Soft, Nondistended, Normal bowel sounds, No masses, Tender Back: Nontender, Normal Inspection. Negative for: CVA tenderness Extremities: Nontender, No edema, - - There is no asymmetry, swelling, discoloration, leg vein distention, palpable cords or tenderness along the distribution of the deep venous system. Skin: Normal color, No rash, Diaphoresis, No Trauma. Negative for: Cyanosis, Jaundice Neurological: Alert, Oriented x3, Cranial nerves II-XII grossly intact, Normal Strength, Normal Sensation, Normal Gait Psychological: Normal affect, Normal Mood Diagnostic/Tx/Re-eval - EKG Initial EKG Interpretation: Sinus Tachycardia - Tachycardia with a ventricular rate of 104. ME interval is 144 ms per QRS duration 78 ms. QT duration 362 ms. Dutton is normal. There is T wave inversion anterior leads consistent with ischemia. This is unchanged from September 11, 2019. - Medical Decision Making With history of recent surgery, tachycardia, dyspnea and pleuritic chest pain need to evaluate for pulmonary embolus. Differential also includes of pleurisy, pneumonia, myocarditis, biliary leak. Appropriate labs and images were ordered. Graft call was placed to [facility] regarding patient. Dr. Boswell who is on the surgical team that operated on her felt that she would be fine to have antibiotics here and interventional radiologist place a stent/CT-guided stent. Patient would prefer to stay at [facility] versus transfer to [facility]. Of note patient did have ERCP with placement of stent during her last hospitalization at [facility]. Since patient wishes to stay here and surgeon feels that she does not need surgical intervention and that a CT guided drain could be placed by our radiologist she will be kept here. ED Disposition - Plan for ED Patient: Disposition: Acute Care Hospital [facility] Diagnosis: Gallbladder fossa abscess, Sinus tachycardia seen on diagnostic cardiac sonographer, Sepsis Referrals: Fátima Rodriguez MD [Primary Care Provider] -
[2019-11-15 11:33] LABS: Absolute Lymphocyte Count 1.76 X10^3/uL (0.83-4.51); Absolute Neutrophil Count 7.6 X10^3/uL (2.0-7.7); Basophil# 0.05 X10^3/uL; Basophil% 0.5 % (0-1); Eosinophil# 0.13 X10^3/uL; Eosinophils% 1.3 % (0-5); Hematocrit 33.6 % (37-47); Hemoglobin 10.9 g/dL (12.0-15.0); Lymphocyte # 1.76 X10^3/ul (4.0); Mean Corp Hgb Conc 32.4 g/dL (32-36); Mean Corpuscular Volume 89.4 fL (81-99); Mean Platelet Vol. 9.1 fl (6.2-12.0); Monocyte# 0.77 X10^3/uL; Monocyte% 7.4 % (0-10); NRBC Flagged by Analyzer 0 % (0-5); Neutrophil # 7.57 X10^3/uL (2.7-7.7); Neutrophil % 72.8 % (47-70); Platelet Count 706 K/mm3 (150-450); RBC Distribution Width CV 15.8 % (11.6-14.6); RBC Distribution Width SD 51.8 fl (35.1-43.9); Red Blood Count 3.76 M/mm3 (4.2-5.4); White Blood Count 10.4 K/mm3 (4.4-11.0)
[2019-11-15] MEDS: 0.9% Normal Saline 1,000 ML 1000 ML IV (11:33)
--- NOTE | 2019-11-15 11:44 | CT_ITS ---
STUDY: CTA CHEST REASON FOR EXAM: Female, 54 years old. 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 Post-processing of the angiographic images was performed, with multiplanar reformation and 3D reconstruction. Individualized dose optimization techniques were used for this CT. COMPARISON: 05/11/2019 FINDINGS: There is elevation of the right hemidiaphragm with right basilar atelectasis. There are no pulmonary infiltrates or pleural effusions. There is no pneumothorax. There is no evidence of pulmonary embolus. There is no evidence of thoracic aortic aneurysm or dissection. The heart and pericardium are within normal limits. There is no thoracic lymphadenopathy. Images through the upper abdomen demonstrate fluid and small foci of air in the gallbladder fossa with adjacent stranding. There are no destructive osseous lesions. CT/CTA Chest W/WO Contrast IMPRESSION: No evidence pulmonary embolus. No evidence of thoracic aortic aneurysm or dissection. Elevation of the right hemidiaphragm with right basilar atelectasis. No pulmonary infiltrate or pleural effusions. Fluid and small foci of air in the gallbladder fossa with adjacent stranding. This is suspicious for infection in this patient who is recently status post cholecystectomy. If indicated, a dedicated abdominal CT can be performed. Electronically Signed: Bubba Hernandez, at 12:41 EDT Tel , Service support ,
[2019-11-15 11:45] LABS: D-Dimer Quantitative (DVT/PE) 3.17 FEU/ug/m (0.27-0.49)
[2019-11-15 11:50] LABS: ALB/GLOB Ratio 0.7 RATIO (0.9-2.4); AST(SGOT) 36 U/L (15-37); Alanine Aminotransfer ALT/SGPT 79 U/L (13-56); Albumin, Serum 3.5 g/dL (3.2-5.0); Alkaline Phosphatase 288 U/L (45-117); Anion Gap 8 (5-15); BUN 14 mg/dL (7-18); BUN/Creat Ratio 13.1 RATIO (10-20); Chloride 107 mmol/L (98-107); Creatinine, Serum 1.07 mg/dL (0.55-1.02); EST Glomerular Filtration Rate 57 mL/min (>60); Est Glom Filt Rate - Afr Amer 69 mL/min (>60); Estimated Creatinine Clearance 59.81 ml/min; Globulin 5.2 g/dL (2.2-4.2); Glucose 116 mg/dL (74-106); Potassium 3.8 mmol/L (3.5-5.1); Protein, Total 8.7 g/dL (6.4-8.2); Prothrombin Time (Protime)PT. 13.1 SECONDS (11.7-14.9); Sodium Level 142 mmol/L (136-145)
--- NOTE | 2019-11-15 12:44 | CT_ITS ---
STUDY: CT ABDOMEN WITH AND WITHOUT CONTRAST REASON FOR EXAM: Female, 54 years old. FLUID AND INFLAMMATION GB FOSSA, S/P SAMY 10 DAYS AGO, HAVING PAIN, F/U CTA CHEST, DID 3 PHASE LIVER RADIATION DOSAGE (If Supplied By Facility): CTDIvol = ( 23.27 ) mGy, DLP = ( 2807.68 ) mGycm TECHNIQUE: Transaxial images were obtained pre and post I.V. administration of IV 75mL Isovue-370, and oral contrast. Sagittal and coronal images were reconstructed. Individualized dose optimization techniques were used for this CT. COMPARISON: None. FINDINGS: There is elevation of right hemidiaphragm with right basilar atelectasis. The visualized portions of the heart and pericardium are within normal limits. The patient is status post cholecystectomy. There is a 5.7 x 4.0 x 3.1 cm fluid collection with small foci of air in the gallbladder fossa. This is suspicious for infection. If there is concern for a biloma, consider further evaluation with a nuclear medicine hepatobiliary study. There is a common bile duct stent in place. The proximal end of the stent does not communicate with the fluid collection. The visualized bowel demonstrates no evidence of obstruction. The appendix is normal. The spleen, pancreas, adrenal glands and kidneys are within normal limits. The aorta is normal in caliber. There are no destructive osseous lesions. CT/Abdomen W/WO IV Contrast IMPRESSION: Status post cholecystectomy. 5.7 x 4.0 x 3.1 cm fluid collection with small foci of air in the gallbladder fossa. This is suspicious for infection. If there is concern for a biloma, consider further evaluation with a nuclear medicine hepatobiliary study. Common bile duct stent in place. The proximal end of the stent does not communicate with the fluid collection. Electronically Signed: Bubba Hernandez, at 13:35 EDT Tel , Service support ,
--- NOTE | 2019-11-15 15:31 | HP.PCM_ITS ---
History of Present Illness Date of Admission: 11/15/19 Chief Complaint: Abdominal pain The patient is a 54 year old F with a PMH as below who presents to the hospital with abdominal pain and sensation of tachycardia. She has a history of A. fib so she does check her pulse and noticed that she had been running high for the last couple days. 10 days ago she had her gallbladder taken out at [facility] and had a common bile duct stent put in, that does not communicate with the fluid collection. She states that she had been having issues with her gallbladder since about August. She was very sick at the time and had a cholecystostomy tube initially placed, and then that was removed and 3 weeks later she was supposed to have her gallbladder removed. She now comes in with continued, and worsening right upper quadrant discomfort as well as tachycardia. Initially she thought it was her A. fib acting up however when she presented to the ER today a CT scan was obtained which demonstrated a 5.7 x 4 x 3.7 cm fluid collection in the gallbladder fossa that was suspicious for an infection. She is afebrile and she does not have an elevated white count but she does have a left shift, CT of her chest was also done due to an elevated d-dimer though this is expected given her surgery and continued infection. 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 Anxiety and depression (Chronic) Chronic back pain (Chronic) Fibromyalgia (Chronic) Obesity (BMI 30.0-34.9) (Chronic) Osteoarthritis (Chronic) Medical History: Medical History (Last Reviewed 07/08/19 @ 18:30 by Magdalena Kelly) [employer] current use of anticoagulant (Chronic) Z79.01 Atrial fibrillation with RVR (Inactive) I48.91 HTN (hypertension) (Chronic) I10 AVM (arteriovenous malformation) (Chronic) Q27.30 Has 8 of them removed from various locations in her body,: legs, arms, chest, back. Allergies meperidine [From Demerol] Allergy (Verified 11/15/19 10:58) Vomiting Penicillins [PCN] Allergy (Verified 11/15/19 10:58) Unknown adhesive tape Adverse Reaction (Verified 11/15/19 10:58) Hives ciprofloxacin [From Cipro] Adverse Reaction (Verified 11/15/19 10:58) Hives floxacillin Adverse Reaction (Verified 11/15/19 10:58) Vomiting Sulfa (Sulfonamide Antibiotics) Adverse Reaction (Verified 11/15/19 10:58) Rash Home Medications: Ambulatory Orders Medication Instructions Recorded Magnesium Oxide 400 mg PO DAILY 11/26/18 Omeprazole [Prilosec] 40 mg PO DAILY 11/26/18 Trospium Chloride [Sanctura] 20 mg PO BID 11/26/18 traZODone [Desyrel] 100 mg PO QHS PRN 11/26/18 duloxetine 60 mg capsule,delayed 60 mg PO DAILY cap 12/20/18 release Tizanidine HCl 2 mg PO Q6H PRN PRN 05/12/19 propranolol 80 mg capsule,extended 80 mg PO DAILY #90 cap 08/01/19 release 24 hr warfarin 2 mg tablet 2 mg PO DAILY #90 tab 08/06/19 Gabapentin [Neurontin] 300 mg PO TID 11/15/19 Hydrochlorothiazide [Hctz] 25 mg PO QHS 11/15/19 Surgical History: cholecystectomy, - - History of significant right-sided AVMs with resection on the right back, right upper extremity, right axilla, right lower extremity, right chest, bilateral tubal ligation, uterine ablation, tonsillectomy, ex lap from what patient describes lysis of adhesion needs. 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 Paternal Family History: Family History (Last Reviewed 07/08/19 @ 18:30 by Magdalena Kelly) Mother CAD (coronary artery disease) Grandmother CAD (coronary artery disease) Sister Aneurysm Breast cancer History Items: - - Father with a history also of AVMs. Review of Systems Constitutional: Denies: Chills, Fever, Weight Change HEENT: Denies: Head Aches, Sinus Congestion, Sinus Drainage Cardiovascular: Reports: Palpitations. Denies: Chest Pain, Light Headedness Respiratory: Denies: Cough, Shortness of breath at rest, Sputum production Gastrointestinal: Reports: Abdominal Pain. Denies: Nausea, Vomiting Genitourinary: Denies: Dysuria Musculoskeletal: Denies: Joint Pain, Joint Tenderness Skin: Denies: Rash, Wounds Neurological: Denies: Numbness, Tingling, Focal weakness Psychiatric: Denies: Anxiety, Depression Hematologic/ Lymphatic: Denies: Easy Bruising, Easy Bleeding VTE Information - Inpt Only VTE Present on Admission: No Patient Problems: Active and Suspected Problems (Last Reviewed 07/08/19 @ 18:30 by Magdalena Kelly) Sinus tachycardia seen on box blank machine feeder (Acute) Sepsis (Acute) - Physical Exam Vitals/I&O's: Vital Signs Temp Pulse Resp BP Pulse Ox 98.2 F 104 H 17 125/101 H 99 11/15/19 15:17 11/15/19 15:17 11/15/19 15:17 11/15/19 15:17 11/15/19 15:17 Oxygen Delivery Method Room Air Weight: 230 lb Body Mass Index (BMI) 36.0 Finger Stick Blood Glucose 92 Intake and Output for Last 24 Hours 11/13/19 11/14/19 11/15/19 23:59 23:59 23:59 Intake Total 1000 / 1000 Balance 1000 / 1000 General: Alert, Oriented x3, Cooperative, No apparent distress HEENT: Atraumatic, PERRLA, EOMI, Normocephalic Oral: Moist Mucosa Neck: Supple, No JVD Lungs: Clear to auscultation, Normal air movement, No rhonchi, No wheeze, No rales, Diminished Cardiovascular: Regular Rhythm, Normal S1, Normal S2, No murmurs, Tachycardic Abdomen: Soft, Non Tender, Non-Distended, No Hepato-splenomegaly Extremities: No edema, Capillary Refill Less than 3 Seconds Skin: No rashes, No breakdown Neurological: Neuro grossly intact, Sensory exam intact to light touch and pain Psych/Mental Status: Normal Affect, Appropriate Laboratory Results 11/15/19 11:20: WBC 10.4, RBC 3.76 L, Hgb 10.9 L, Hct 33.6 L, MCV 89.4, MCH 29.0, MCHC 32.4, RDW Std Deviation 51.8 H, RDW Coeff of Prabhu 15.8 H, Plt Count 706 H, MPV 9.1, Immature Gran % (Auto) 1.000 H, Neut % (Auto) 72.8 H, Lymph % (Auto) 17.0 L, Saunders % (Auto) 7.4, Eos % (Auto) 1.3, Baso % (Auto) 0.5, Absolute Neuts (auto) 7.6, Absolute Lymphs (auto) 1.76, Nucleated RBC % 0 11/15/19 11:20: D-Dimer Quant (PE/DVT) 3.17 H* 11/15/19 11:20: Sodium 142, Potassium 3.8, Chloride 107, Carbon Dioxide 27.0, Anion Gap 8, BUN 14, Creatinine 1.07 H, Estim Creat Clear Calc 59.81, Est GFR (MDRD) Af Amer 69, Est GFR (MDRD) Non-Af 57 L, BUN/Creatinine Ratio 13.1, G lucose 116 H, Calcium 10.0, Total Bilirubin 0.40, AST 36, ALT 79 H, Alkaline Phosphatase 288 H, Troponin I < 0.015, Total Protein 8.7 H, Albumin 3.5, Globulin 5.2 H, Albumin/Globulin Ratio 0.7 L 11/15/19 11:20: PT 13.1, INR 1.0 Assessment/Plan All Active Problems (Last Reviewed 07/08/19 @ 18:30 by Magdalena Kelly) Sinus tachycardia seen on box blank machine feeder (Acute) Sepsis (Acute) 1. Postcholecystectomy abscess in the gallbladder fossa -He is allergic to penicillins therefore we will start her on Invanz 1 g daily -We will order a CT-guided drainage of the abscess, may need to have a permanent drain placed -She did not want to go back to [facility] and her surgeon there did not think that it was necessary for her to be transferred there -Afebrile without leukocytosis, her alk phos is elevated compared to what it was in August, but bilirubin is normal -Common bile duct stent is in place not communicating with the abscess -CTA of the chest did not demonstrate a PE 2. A. fib/HTN -She is supposed to be on Coumadin and she is only been taking 1 mg daily and supposed to increase this to 2 mg which is what she normally takes at home starting tomorrow -We will place her on therapeutic Lovenox which we can hold Sunday for the CT-guided biopsy -We will continue with her propranolol but will hold her hydrochlorothiazide given the slight bump in her creatinine -We will let her eat and drink 3. Anxiety/depression -Stable -Continue with Cymbalta and gabapentin -Continue with trazodone and tizanidine 4. GERD -Stable -Continue with PPI DVT: Therapeutic Lovenox Inpatient E&M: 90388 Init Hosp L3
[2019-11-15] MEDS: Acetaminophen 325 MG Tablet 650 MG PO (18:20)
[2019-11-15] MEDS: Enoxaparin 100 MG/ML Syringe SC (18:20)
[2019-11-15] MEDS: Ondansetron 4 MG/2 ML Vial IV (21:22)
[2019-11-15] MEDS: 0.9% Saline Lock 10 ML Syringe IV (21:22)
[2019-11-15] MEDS: Gabapentin 300 MG Capsule PO (22:42)
[2019-11-15] MEDS: traZODone 100 MG Tablet PO (22:50)
[2019-11-16] VITALS (10 sets, daily range): BP systolic 112–127; BP diastolic 68–76; PULSE 85–115; RESP 16–18; TEMP 36.6–36.8; O2SAT 94–97
[2019-11-16 06:32] LABS: Absolute Lymphocyte Count 1.76 X10^3/uL (0.83-4.51); Absolute Neutrophil Count 5.8 X10^3/uL (2.0-7.7); Basophil# 0.04 X10^3/uL; Basophil% 0.5 % (0-1); Eosinophil# 0.15 X10^3/uL; Eosinophils% 1.8 % (0-5); Hemoglobin 9.5 g/dL (12.0-15.0); Lymphocyte # 1.76 X10^3/ul (4.0); Mean Corp Hgb Conc 32.8 g/dL (32-36); Mean Corpuscular Hgb 29.4 pg (27.0-32.0); Mean Corpuscular Volume 89.8 fL (81-99); Mean Platelet Vol. 9.2 fl (6.2-12.0); Monocyte# 0.62 X10^3/uL; Monocyte% 7.4 % (0-10); NRBC Flagged by Analyzer 0 % (0-5); Neutrophil # 5.75 X10^3/uL (2.7-7.7); Neutrophil % 68.6 % (47-70); Platelet Count 562 K/mm3 (150-450); RBC Distribution Width CV 16.1 % (11.6-14.6); RBC Distribution Width SD 52.9 fl (35.1-43.9); Red Blood Count 3.23 M/mm3 (4.2-5.4); White Blood Count 8.4 K/mm3 (4.4-11.0)
[2019-11-16 06:41] LABS: Anion Gap 8 (5-15); BUN 13 mg/dL (7-18); BUN/Creat Ratio 13.8 RATIO (10-20); Calcium,Total 8.9 mg/dL (8.5-10.1); Chloride 108 mmol/L (98-107); Creatinine, Serum 0.94 mg/dL (0.55-1.02); EST Glomerular Filtration Rate 66 mL/min (>60); Est Glom Filt Rate - Afr Amer 80 mL/min (>60); Estimated Creatinine Clearance 68.08 ml/min; Glucose 117 mg/dL (74-106); Potassium 3.7 mmol/L (3.5-5.1); Sodium Level 140 mmol/L (136-145)
[2019-11-16] MEDS: Gabapentin 300 MG Capsule PO ×3 (06:51→21:45)
[2019-11-16] MEDS: Enoxaparin 100 MG/ML Syringe SC ×2 (06:51→18:05)
--- NOTE | 2019-11-16 08:50 | PCM.PN.HOSP ---
Patient Problems: Active and Suspected Problems (Last Reviewed 07/08/19 @ 18:30 by Magdalena Kelly) Sinus tachycardia seen on environmental monitoring technician (Acute) Sepsis (Acute) Subjective: Feeling better, no issues overnight Vitals/I&O's: Vital Signs Temp Pulse Resp BP Pulse Ox 98.2 F 110 H 16 115/76 94 11/16/19 03:17 11/16/19 06:29 11/16/19 03:17 11/16/19 03:17 11/16/19 03:17 Oxygen Delivery Method Room Air Weight: 224 lb Body Mass Index (BMI) 35.0 Finger Stick Blood Glucose 92 Intake and Output for Last 24 Hours 11/14/19 11/15/19 11/16/19 23:59 23:59 23:59 Intake Total 1731.75 / 1731.75 250 / 250 Balance 1731.75 / 1731.75 250 / 250 General: Alert, Oriented x3, Cooperative, No apparent distress HEENT: Atraumatic, PERRLA, EOMI, Normocephalic Oral: Moist Mucosa Neck: Supple, No JVD Lungs: Clear to auscultation, Normal air movement, No rhonchi, No wheeze, No rales, Diminished Cardiovascular: Regular Rhythm, Normal S1, Normal S2, No murmurs, Tachycardic Abdomen: Soft, Non Tender, Non-Distended, No Hepato-splenomegaly Extremities: No edema, Capillary Refill Less than 3 Seconds Skin: No rashes, No breakdown Neurological: Neuro grossly intact, Sensory exam intact to light touch and pain Psych/Mental Status: Normal Affect, Appropriate Laboratory Results 11/15/19 11:20: WBC 10.4, RBC 3.76 L, Hgb 10.9 L, Hct 33.6 L, MCV 89.4, MCH 29.0, MCHC 32.4, RDW Std Deviation 51.8 H, RDW Coeff of Prabhu 15.8 H, Plt Count 706 H, MPV 9.1, Immature Gran % (Auto) 1.000 H, Neut % (Auto) 72.8 H, Lymph % (Auto) 17.0 L, Barnwell % (Auto) 7.4, Eos % (Auto) 1.3, Baso % (Auto) 0.5, Absolute Neuts (auto) 7.6, Absolute Lymphs (auto) 1.76, Nucleated RBC % 0 11/15/19 11:20: D-Dimer Quant (PE/DVT) 3.17 H* 11/15/19 11:20: Sodium 142, Potassium 3.8, Chloride 107, Carbon Dioxide 27.0, Anion Gap 8, BUN 14, Creatinine 1.07 H, Estim Creat Clear Calc 59.81, Est GFR (MDRD) Af Amer 69, Est GFR (MDRD) Non-Af 57 L, BUN/Creatinine Ratio 13.1, Glucose 116 H, Calcium 10.0, Total Bilirubin 0.40, AST 36, ALT 79 H, Alkaline Phosphatase 288 H, Troponin I < 0.015, Total Protein 8.7 H, Albumin 3.5, Globulin 5.2 H, Albumin/Globulin Ratio 0.7 L 11/15/19 11:20: PT 13.1, INR 1.0 11/16/19 06:02: Sodium 140, Potassium 3.7, Chloride 108 H, Carbon Dioxide 24.0, Anion Gap 8, BUN 13, Creatinine 0.94, Estim Creat Clear Calc 68.08, Est GFR (MDRD) Af Amer 80, Est GFR (MDRD) Non-Af 66, BUN/Creatinine Ratio 13.8, Glucose 117 H, Calcium 8.9 11/16/19 06:02: WBC 8.4, RBC 3.23 L, Hgb 9.5 L, Hct 29.0 L, MCV 89.8, MCH 29.4, MCHC 32.8, RDW Std Deviation 52.9 H, RDW Coeff of Prabhu 16.1 H, Plt Count 562 H, MPV 9.2, Immature Gran % (Auto) 0.700, Neut % (Auto) 68.6, Lymph % (Auto) 21.0, Barnwell % (Auto) 7.4, Eos % (Auto) 1.8, Baso % (Auto) 0.5, Absolute Neuts (auto) 5.8, Absolute Lymphs (auto) 1.76, Nucleated RBC % 0 Current Medications Acetaminophen (Tylenol) 650 mg PO Q6H PRN PRN PRN Reason: Pain Score 1-10/Temp > 100.7 F Last Admin: 11/15/19 18:20 Dose: 650 mg Documented by: Duloxetine HCl (Cymbalta) 60 mg PO DAILY HUYEN Enoxaparin Sodium (Lovenox) 100 mg SC Q12@0600,1800 [facility] Last Admin: 11/16/19 06:51 Dose: 100 mg Documented by: Gabapentin (Neurontin) 300 mg PO TID [facility] Last Admin: 11/16/19 06:51 Dose: 300 mg Documented by: Ertapenem 1 gm/ Sodium (Chloride) 60 mls @ 100 mls/hr IV Q24 [facility] Last Infusion: 11/15/19 18:56 Dose: Infused Documented by: Sodium Chloride () 250 mls @ 15 mls/hr IV .[id number] PRN PRN Reason: Saline Flush Sodium Chloride () 250 mls @ 15 mls/hr IV .[id number] PRN PRN Reason: Additional IVPB Infusion Ondansetron HCl (Zofran) 4 mg IV Q8H PRN PRN PRN Reason: NAUSEA/VOMITING Last Admin: 11/15/19 21:22 Dose: 4 mg Documented by: Pantoprazole Sodium (Protonix) 40 mg PO DAILY [facility] Propranolol HCl (Inderal La) 80 mg PO DAILY [facility] Sodium Chloride () 10 - 40 ml IV UD PRN PRN Reason: SALINE FLUSH Last Admin: 11/15/19 21:22 Dose: 10 ml Documented by: Tizanidine HCl (Zanaflex) 2 mg PO Q6H PRN PRN PRN Reason: muscle cramps Trazodone HCl (Desyrel) 100 mg PO QHS PRN PRN Reason: INSOMNIA Last Admin: 11/15/19 22:50 Dose: 100 mg Documented by: STROKE Vital Signs/Narrative: Vital Signs Pulse 11/16/19 06:29 110 H Medical Necessity - Tobacco Use Smoking Status: Never smoker Assessment/Plan All Active Problems (Last Reviewed 07/08/19 @ 18:30 by Magdalena Kelly) Sinus tachycardia seen on environmental monitoring technician (Acute) Sepsis (Acute) 1. Postcholecystectomy abscess in the gallbladder fossa -He is allergic to penicillins therefore we will start her on Invanz 1 g daily -CT-guided drainage of the abscess on Sunday, last dose of therapeutic Lovenox will be tonight at 6 PM and PT/INR and PTT have been ordered tomorrow morning -She did not want to go back to [facility] and her surgeon there did not think that it was necessary for her to be transferred there -Afebrile without leukocytosis, her alk phos is elevated compared to what it was in August, but bilirubin is normal -Common bile duct stent is in place not communicating with the abscess -CTA of the chest did not demonstrate a PE 2. A. fib/HTN -She is supposed to be on Coumadin and she is only been taking 1 mg daily and supposed to increase this to 2 mg which is what she normally takes at home starting today -We will place her on therapeutic Lovenox which we can hold prior to CT-guided biopsy -We will continue with her propranolol but will hold her hydrochlorothiazide given the slight bump in her creatinine -We will let her eat and drink 3. Anxiety/depression -Stable -Continue with Cymbalta and gabapentin -Continue with trazodone and tizanidine 4. GERD -Stable -Continue with PPI DVT: Therapeutic Lovenox Inpatient E&M: 13977 [facility] L2
[2019-11-16] MEDS: DULoxetine Hcl 60 MG Capsule PO (09:17)
[2019-11-16] MEDS: Propranolol LA 80 MG Capsule PO (09:17)
[2019-11-16] MEDS: Pantoprazole Sodium 40 MG Tablet PO (09:17)
[2019-11-16] MEDS: Ondansetron 4 MG/2 ML Vial IV (20:31)
[2019-11-16] MEDS: 0.9% Saline Lock 10 ML Syringe IV (20:31)
[2019-11-16] MEDS: Acetaminophen 325 MG Tablet 650 MG PO (20:34)
[2019-11-16] MEDS: traZODone 100 MG Tablet PO (21:45)
[2019-11-17] VITALS (18 sets, daily range): BP systolic 101–125; BP diastolic 52–80; PULSE 76–104; RESP 13–20; TEMP 36.6–36.9; O2SAT 95–99
--- NOTE | 2019-11-17 | FLU_PTH ---
PATIENT: REINALDO CELAYA LOC: MS3 U#:[id number] AGE/SX: 54/F ROOM: MS312 RE11/15/[address]: Dr. Wander Mullins MD : [id number] BED: 1 DIS: 11/18/2019 SPEC #: [id number] RECD: 11/17/19 11:54 STATUS: XOCHITL REMarciano #: [id number] CÉSAR: 11/17/19 00:[address]: Wander Mullins DEPT: CYTOLOGY RECD BY: Scott Leyva ENTERED: 11/18/19 11:58 SP TYPE: Fluid OTHR DR: Dr. Fátima Rodriguez MD Tissues: Gallbladder, NOS Procedures: Special Stain Group II Surgery Specimen Level IV Cytospin Fluid HEADER OPERATION: CT-guided gallbladder drainage PRE-OP DIAGNOSIS: Postcholecystectomy abscess TISSUE SUBMITTED: Gallbladder fossa fluid for cytology DIAGNOSIS CYTOLOGY Gallbladder, fossa fluid (cytospin and cell block): Negative for malignant cells. Acute and chronic inflammation. See comment. ISABELLA:dimitrios 11/19/19 COMMENT Correlation with clinical findings and appropriate follow up are necessary. CYTOLOGY STUDY Slides are reviewed. CYTOLOGY GROSS Received is 25 ml of red, turbid fluid labeled with the patient's name and and designated per the requisition as gallbladder fossa. Submitted for cytology preparation including cell block. / dimitrios 11/18/19 TC:2 CPT: 73846, 65291
[2019-11-17] MEDS: Gabapentin 300 MG Capsule PO ×3 (05:48→21:36)
[2019-11-17 07:24] LABS: Absolute Lymphocyte Count 1.54 X10^3/uL (0.83-4.51); Absolute Neutrophil Count 4.3 X10^3/uL (2.0-7.7); Basophil# 0.03 X10^3/uL; Basophil% 0.4 % (0-1); Eosinophil# 0.24 X10^3/uL; Eosinophils% 3.6 % (0-5); Hematocrit 27.5 % (37-47); Hemoglobin 8.8 g/dL (12.0-15.0); Lymphocyte # 1.54 X10^3/ul (4.0); Lymphocyte % 22.8 % (19-41); Mean Corpuscular Hgb 28.8 pg (27.0-32.0); Mean Corpuscular Volume 89.9 fL (81-99); Mean Platelet Vol. 9.2 fl (6.2-12.0); Monocyte# 0.54 X10^3/uL; NRBC Flagged by Analyzer 0 % (0-5); Neutrophil # 4.34 X10^3/uL (2.7-7.7); Neutrophil % 64.2 % (47-70); Platelet Count 522 K/mm3 (150-450); RBC Distribution Width CV 15.9 % (11.6-14.6); RBC Distribution Width SD 51.9 fl (35.1-43.9); Red Blood Count 3.06 M/mm3 (4.2-5.4); White Blood Count 6.8 K/mm3 (4.4-11.0)
[2019-11-17 08:11] LABS: Anion Gap 6 (5-15); BUN 14 mg/dL (7-18); BUN/Creat Ratio 15.5 RATIO (10-20); Calcium,Total 9.2 mg/dL (8.5-10.1); Chloride 110 mmol/L (98-107); EST Glomerular Filtration Rate 69 mL/min (>60); Est Glom Filt Rate - Afr Amer 84 mL/min (>60); Estimated Creatinine Clearance 71.11 ml/min; Glucose 112 mg/dL (74-106); Potassium 3.6 mmol/L (3.5-5.1); Sodium Level 142 mmol/L (136-145)
[2019-11-17 08:20] LABS: International Normalized Ratio 1.1; Prothrombin Time (Protime)PT. 13.2 SECONDS (11.7-14.9)
[2019-11-17 08:21] LABS: Partial Thromboplast Time 38.6 Seconds (24.1-36.2)
[2019-11-17] MEDS: 0.9% Saline Lock 10 ML Syringe IV ×3 (08:36→18:17)
[2019-11-17] MEDS: Ondansetron 4 MG/2 ML Vial IV (08:36)
--- NOTE | 2019-11-17 09:00 | CT_ITS ---
PROCEDURE: CT DIRECTED ABSCESS DRAINAGE, PERITONEAL DATE OF EXAMINATION: November 17, 2019 INDICATION: Female, 54 years old. Fluid collection in the gallbladder fossa following cholecystectomy. PHYSICIAN: Sukumar Robb M.D. CONSENT: Written informed consent was obtained having explained the risks, benefits and alternatives in detail with the patient who accepted the risks and agreed to proceed. Laboratory review and clinical assessment was performed. CONSCIOUS SEDATION PROTOCOL: The Drugs used were: 2 mg Versed, IV., and 75 mcg Fentanyl, IV. The sedation time was: 26 minutes. Conscious sedation was started at 9:19 AM and terminate at 9:45 AM The conscious sedation protocol was independently monitored. RADIATION DOSAGE (If Supplied By Facility): CTDIvol = ( 15.5 ) mGy, DLP = ( 302.6 ) mGycm TECHNIQUE: CT sections were made through the abdomen and pelvis revealing an abscess in the gallbladder fossa. The skin surface was prepped and draped in a sterile fashion. Puncture of this collection was performed initially with a 5 Maltese catheter and fluid was aspirated. Drainage catheter was then inserted into the collection and formed into position. Additional fluid was aspirated for a total of approximately 30 cc of cloudy red fluid. The catheter was sutured into position to allow for continued drainage. Followup CT sections reveals good position of the catheter. CT/Abscess/Fistula/Sinus Tract IMPRESSION: 1. CT directed drainage of a fluid collection using CT image guidance and image documentation as described. 2. Conscious Sedation protocol utilized with independent monitoring Electronically Signed: Sukumar Robb, at 10:33 EDT , Service support ,
[2019-11-17] MEDS: Midazolam 2 MG/2 ML Syringe IV (09:19)
[2019-11-17] MEDS: fentaNYL 100 MCG/2 ML Ampul IV ×2 (09:22→09:34)
--- NOTE | 2019-11-17 09:29 | PN_ITS ---
Patient Problems: Active and Suspected Problems (Last Reviewed 07/08/19 @ 18:30 by Magdalena Kelly) Sinus tachycardia seen on teletypesetter monitor (Acute) Sepsis (Acute) Subjective: Doing well, no issues overnight. Vitals/I&O's: Vital Signs Temp Pulse Resp BP Pulse Ox 98.3 F 76 18 104/65 96 11/17/19 08:21 11/17/19 08:21 11/17/19 08:21 11/17/19 08:21 11/17/19 08:21 Oxygen Delivery Method Room Air Weight: 224 lb Body Mass Index (BMI) 35.0 Finger Stick Blood Glucose 92 Intake and Output for Last 24 Hours 11/15/19 11/16/19 11/17/19 23:59 23:59 23:59 Intake Total 1731.75 / 1731.75 910 / 1332 522 / 522 Output Total 800 / 1100 300 / 300 Balance 1731.75 / 1731.75 110 / 232 222 / 222 General: Alert, Oriented x3, Cooperative, No apparent distress HEENT: Atraumatic, PERRLA, EOMI, Normocephalic Oral: Moist Mucosa Neck: Supple, No JVD Lungs: Clear to auscultation, Normal air movement, No rhonchi, No wheeze, No rales, Diminished Cardiovascular: Regular rate and rhythm, Normal S1, Normal S2, No murmurs Abdomen: Soft, Non Tender, Non-Distended, No Hepato-splenomegaly Extremities: No edema, Capillary Refill Less than 3 Seconds Skin: No rashes, No breakdown Neurological: Neuro grossly intact, Sensory exam intact to light touch and pain Psych/Mental Status: Normal Affect, Appropriate Laboratory Results 11/17/19 06:47: WBC 6.8, RBC 3.06 L, Hgb 8.8 L, Hct 27.5 L, MCV 89.9, MCH 28.8, MCHC 32.0, RDW Std Deviation 51.9 H, RDW Coeff of Prabhu 15.9 H, Plt Count 522 H, MPV 9.2, Immature Gran % (Auto) 1.000 H, Neut % (Auto) 64.2, Lymph % (Auto) 22.8, Stone % (Auto) 8.0, Eos % (Auto) 3.6, Baso % (Auto) 0.4, Absolute Neuts (auto) 4.3, Absolute Lymphs (auto) 1.54, Nucleated RBC % 0 11/17/19 06:47: PT 13.2, INR 1.1, APTT 38.6 H 11/17/19 06:47: Sodium 142, Potassium 3.6, Chloride 110 H, Carbon Dioxide 26.0, Anion Gap 6, BUN 14, Creatinine 0.90, Estim Creat Clear Calc 71.11, Est GFR (MDRD) Af Amer 84, Est GFR (MDRD) Non-Af 69, BUN/Creatinine Ratio 15.5, Glucose 112 H, Calcium 9.2 Current Medications Acetaminophen (Tylenol) 650 mg PO Q6H PRN PRN PRN Reason: Pain Score 1-10/Temp > 100.7 F Last Admin: 11/16/19 20:34 Dose: 650 mg Documented by: Duloxetine HCl (Cymbalta) 60 mg PO DAILY [facility] Last Admin: 11/16/19 09:17 Dose: 60 mg Documented by: Enoxaparin Sodium (Lovenox) 100 mg SC Q12@0600,1800 [facility] Last Admin: 11/16/19 20:21 Dose: Not Given Documented by: Fentanyl Citrate (Sublimaze (100mcg Ampule)) 25 - 50 mcg IV UD PRN PRN Reason: Procedural Pain Control Stop: 11/17/19 23:59 Last Admin: 11/17/19 09:22 Dose: 50 mcg Documented by: Gabapentin (Neurontin) 300 mg PO TID [facility] Last Admin: 11/17/19 05:48 Dose: 300 mg Documented by: Ertapenem 1 gm/ Sodium (Chloride) 60 mls @ 100 mls/hr IV Q24 [facility] Last Infusion: 11/16/19 10:30 Dose: Infused Documented by: Sodium Chloride () 250 mls @ 15 mls/hr IV .[id number] PRN PRN Reason: Saline Flush Sodium Chloride () 250 mls @ 15 mls/hr IV .[id number] PRN PRN Reason: Additional IVPB Infusion Sodium Chloride () 500 mls @ 0 mls/hr IV .Q0M [facility] Stop: 11/17/19 23:59 Last Admin: 11/17/19 08:37 Dose: 15 mls/hr Documented by: Midazolam HCl (Versed) 1 - 2 mg IV UD PRN PRN Reason: Procedural Sedation Stop: 11/17/19 23:59 Last Admin: 11/17/19 09:19 Dose: 2 mg Documented by: Ondansetron HCl (Zofran) 4 mg IV Q8H PRN PRN PRN Reason: NAUSEA/VOMITING Last Admin: 11/17/19 08:36 Dose: 4 mg Documented by: Pantoprazole Sodium (Protonix) 40 mg PO DAILY HUYEN Last Admin: 11/16/19 09:17 Dose: 40 mg Documented by: Propranolol HCl (Inderal La) 80 mg PO DAILY@2200 [facility] Sodium Chloride () 10 - 40 ml IV UD PRN PRN Reason: SALINE FLUSH Last Admin: 11/17/19 08:36 Dose: 10 ml Documented by: Tizanidine HCl (Zanaflex) 2 mg PO Q6H PRN PRN PRN Reason: muscle cramps Trazodone HCl (Desyrel) 100 mg PO QHS PRN PRN Reason: INSOMNIA Last Admin: 11/16/19 21:45 Dose: 100 mg Documented by: STROKE Vital Signs/Narrative: Vital Signs Temp Pulse Resp BP Pulse Ox 11/17/19 08:21 98.3 F 76 18 104/65 96 Medical Necessity - Tobacco Use Smoking Status: Never smoker Assessment/Plan All Active Problems (Last Reviewed 07/08/19 @ 18:30 by Magdalena Kelly) Sinus tachycardia seen on teletypesetter monitor (Acute) Sepsis (Acute) 1. Postcholecystectomy abscess in the gallbladder fossa -He is allergic to penicillins therefore we will start her on Invanz 1 g daily -CT-guided drainage of the abscess today, INR 1.3 with a PTT of 38.6, once drained can likely discontinue antibiotics after 24 hours -She did not want to go back to [facility] and her surgeon there did not think that it was necessary for her to be transferred there -Afebrile without leukocytosis, her alk phos is elevated compared to what it was in August, but bilirubin is normal -Common bile duct stent is in place not communicating with the abscess -CTA of the chest did not demonstrate a PE 2. A. fib/HTN -She is supposed to be on Coumadin and she is only been taking 1 mg daily and supposed to increase this to 2 mg which is what she normally takes at home starting today -We will place her on therapeutic Lovenox which we can hold prior to CT-guided biopsy -We will continue with her propranolol but will hold her hydrochlorothiazide given the slight bump in her creatinine -We will let her eat and drink 3. Anxiety/depression -Stable -Continue with Cymbalta and gabapentin -Continue with trazodone and tizanidine 4. GERD -Stable -Continue with PPI DVT: Therapeutic Lovenox Inpatient E&M: 12418 Subs Hosp L2
[2019-11-17] MEDS: Pantoprazole Sodium 40 MG Tablet PO (10:31)
[2019-11-17] MEDS: DULoxetine Hcl 60 MG Capsule PO (10:31)
[2019-11-17] MEDS: Acetaminophen 325 MG Tablet 650 MG PO ×2 (10:31→21:36)
--- NOTE | 2019-11-17 11:00 | CASEMGMT ---
RN CM Face to Face with patient for initial transition planning/care coordination assessment. RN CM introduced self and role at [facility]. Patient lying in bed, alert and oriented. Patient willing to participate in assessment and is able to answer all questions appropriately. Care providers, pharmacy, and demographics verified. Patient wishes to discharge home, denies need for home health at this time. Patient states she has no further needs or concerns at this time. CM to follow for discharge planning needs that may arise. PCP: Jennifer Specialists: Aman, soil tester; Pasquale, neurologist [facility] Preferred Pharmacy: [facility]; [facility] Retail at discharge Insurance: INESSA Ramos Prescription Benefit: yes Living Will/HPOA: none, would like to complete here at hospital. LNOK: rico jo Living Arrangements: Patient lives with sandro in 2 story home with bed and bath on first floor. Patient states she is independent at home. Transportation: self/fiance DME/HHC: Patient states she has cane and knee brace at home. Patient denied need for HHC or additional DME. Disposition Plan: Patient to discharge home with family support and follow-up plans in place. Ratna ALFARO, RN, CM
[2019-11-17] MEDS: Ibuprofen 400 MG Tablet PO (11:30)
--- NOTE | 2019-11-17 14:01 | CASEMGMT ---
Social Work SW met with pt to discuss advance directives. SW explained Health Care Power of Umbrella Supervisor, Living Will and DNR at length with pt and all questions answered. Pt would like to read over documents and speak with her family this evening and would like SW to see pt again tomorrow to assist with completing documents. JAI Andersen notified and requested to follow up with pt tomorrow. JAI Chakraborty
--- NOTE | 2019-11-17 14:24 | CHAPLAIN ---
Type of Pastoral Visit _x__ Initial Visit ___ Follow-up Visit ___ On-call Visit ___ General Patient Visit ___ Spiritual Assessment ___ Family Conference ___ Bereavement ___ Rapid Response ___ Code Blue ___ Other (describe below) Pastoral Care Referral From _x__ Patient ___ Family ___ Nurse ___ Physician ___ Oil Boiler ___ Patients Transporter ___ Other (describe below) Sacrament/Intervention _x__ Active listening ___ Anointing ___ Restorationist ___ Bereavement ___ Communion _x__ Obdulia exploration ___ _x__ Life review _x__ Prayer ___ Reconciliation ___ Sacrament of Sick _x__ Supportive presence ___ Wedding ___ Other (describe below) Pastoral Comments
[2019-11-17] MEDS: Ketorolac 30 MG/ML Syringe IV (18:17)
[2019-11-17] MEDS: tiZANidine HCl 2 MG Tablet PO (18:17)
[2019-11-17] MEDS: Enoxaparin 100 MG/ML Syringe SC (18:18)
[2019-11-17] MEDS: Propranolol LA 80 MG Capsule PO (21:36)
[2019-11-17] MEDS: traZODone 100 MG Tablet PO (21:36)
[2019-11-18 03:00] VITALS: BP 108/69; PULSE 81; RESP 18; TEMP 36.2; O2SAT 97
[2019-11-18] MEDS: Gabapentin 300 MG Capsule PO (05:38)
[2019-11-18] MEDS: Enoxaparin 100 MG/ML Syringe SC (05:38)
[2019-11-18 06:18] LABS: Absolute Lymphocyte Count 1.74 X10^3/uL (0.83-4.51); Absolute Neutrophil Count 4.3 X10^3/uL (2.0-7.7); Basophil# 0.03 X10^3/uL; Basophil% 0.4 % (0-1); Eosinophil# 0.31 X10^3/uL; Eosinophils% 4.5 % (0-5); Hematocrit 27.4 % (37-47); Hemoglobin 8.9 g/dL (12.0-15.0); Lymphocyte # 1.74 X10^3/ul (4.0); Lymphocyte % 25.1 % (19-41); Mean Corp Hgb Conc 32.5 g/dL (32-36); Mean Corpuscular Hgb 28.9 pg (27.0-32.0); Mean Platelet Vol. 9.2 fl (6.2-12.0); Monocyte% 7.2 % (0-10); NRBC Flagged by Analyzer 0 % (0-5); Neutrophil # 4.29 X10^3/uL (2.7-7.7); Neutrophil % 61.8 % (47-70); Platelet Count 502 K/mm3 (150-450); RBC Distribution Width CV 15.8 % (11.6-14.6); Red Blood Count 3.08 M/mm3 (4.2-5.4); White Blood Count 6.9 K/mm3 (4.4-11.0)
[2019-11-18 07:50] VITALS: O2SAT 90
[2019-11-18 09:59] VITALS: BP 106/67; PULSE 76; RESP 18; TEMP 36.9; O2SAT 98
[2019-11-18] MEDS: DULoxetine Hcl 60 MG Capsule PO (10:04)
[2019-11-18] MEDS: Pantoprazole Sodium 40 MG Tablet PO (10:05)
[2019-11-18 10:58] VITALS: PULSE 82
--- NOTE | 2019-11-18 11:36 | DCINST_ITS ---
- Discharge Diagnoses Current Active Problems: Current Active and Chronic Problems (Last Reviewed 07/08/19 @ 18:30 by Magdalena Kelly) Sinus tachycardia seen on cardiac monitor technician (Acute) Sepsis (Acute) You will use the following diet at home:: Regular Your food should be the consistency of: Regular Your liquids should be the consistency of: Regular/Thin Call your doctor if you observe: Fever of 101 or Higher, Shortness of breath, Dizziness, Fainting spells, Swelling in the ankles, Chest pain, Increased palpitations (irregular heartbeat) Instructions: Caring for Your Usman Lim Drainage Tube Additional Instructions: Obtain an INR from your PCP in 3 days to monitor coumadin dosing Allergies/Adverse Reactions: Allergies meperidine [From Demerol] Allergy (Verified 11/15/19 10:58) Vomiting Penicillins [PCN] Allergy (Verified 11/15/19 10:58) Unknown adhesive tape Adverse Reaction (Verified 11/15/19 10:58) Hives ciprofloxacin [From Cipro] Adverse Reaction (Verified 11/15/19 10:58) Hives floxacillin Adverse Reaction (Verified 11/15/19 10:58) Vomiting Sulfa (Sulfonamide Antibiotics) Adverse Reaction (Verified 11/15/19 10:58) Rash Medications to take at Discharge Magnesium Oxide 400 mg PO DAILY 11/26/18 Omeprazole [Prilosec] 40 mg PO DAILY 11/26/18 Trospium Chloride [Sanctura] 20 mg PO BID 11/26/18 traZODone [Desyrel] 100 mg PO QHS PRN 11/26/18 duloxetine 60 mg capsule,delayed release 60 mg PO DAILY cap 12/20/18 Tizanidine HCl 2 mg PO Q6H PRN PRN 05/12/19 propranolol 80 mg capsule,extended release 24 hr 80 mg PO DAILY #90 cap 08/01/19 Gabapentin [Neurontin] 300 mg PO TID 11/15/19 Hydrochlorothiazide [Hctz] 25 mg PO QHS 11/15/19 Warfarin Sodium [Coumadin] 2 mg PO DAILY #0 11/18/19 Primary Care Physician: Fátima Rodriguez MD [Primary Care Provider] - Please follow up with your Primary Care Physician in: 1-2 weeks Test Results: Test results from this visit will be discussed in further detail at your follow- up appointment, if applicable.
--- NOTE | 2019-11-18 11:38 | DS.PCM_ITS ---
Discharge Date and Diagnosis - Problem List Patient Problems: Active and Suspected Problems (Last Reviewed 07/08/19 @ 18:30 by Magdalena Kelly) Sinus tachycardia seen on power grader operator (Acute) Sepsis (Acute) Date of Admission: 11/15/19 Date of Discharge: 11/18/19 - Primary Discharge Diagnosis Active and Suspected Problems (Last Reviewed 07/08/19 @ 18:30 by Magdalena Kelly) Sinus tachycardia seen on power grader operator (Acute) Sepsis (Acute) - Secondary Discharge Diagnosis Chronic Problems (Last Reviewed 07/08/19 @ 18:30 by Magdalena Kelly) snf current use of anticoagulant (Chronic) HTN (hypertension) (Chronic) AVM (arteriovenous malformation) (Chronic) Has 8 of them removed from various locations in her body,: legs, arms, chest, back. Anxiety and depression (Chronic) Chronic back pain (Chronic) Fibromyalgia (Chronic) Obesity (BMI 30.0-34.9) (Chronic) Osteoarthritis (Chronic) Hospital Course and Treatment Imaging Results: CTA Chest: IMPRESSION: No evidence pulmonary embolus. No evidence of thoracic aortic aneurysm or dissection. Elevation of the right hemidiaphragm with right basilar atelectasis. No pulmonary infiltrate or pleural effusions. Fluid and small foci of air in the gallbladder fossa with adjacent stranding. This is suspicious for infection in this patient who is recently status post cholecystectomy. If indicated, a dedicated abdominal CT can be performed. CT Abd/pelvis: IMPRESSION: Status post cholecystectomy. 5.7 x 4.0 x 3.1 cm fluid collection with small foci of air in the gallbladder fossa. This is suspicious for infection. If there is concern for a biloma, consider further evaluation with a nuclear medicine hepatobiliary study. Common bile duct stent in place. The proximal end of the stent does not communicate with the fluid collection. CT Guided Abscess Drainage: TECHNIQUE: CT sections were made through the abdomen and pelvis revealing an abscess in the gallbladder fossa. The skin surface was prepped and draped in a sterile fashion. Puncture of this collection was performed initially with a 5 Hungarian catheter and fluid was aspirated. Drainage catheter was then inserted into the collection and formed into position. Additional fluid was aspirated for a total of approximately 30 cc of cloudy red fluid. The catheter was sutured into position to allow for continued drainage. Followup CT sections reveals good position of the catheter. Consults: None Operations: None Procedures: None Summary of Care Provided: Per HPI: The patient is a 54 year old F with a PMH as below who presents to the hospital with abdominal pain and sensation of tachycardia. She has a history of A. fib so she does check her pulse and noticed that she had been running high for the last couple days. 10 days ago she had her gallbladder taken out at [facility] and had a common bile duct stent put in, that does not communicate with the fluid collection. She states that she had been having issues with her gallbladder since about August. She was very sick at the time and had a cholecystostomy tube initially placed, and then that was removed and 3 weeks later she was supposed to have her gallbladder removed. She now comes in with continued, and worsening right upper quadrant discomfort as well as tachycardia. Initially she thought it was her A. fib acting up however when she presented to the ER today a CT scan was obtained which demonstrated a 5.7 x 4 x 3.7 cm fluid collection in the gallbladder fossa that was suspicious for an infection. She is afebrile and she does not have an elevated white count but she does have a left shift, CT of her chest was also done due to an elevated d-dimer though this is expected given her surgery and continued infection. Hospital Course: 1. Postcholecystectomy abscess in the gallbladder fossa status post drainage 11/17/[id number]-gegc-old female who back in August had cholecystitis however she was too sick to undergo the procedure and therefore had a cholecystostomy tube placed at that time. When she improved she ended up having her gallbladder removed at [facility] and she has continued to have some abdominal pain that has slowly gotten worse since then. She presented to this hospital with no fever or leukocytosis however CT scan of her abdomen demonstrated a 5.7 x 4 x 3.7 cm fluid collection which was drained yesterday and IR. She had about 30 cc removed and that was sent for culture and so far is been no growth. She has had no output since the drain was put in therefore the drain was removed this morning at bedside. On admission she was started on Invanz which she has received 4 doses of her last being this morning. She has been having diarrhea since the procedure, and this is likely related to her cholecystectomy and may benefit as an outpatient from being started on cholestyramine if her bowel movements do not slow down. She was tested for C. difficile at the request of her [facility] surgeon and that came back negative. I discussed the discharge plan with her and she expressed understanding the risks and benefits and would like to go home as soon as possible. She is to follow-up with her primary care doctor for an outpatient INR to monitor her Coumadin level which was restarted at 2 mg every night. Also she will need to follow-up with her [facility] surgeon for an outpatient appointment if previously scheduled. 2. A. fib/HTN-she is usually on 2 mg of Coumadin at night however this was held during her procedure and immediately postop. When she presented to the ER her INR was 1.1, she was started on therapeutic Lovenox prior to the procedure which was held on the morning of the procedure. She can resume her Coumadin tonight and follow-up with an INR as an outpatient. Her hydrochlorothiazide was held initially because of an elevated creatinine however that that will be continued along with the propranolol on discharge. 3. Her other medical diagnoses were evaluated and her home medications were continued where appropriate Patient Problems: Active and Suspected Problems (Last Reviewed 07/08/19 @ 18:30 by Magdalena Kelly) Sinus tachycardia seen on power grader operator (Acute) Sepsis (Acute) - Physical Exam Vitals/I&O's: Vital Signs Temp Pulse Resp BP Pulse Ox 98.4 F 82 18 106/67 98 11/18/19 09:59 11/18/19 10:58 11/18/19 09:59 11/18/19 09:59 11/18/19 09:59 Oxygen Flow Rate (L/min) [6] 2 Oxygen Flow Rate (L/min) [5] 2 Oxygen Flow Rate (L/min) [4] 2 Oxygen Flow Rate (L/min) [3] 2 Oxygen Flow Rate (L/min) [2] 2 Oxygen Flow Rate (L/min) [1 ( 2 Initial Baseline)] Oxygen Delivery Method [6] Nasal Cannula Oxygen Delivery Method [5] Nasal Cannula Oxygen Delivery Method [4] Nasal Cannula Oxygen Delivery Method [3] Nasal Cannula Oxygen Delivery Method [2] Nasal Cannula Oxygen Delivery Method [1 ( Nasal Cannula Initial Baseline)] Oxygen Delivery Method Room Air Weight: 223 lb 15.834 oz Body Mass Index (BMI) 35.0 Finger Stick Blood Glucose 92 Intake and Output for Last 24 Hours 11/16/19 11/17/19 11/18/19 23:59 23:59 23:59 Intake Total 910 / 1332 2352.75 / 2352.75 60 60 Output Total 800 / 1100 1215 / 1215 Balance 110 / 232 1137.75 / 1137.75 60 / 60 General: Alert, Oriented x3, Cooperative, No apparent distress HEENT: Atraumatic, PERRLA, EOMI, Normocephalic Oral: Moist Mucosa Neck: Supple, No JVD Lungs: Clear to auscultation, Normal air movement, No rhonchi, No wheeze, No r ales, Diminished Cardiovascular: Regular rate and rhythm, Normal S1, Normal S2, No murmurs Abdomen: Soft, Non Tender, Non-Distended, No Hepato-splenomegaly Extremities: No edema, Capillary Refill Less than 3 Seconds Skin: No rashes, No breakdown Neurological: Neuro grossly intact, Sensory exam intact to light touch and pain Psych/Mental Status: Normal Affect, Appropriate Microbiology Past 72 Hours 11/17/19 11:50 Aspirate - Abdominal Wound Culture - Preliminary No growth-Final to follow 11/17/19 17:40 Stool C. difficile DNA Amplification - Final Laboratory Results 11/18/19 05:46: WBC 6.9, RBC 3.08 L, Hgb 8.9 L, Hct 27.4 L, MCV 89.0, MCH 28.9, MCHC 32.5, RDW Std Deviation 51.0 H, RDW Coeff of Prabhu 15.8 H, Plt Count 502 H, MPV 9.2, Immature Gran % (Auto) 1.000 H, Neut % (Auto) 61.8, Lymph % (Auto) 25.1, [place] % (Auto) 7.2, Eos % (Auto) 4.5, Baso % (Auto) 0.4, Absolute Neuts (auto) 4.3, Absolute Lymphs (auto) 1.74, Nucleated RBC % 0 Current Medications Acetaminophen (Tylenol) 650 mg PO Q6H PRN PRN PRN Reason: Pain Score 1-10/Temp > 100.7 F Last Admin: 11/17/19 21:36 Dose: 650 mg Documented by: Duloxetine HCl (Cymbalta) 60 mg PO DAILY HUYEN Last Admin: 11/18/19 10:04 Dose: 60 mg Documented by: Enoxaparin Sodium (Lovenox) 100 mg SC Q12@0600,1800 [facility] Last Admin: 11/18/19 05:38 Dose: 100 mg Documented by: Gabapentin (Neurontin) 300 mg PO TID [facility] Last Admin: 11/18/19 05:38 Dose: 300 mg Documented by: Ertapenem 1 gm/ Sodium (Chloride) 60 mls @ 100 mls/hr IV Q24 [facility] Last Infusion: 11/18/19 11:03 Dose: Infused Documented by: Sodium Chloride () 250 mls @ 15 mls/hr IV .[id number] PRN PRN Reason: Saline Flush Sodium Chloride () 250 mls @ 15 mls/hr IV .[id number] PRN PRN Reason: Additional IVPB Infusion Ondansetron HCl (Zofran) 4 mg IV Q8H PRN PRN PRN Reason: NAUSEA/VOMITING Last Admin: 11/17/19 08:36 Dose: 4 mg Documented by: Pantoprazole Sodium (Protonix) 40 mg PO DAILY [facility] Last Admin: 11/18/19 10:05 Dose: 40 mg Documented by: Propranolol HCl (Inderal La) 80 mg PO DAILY@2200 [facility] Last Admin: 11/17/19 21:36 Dose: 80 mg Documented by: Sodium Chloride () 10 - 40 ml IV UD PRN PRN Reason: SALINE FLUSH Last Admin: 11/17/19 18:17 Dose: 10 ml Documented by: Tizanidine HCl (Zanaflex) 2 mg PO Q6H PRN PRN PRN Reason: muscle cramps Last Admin: 11/17/19 18:17 Dose: 2 mg Documented by: Trazodone HCl (Desyrel) 100 mg PO QHS PRN PRN Reason: INSOMNIA Last Admin: 11/17/19 21:36 Dose: 100 mg Documented by: Call your doctor if you observe: Fever of 101 or Higher, Shortness of breath, Dizziness, Fainting spells, Swelling in the ankles, Chest pain, Increased palpitations (irregular heartbeat) Home Medications: Medications to take at Discharge Magnesium Oxide 400 mg PO DAILY 11/26/18 Omeprazole [Prilosec] 40 mg PO DAILY 11/26/18 Trospium Chloride [Sanctura] 20 mg PO BID 11/26/18 traZODone [Desyrel] 100 mg PO QHS PRN 11/26/18 duloxetine 60 mg capsule,delayed release 60 mg PO DAILY cap 12/20/18 Tizanidine HCl 2 mg PO Q6H PRN PRN 05/12/19 propranolol 80 mg capsule,extended release 24 hr 80 mg PO DAILY #90 cap 08/01/19 Gabapentin [Neurontin] 300 mg PO TID 11/15/19 Hydrochlorothiazide [Hctz] 25 mg PO QHS 11/15/19 Warfarin Sodium [Coumadin] 2 mg PO DAILY #0 11/18/19 Primary Care Physician: Fátima Rodriguez MD [Primary Care Provider] - Please follow up with your Primary Care Physician in: 1-2 weeks Patient Instructions: Caring for Your Usman Lim Drainage Tube Disposition: Home Minutes spent on discharge:: 35 Patient Condition:: Stable Medical Necessity - Tobacco Use Smoking Status: Never smoker Meaningful Use Info Meaningful Use Diagnoses (Choose all that apply): None applicable Inpatient E&M: [id number] [facility] Hosp
--- NOTE | 2019-11-18 13:30 | CASEMGMT ---
SW checked back with patient to see if she would like to complete advance directives or if she had any more questions. She was grateful that the SW spoke with her yesterday about the documents and she did a great job. She spoke with her sons and her fiance. She wants to take the documents home and have her son and fiance read over them first before they complete them. She said she comes in to the hospital all the time for tests etc. She wanted to know where to drop off completed documents. BARRINGTON told her Medical Records also known as Health Information Management. She thanked BARRINGTON for checking back. Courtney PEREZ MSW
== END 2019-11-18 14:02 | disposition home or self-care (01) | DRG 372 ==
LOC: ED 15:03 → MS3 15:36
PROVIDERS: Admitting Provider Family Medicine; Emergency Provider Emergency Medicine; PCP Internal Medicine; Visit Provider Family Medicine
DX: K65.1 Peritoneal abscess (principal); Q27.30 Arteriovenous malformation, site unspecified; I48.20 Chronic atrial fibrillation, unspecified; T81.49XA Infection following a procedure, other surgical site, initial encounter; I10 Essential (primary) hypertension; G89.29 Other chronic pain; F32.9 Major depressive disorder, single episode, unspecified; F41.9 Anxiety disorder, unspecified; M54.9 Dorsalgia, unspecified; E66.9 Obesity, unspecified; M19.90 Unspecified osteoarthritis, unspecified site; Z79.01 Long term (current) use of anticoagulants; Z79.899 Other long term (current) drug therapy; Z68.36 Body mass index [BMI] 36.0-36.9, adult; K21.9 Gastro-esophageal reflux disease without esophagitis
CPT/HCPCS: 20501; 36415; 71275; 74170; 77012; 80048; 80053; 84484; 85025; 85379; 85610; 85730; 87070; 87075; 87205; 87493; 88108; 88305; 88313; 93005; 96360; 99156; 99157; 99285; J7030; J7040; Q9967; A4216; J2405

== ENCOUNTER 2019-12-18 12:19 | Outpatient (RCR) | payer MEDICARE, MEDICAID, SELFPAY ==
[2019-11-15 16:09] VITALS: BMI 35.0
[2019-12-04 11:34] LABS: International Normalized Ratio 1.7
[2019-12-18 14:19] LABS: International Normalized Ratio 1.4
== END 2019-12-18 18:00 | disposition home or self-care (01) ==
LOC: LAB 12:19
PROVIDERS: Family Provider Internal Medicine; PCP Internal Medicine; Referring Provider Internal Medicine Cardiovascular Disease; Visit Provider Internal Medicine Cardiovascular Disease
DX: I48.91 Unspecified atrial fibrillation (principal); Z79.01 Long term (current) use of anticoagulants
CPT/HCPCS: 36415; 85610

== ENCOUNTER 2019-12-25 11:50 | Outpatient (RCR) | payer MEDICARE, MEDICAID, SELFPAY ==
[2019-11-15 16:09] VITALS: BMI 35.0
[2019-12-25 12:48] LABS: International Normalized Ratio 2.1; Prothrombin Time (Protime)PT. 23.1 SECONDS (11.7-14.9)
== END 2019-12-25 18:00 | disposition home or self-care (01) ==
LOC: LAB 11:50
PROVIDERS: Family Provider Internal Medicine; PCP Internal Medicine; Referring Provider Internal Medicine Cardiovascular Disease; Visit Provider Internal Medicine Cardiovascular Disease
DX: I48.91 Unspecified atrial fibrillation (principal); Z79.01 Long term (current) use of anticoagulants
CPT/HCPCS: 36415; 85610

== ENCOUNTER 2020-02-16 13:43 | Outpatient (RCR) | payer MEDICARE, MEDICAID, SELFPAY ==
[2019-11-15 16:09] VITALS: BMI 35.0
[2020-01-29 12:42] LABS: Prothrombin Time (Protime)PT. 39.2 SECONDS (11.7-14.9)
[2020-02-05 11:22] LABS: Prothrombin Time (Protime)PT. 35.5 SECONDS (11.7-14.9)
[2020-02-05 12:13] LABS: International Normalized Ratio 3.6
[2020-02-12 13:01] LABS: Prothrombin Time (Protime)PT. 45.5 SECONDS (11.7-14.9)
[2020-02-12 13:04] LABS: International Normalized Ratio 4.9
[2020-02-16 14:10] LABS: International Normalized Ratio 2.2; Prothrombin Time (Protime)PT. 23.5 SECONDS (11.7-14.9)
== END 2020-02-16 18:00 | disposition home or self-care (01) ==
LOC: LAB 13:43
PROVIDERS: Family Provider Internal Medicine; PCP Internal Medicine; Referring Provider Internal Medicine Cardiovascular Disease; Visit Provider Internal Medicine Cardiovascular Disease
DX: I48.91 Unspecified atrial fibrillation (principal); Z79.01 Long term (current) use of anticoagulants
CPT/HCPCS: 36415; 85610

== ENCOUNTER 2020-03-08 11:45 | Outpatient (RCR) | payer MEDICARE, MEDICAID, SELFPAY ==
[2019-11-15 16:09] VITALS: BMI 35.0
[2020-02-23 14:12] LABS: Prothrombin Time (Protime)PT. 21.8 SECONDS (11.7-14.9)
[2020-03-08 12:50] LABS: International Normalized Ratio 2.5; Prothrombin Time (Protime)PT. 26.5 SECONDS (11.7-14.9)
== END 2020-03-22 18:00 | disposition home or self-care (01) ==
LOC: LAB 11:45
PROVIDERS: Family Provider Internal Medicine; PCP Internal Medicine; Referring Provider Internal Medicine Cardiovascular Disease; Visit Provider Internal Medicine Cardiovascular Disease
DX: I48.91 Unspecified atrial fibrillation (principal); Z79.01 Long term (current) use of anticoagulants
CPT/HCPCS: 36415; 85610

== ENCOUNTER 2020-04-12 14:29 | Outpatient (RCR) | payer MEDICARE, MEDICAID, SELFPAY ==
[2020-03-19 15:41] VITALS: BMI 35.0
[2020-04-12 16:05] LABS: International Normalized Ratio 1.9; Prothrombin Time (Protime)PT. 21.6 SECONDS (11.7-14.9)
== END 2020-04-12 18:00 | disposition home or self-care (01) ==
LOC: LAB 14:29
PROVIDERS: Family Provider Internal Medicine; PCP Internal Medicine; Referring Provider Internal Medicine Cardiovascular Disease; Visit Provider Internal Medicine Cardiovascular Disease
DX: I48.0 Paroxysmal atrial fibrillation (principal); Z79.01 Long term (current) use of anticoagulants
CPT/HCPCS: 36415; 85610

== ENCOUNTER 2020-05-20 14:34 | Outpatient (RCR) | payer MEDICARE, MEDICAID, SELFPAY ==
[2020-03-19 15:41] VITALS: BMI 35.0
[2020-04-26 15:14] LABS: International Normalized Ratio 2.2; Prothrombin Time (Protime)PT. 23.8 SECONDS (11.7-14.9)
[2020-05-20 15:47] LABS: International Normalized Ratio 2.3; Prothrombin Time (Protime)PT. 25.1 SECONDS (11.7-14.9)
== END 2020-05-20 18:00 | disposition home or self-care (01) ==
LOC: LAB 14:34
PROVIDERS: Family Provider Internal Medicine; PCP Internal Medicine; Referring Provider Internal Medicine Cardiovascular Disease; Visit Provider Internal Medicine Cardiovascular Disease
DX: I48.0 Paroxysmal atrial fibrillation (principal); Z79.01 Long term (current) use of anticoagulants
CPT/HCPCS: 36415; 85610

== ENCOUNTER 2020-06-14 15:01 | Outpatient (RCR) | payer MEDICARE, MEDICAID, SELFPAY ==
[2020-03-19 15:41] VITALS: BMI 35.0
[2020-06-14 17:31] LABS: Prothrombin Time (Protime)PT. 34.9 SECONDS (11.7-14.9)
[2020-06-14 18:05] LABS: International Normalized Ratio 3.5
== END 2020-06-14 18:00 | disposition home or self-care (01) ==
LOC: LAB 15:01
PROVIDERS: Family Provider Internal Medicine; PCP Internal Medicine; Referring Provider Internal Medicine Cardiovascular Disease; Visit Provider Internal Medicine Cardiovascular Disease
DX: I48.0 Paroxysmal atrial fibrillation (principal); Z79.01 Long term (current) use of anticoagulants
CPT/HCPCS: 36415; 85610

== ENCOUNTER 2020-07-01 12:34 | Outpatient (RCR) | payer MEDICARE, MEDICAID, SELFPAY ==
[2020-03-19 15:41] VITALS: BMI 35.0
[2020-07-01 13:35] LABS: International Normalized Ratio 2.4; Prothrombin Time (Protime)PT. 25.5 SECONDS (11.7-14.9)
== END 2020-07-01 18:00 | disposition home or self-care (01) ==
LOC: LAB 12:34
PROVIDERS: Family Provider Internal Medicine; PCP Internal Medicine; Referring Provider Internal Medicine Cardiovascular Disease; Visit Provider Internal Medicine Cardiovascular Disease
DX: I48.0 Paroxysmal atrial fibrillation (principal); Z79.01 Long term (current) use of anticoagulants
CPT/HCPCS: 36415; 85610

== ENCOUNTER 2020-08-19 14:18 | Outpatient (RCR) | payer MEDICARE, MEDICAID, SELFPAY ==
[2020-03-19 15:41] VITALS: BMI 35.0
[2020-08-19 15:06] LABS: International Normalized Ratio 2.8; Prothrombin Time (Protime)PT. 28.8 SECONDS (11.7-14.9)
== END 2020-08-19 18:00 | disposition home or self-care (01) ==
LOC: LAB 14:18
PROVIDERS: Family Provider Internal Medicine; PCP Internal Medicine; Referring Provider Internal Medicine Cardiovascular Disease; Visit Provider Internal Medicine Cardiovascular Disease
DX: I48.0 Paroxysmal atrial fibrillation (principal); Z79.01 Long term (current) use of anticoagulants
CPT/HCPCS: 36415; 85610

== ENCOUNTER 2020-09-23 13:49 | Emergency (ER) | payer MEDICARE, MEDICAID, SELFPAY ==
[2020-03-19 15:41] VITALS: BMI 35.0
[2020-09-23 13:51] VITALS: BP 139/82; PULSE 98; RESP 17; TEMP 36.4; O2SAT 99; BMI 38.0
--- NOTE | 2020-09-23 14:22 | EKG12_ITS ---
Test Reason : RHYTHMN CHANGE Blood Pressure : / mmHG Vent. Rate : 099 BPM Atrial Rate : 099 BPM P-R Int : 158 ms QRS Dur : 070 ms QT Int : 348 ms P-R-T Axes : 033 017 -28 degrees QTc Int : 446 ms Normal sinus rhythm ST & T wave abnormality, consider anterolateral ischemia Abnormal ECG Confirmed by ENA POWER, NICK ([id number]), photo editor REKHA WALDEN ([id number]) on 09/27/2020 2:38:23 PM Referred By: ROMAN Confirmed By:NICK SUTHERLAND MD
--- NOTE | 2020-09-23 14:23 | ED.DCSUM_ITS ---
- ER Visit Summary Date of Service: 09/23/20 Chief Complaint: Chest pain History of Present Illness: The patient is a 55 F who presents with chest pain that began 1 week ago. Patient states it began rather suddenly. Patient states that last approximate 20 minutes. Patient states it then resolved. Patient states she has had no further episodes since that time. Patient describes her pain as a squeezing and tightness in her chest. Patient states nothing made it better and nothing made it worse. Patient does admit to some shortness of breath over the past week. Patient states he was nauseated when it happened. Patient denies a vomiting. Patient admits to some intermittent palpitations. Patient states that while she was having the chest pain that radiated up into her jaw. Patient states she felt lightheaded and dizzy at the time. Physical Examination: Vital signs are stable. Patient is afebrile. Patient is in no acute distress. Oral mucosa is pink and moist. Neck is supple. Trachea is midline. There is no JVD noted. Heart was regular rate and rhythm. Lungs are clear and equal bilaterally. Abdomen is soft. Bowel sounds are normal. There is no tenderness. There is no rebound or guarding noted. Skin is warm dry. Cranial nerves II through XII are intact. There are no focal motor or sensory deficits noted. Extremities are intact. There is no calf tenderness or edema. Test Results: EKG was obtained. On my interpretation, there is a normal sinus rhythm with a rate of 89. There is T wave inversion in the precordial leads. These are new compared to previous EKG dated 11/15/2019. However, EKG dated 09/16/2019 showed T wave inversion that was worse than today's EKG. CBC was within normal limits. PT with INR and PTT were normal. Portable 1 view chest x-ray was obtained. On my interpretation, lung greenberg are clear. There is normal cardiac silhouette. Bony thorax is normal. There is no acute process noted. Radiologist also interpreted the x-ray and agrees. Basic metabolic profile and troponin were obtained and were within normal limits. Emergency Department Course and Treatment: Patient was given aspirin. Case was discussed with Dr. Bryan. He also reviewed the prior EKGs and agrees. Since the patient's troponin is normal, he feels the patient can be discharged home and he will follow up with the patient in the office. Patient understands and is agreeable with this plan. All questions were answered. Disposition: Discharge home Impression: 1. Chest pain This note was generated with PureHistory dictation software. It may contain incorrect words, spelling, and punctuation that were not noted in review of the chart prior to signing ED Disposition - Plan for ED Patient: Disposition: Home or Assisted Living Diagnosis: Chest pain Instructions: ED Chest Pain, Uncertain Cause Referrals: Fátima Rodriguez MD [Primary Care Provider] - 5-7 Days Misael Bryan MD [STAFF PHYSICIAN] - 3-5 Days
[2020-09-23 14:25] VITALS: BP 126/92; PULSE 90; RESP 18; O2SAT 99
[2020-09-23 14:35] LABS: Absolute Neutrophil Count 5.3 X10^3/uL (2.0-7.7); Basophil# 0.04 X10^3/uL; Basophil% 0.5 % (0-1); Eosinophil# 0.11 X10^3/uL; Eosinophils% 1.4 % (0-5); Hematocrit 38.6 % (37-47); Hemoglobin 12.5 g/dL (12.0-15.0); Lymphocyte % 23.9 % (19-41); Mean Corp Hgb Conc 32.4 g/dL (32-36); Mean Corpuscular Hgb 28.7 pg (27.0-32.0); Mean Corpuscular Volume 88.5 fL (81-99); Mean Platelet Vol. 10.5 fl (6.2-12.0); Monocyte# 0.59 X10^3/uL; Monocyte% 7.4 % (0-10); NRBC Flagged by Analyzer 0 % (0-5); Neutrophil # 5.28 X10^3/uL (2.7-7.7); Neutrophil % 66.4 % (47-70); Platelet Count 377 K/mm3 (150-450); RBC Distribution Width CV 15.8 % (11.6-14.6); RBC Distribution Width SD 50.5 fl (35.1-43.9); Red Blood Count 4.36 M/mm3 (4.2-5.4)
[2020-09-23] MEDS: Aspirin 81 MG TAB.CHEW 324 MG PO (14:38)
--- NOTE | 2020-09-23 14:40 | RAD_ITS ---
STUDY: X-RAY CHEST REASON FOR EXAM: Female, 55 years old. Chest pain TECHNIQUE: Single AP portable view of the chest. COMPARISON: Comparison is made with prior study 05/11/2019. FINDINGS: EKG electrodes are seen. Stable elevation of the right hemidiaphragm. Mild increased linear markings at the right lung base suggestive of linear atelectasis. There is no demonstrated pleural abnormality. Normal size heart. Normal mediastinum and gabby. Normal visualized pulmonary arteries. Normal visualized aortic arch and descending thoracic aorta. There are diffuse degenerative changes of the visualized thoracic spine. Normal visualized ribs, clavicles, and shoulders. There is no demonstrated abnormality of the visualized soft tissue structures of the upper abdomen. RAD/Chest 1 View (Portable) IMPRESSION: Stable elevation of the right hemidiaphragm with findings suggestive of right basilar linear atelectasis. Electronically Signed: Sukumar Robb MD at 14:55 EST , Service support ,
--- NOTE | 2020-09-23 14:51 | ED.RN ---
pt lab hemolyzed. pt has been stuck multiple times. lab contacted to come draw blood
[2020-09-23 15:24] LABS: International Normalized Ratio 2.2
[2020-09-23 15:25] LABS: Partial Thromboplast Time 45.5 Seconds (24.1-36.2)
[2020-09-23 16:00] VITALS: BP 142/92; PULSE 81; RESP 16; O2SAT 100
[2020-09-23 16:23] LABS: Anion Gap 7 (5-15); BUN 13 mg/dL (7-18); BUN/Creat Ratio 12.9 RATIO (10-20); Calcium,Total 8.9 mg/dL (8.5-10.1); Chloride 104 mmol/L (98-107); Creatinine, Serum 1.01 mg/dL (0.55-1.02); EST Glomerular Filtration Rate 61 mL/min (>60); Est Glom Filt Rate - Afr Amer 74 mL/min (>60); Estimated Creatinine Clearance 62.64 ml/min; Glucose 105 mg/dL (74-106); Potassium 3.9 mmol/L (3.5-5.1); Sodium Level 139 mmol/L (136-145)
== END 2020-09-23 16:34 | disposition home or self-care (01) ==
PROVIDERS: Emergency Provider Emergency Medicine; PCP Internal Medicine
DX: R07.9 Chest pain, unspecified (principal); E66.9 Obesity, unspecified; K21.9 Gastro-esophageal reflux disease without esophagitis; E11.9 Type 2 diabetes mellitus without complications; I10 Essential (primary) hypertension; I48.0 Paroxysmal atrial fibrillation; F41.9 Anxiety disorder, unspecified; Z79.01 Long term (current) use of anticoagulants; Z79.84 Long term (current) use of oral hypoglycemic drugs; Z79.899 Other long term (current) drug therapy
CPT/HCPCS: 36415; 71045; 80048; 84484; 85025; 85610; 85730; 93005; 99285; A4216

== ENCOUNTER → 2020-10-07 06:27 | Outpatient (CLI) | payer MEDICARE, MEDICAID, SELFPAY ==
[2020-09-23 13:51] VITALS: BMI 38.0
--- NOTE | 2020-10-07 17:56 | STRESSREP ---
Stress Test Report Pharmacologic myocardial perfusion stress test. 55-year-old lady with a history of chest pain and EKG changes. Stress protocol: Resting EKG demonstrates normal sinus rhythm with a rate of 93 bpm normal intervals are noted resting blood pressure is 122/80 mmHg. 0.4 mg of regadenoson was infused per usual protocol followed by rapid intravenous saline flush injection continuous classroom monitor was performed. The maximum heart rate attained was 122 bpm which was 73% of max impacted heart rate the maximum workload was 1 metabolic equivalent. At rest there were no ST or T wave changes noted suggest abnormal flow reserve at peak infusion nonspecific ST changes were noted with no meet the criteria for ischemia. No clinical angina was noted. Myocardial perfusion protocol. 14.5 mCi of technetium 99m sestamibi was injected at rest. 0.4 mg of regadenoson was infused per usual protocol. At peak infusion 44.6 mCi of technetium 99m sestamibi was injected stress images were obtained stress and rest images were reconstructed and compared in the short axis vertical and horizontal long axis. Gated images were also obtained Perfusion SPECT analysis: Review of the stress images demonstrate normal uptake of tracer noted in all areas of the myocardium the resting images similar demonstrate normal uptake of tracer noted in all areas of the myocardium. No areas of reversibility are noted suggest ischemia no previous infarct is noted. Gated SPECT analysis: The gated ejection fraction is noted to be 84%. Conclusion: Normal pharmacologic myocardial perfusion stress test. Preserved ejection fraction.
== END ==
PROVIDERS: PCP Internal Medicine; Referring Provider Internal Medicine Cardiovascular Disease; Visit Provider Internal Medicine Cardiovascular Disease
DX: Z79.01 Long term (current) use of anticoagulants (principal)
CPT/HCPCS: 78452; 93017; A9500; A4216; J2785

== ENCOUNTER 2020-11-18 14:05 | Outpatient (RCR) | payer MEDICARE, MEDICAID, SELFPAY ==
[2020-03-19 15:41] VITALS: BMI 35.0
[2020-10-14 13:40] VITALS: BMI 39.1
[2020-11-05 11:28] LABS: International Normalized Ratio 1.6; Prothrombin Time (Protime)PT. 18.3 SECONDS (11.7-14.9)
[2020-11-11 15:58] LABS: International Normalized Ratio 1.2; Prothrombin Time (Protime)PT. 14.4 SECONDS (11.7-14.9)
[2020-11-18 15:01] LABS: International Normalized Ratio 1.3; Prothrombin Time (Protime)PT. 15.7 SECONDS (11.7-14.9)
== END 2020-11-18 18:00 | disposition home or self-care (01) ==
LOC: LAB 14:05
PROVIDERS: Family Provider Internal Medicine; PCP Internal Medicine; Referring Provider Internal Medicine Cardiovascular Disease; Visit Provider Internal Medicine Cardiovascular Disease
DX: I48.0 Paroxysmal atrial fibrillation (principal); Z79.01 Long term (current) use of anticoagulants
CPT/HCPCS: 36415; 85610

== ENCOUNTER 2020-12-02 14:01 | Outpatient (RCR) | payer MEDICARE, MEDICAID, SELFPAY ==
[2020-10-14 13:40] VITALS: BMI 39.1
[2020-11-25 16:06] LABS: International Normalized Ratio 1.8; Prothrombin Time (Protime)PT. 19.8 SECONDS (11.7-14.9)
[2020-12-02 15:16] LABS: International Normalized Ratio 2.5; Prothrombin Time (Protime)PT. 26.3 SECONDS (11.7-14.9)
== END 2020-12-02 18:00 | disposition home or self-care (01) ==
LOC: LAB 14:01
PROVIDERS: Family Provider Internal Medicine; PCP Internal Medicine; Referring Provider Internal Medicine Cardiovascular Disease; Visit Provider Internal Medicine Cardiovascular Disease
DX: I48.0 Paroxysmal atrial fibrillation (principal); Z79.01 Long term (current) use of anticoagulants
CPT/HCPCS: 36415; 85610

== ENCOUNTER 2021-02-17 12:35 | Outpatient (RCR) | payer MEDICARE, MEDICAID, SELFPAY ==
[2020-10-14 13:40] VITALS: BMI 39.1
[2021-01-21 13:50] LABS: Prothrombin Time (Protime)PT. 47.2 SECONDS (11.7-14.9)
[2021-01-21 14:06] LABS: International Normalized Ratio 5.2
[2021-01-25 13:50] LABS: Prothrombin Time (Protime)PT. 30.4 SECONDS (11.7-14.9)
[2021-02-01 12:39] LABS: International Normalized Ratio 3.2; Prothrombin Time (Protime)PT. 31.7 SECONDS (11.7-14.9)
[2021-02-17 13:50] LABS: International Normalized Ratio 3.5; Prothrombin Time (Protime)PT. 34.3 SECONDS (11.7-14.9)
== END 2021-02-17 18:00 | disposition home or self-care (01) ==
LOC: LAB 12:35
PROVIDERS: Family Provider Internal Medicine; PCP Internal Medicine; Referring Provider Internal Medicine Cardiovascular Disease; Visit Provider Internal Medicine Cardiovascular Disease
DX: I48.0 Paroxysmal atrial fibrillation (principal); Z79.01 Long term (current) use of anticoagulants
CPT/HCPCS: 36415; 85610

== ENCOUNTER 2021-03-09 13:22 | Outpatient (RCR) | payer MEDICARE, MEDICAID, SELFPAY ==
[2020-10-14 13:40] VITALS: BMI 39.1
[2021-02-25 16:46] LABS: International Normalized Ratio 3.3; Prothrombin Time (Protime)PT. 32.4 SECONDS (11.7-14.9)
[2021-03-09 15:04] LABS: International Normalized Ratio 2.5; Prothrombin Time (Protime)PT. 26.5 SECONDS (11.7-14.9)
== END 2021-03-09 18:00 | disposition home or self-care (01) ==
LOC: LAB 13:22
PROVIDERS: Family Provider Internal Medicine; PCP Internal Medicine; Referring Provider Internal Medicine Cardiovascular Disease; Visit Provider Internal Medicine Cardiovascular Disease
DX: I48.0 Paroxysmal atrial fibrillation (principal); Z79.01 Long term (current) use of anticoagulants
CPT/HCPCS: 36415; 85610

== ENCOUNTER 2021-04-01 15:27 | Outpatient (RCR) | payer MEDICARE, MEDICAID, SELFPAY ==
[2021-03-22 19:55] VITALS: BMI 39.1
[2021-04-01 16:24] LABS: International Normalized Ratio 2.1; Prothrombin Time (Protime)PT. 22.4 SECONDS (11.7-14.9)
== END 2021-04-01 18:00 | disposition home or self-care (01) ==
LOC: LAB 15:27
PROVIDERS: Family Provider Internal Medicine; PCP Internal Medicine; Referring Provider Internal Medicine Cardiovascular Disease; Visit Provider Internal Medicine Cardiovascular Disease
DX: I48.0 Paroxysmal atrial fibrillation (principal); Z79.01 Long term (current) use of anticoagulants
CPT/HCPCS: 36415; 85610

== ENCOUNTER 2021-04-22 15:26 | Outpatient (RCR) | payer MEDICARE, MEDICAID, SELFPAY ==
[2021-04-21 20:10] VITALS: BMI 39.1
[2021-04-22 17:47] LABS: International Normalized Ratio 2.8; Prothrombin Time (Protime)PT. 28.9 SECONDS (11.7-14.9)
== END 2021-05-22 03:26 | disposition home or self-care (01) ==
LOC: LAB 15:26
PROVIDERS: Family Provider Internal Medicine; PCP Internal Medicine; Referring Provider Internal Medicine Cardiovascular Disease; Visit Provider Internal Medicine Cardiovascular Disease
DX: I48.0 Paroxysmal atrial fibrillation (principal); Q27.30 Arteriovenous malformation, site unspecified; Z79.01 Long term (current) use of anticoagulants
CPT/HCPCS: 36415; 85610

== ENCOUNTER 2021-08-05 13:10 | Outpatient (RCR) | payer MEDICARE, MEDICAID, SELFPAY ==
[2021-05-22 03:26] VITALS: BMI 39.1
[2021-08-05 13:58] LABS: International Normalized Ratio 2.9; Prothrombin Time (Protime)PT. 29.3 SECONDS (11.7-14.9)
== END 2021-08-22 18:00 | disposition home or self-care (01) ==
LOC: LAB 13:10
PROVIDERS: Family Provider Internal Medicine; PCP Internal Medicine; Referring Provider Internal Medicine Cardiovascular Disease; Visit Provider Internal Medicine Cardiovascular Disease
DX: I48.0 Paroxysmal atrial fibrillation (principal); Q27.30 Arteriovenous malformation, site unspecified; Z79.01 Long term (current) use of anticoagulants
CPT/HCPCS: 36415; 85610

== ENCOUNTER 2021-12-15 14:19 | Outpatient (RCR) | payer MEDICARE, MEDICAID, SELFPAY ==
[2021-08-22 22:44] VITALS: BMI 39.1
[2021-12-15 15:46] LABS: International Normalized Ratio 2.9; Prothrombin Time (Protime)PT. 30.1 SECONDS (11.7-14.9)
== END 2021-12-15 18:00 | disposition home or self-care (01) ==
LOC: LAB 14:19
PROVIDERS: Family Provider Internal Medicine; PCP Internal Medicine; Referring Provider Internal Medicine Cardiovascular Disease; Visit Provider Internal Medicine Cardiovascular Disease
DX: I48.0 Paroxysmal atrial fibrillation (principal); Q27.30 Arteriovenous malformation, site unspecified; Z79.01 Long term (current) use of anticoagulants
CPT/HCPCS: 36415; 85610

== ENCOUNTER 2022-02-28 15:57 | Outpatient (RCR) | payer MEDICARE, MEDICAID, SELFPAY ==
[2021-12-20 20:25] VITALS: BMI 39.1
[2022-02-28 16:29] LABS: International Normalized Ratio 2.8; Prothrombin Time (Protime)PT. 28.8 SECONDS (11.7-14.9)
== END 2022-02-28 18:00 | disposition home or self-care (01) ==
LOC: LAB 15:57
PROVIDERS: Family Provider Internal Medicine; PCP Internal Medicine; Referring Provider Internal Medicine Cardiovascular Disease; Visit Provider Internal Medicine Cardiovascular Disease
DX: I48.0 Paroxysmal atrial fibrillation (principal); Q27.30 Arteriovenous malformation, site unspecified; Z79.01 Long term (current) use of anticoagulants
CPT/HCPCS: 36415; 85610

== ENCOUNTER 2022-04-05 11:03 | Outpatient (RCR) | payer MEDICARE, MEDICAID, SELFPAY ==
[2022-03-22 22:39] VITALS: BMI 39.1
[2022-04-05 12:12] LABS: Prothrombin Time (Protime)PT. 30.9 SECONDS (11.7-14.9)
== END 2022-04-05 18:00 | disposition home or self-care (01) ==
LOC: LAB 11:03
PROVIDERS: Family Provider Internal Medicine; PCP Internal Medicine; Referring Provider Internal Medicine Cardiovascular Disease; Visit Provider Internal Medicine Cardiovascular Disease
DX: I48.0 Paroxysmal atrial fibrillation (principal); Q27.30 Arteriovenous malformation, site unspecified; Z79.01 Long term (current) use of anticoagulants
CPT/HCPCS: 36415; 85610

== ENCOUNTER 2022-06-02 12:16 | Outpatient (RCR) | payer MEDICARE, MEDICAID, SELFPAY ==
[2022-04-21 20:33] VITALS: BMI 39.1
[2022-06-02 13:46] LABS: International Normalized Ratio 2.8; Prothrombin Time (Protime)PT. 29.4 SECONDS (11.7-14.9)
== END 2022-06-21 18:00 | disposition home or self-care (01) ==
LOC: LAB 12:16
PROVIDERS: Family Provider Internal Medicine; PCP Internal Medicine; Referring Provider Internal Medicine Cardiovascular Disease; Visit Provider Internal Medicine Cardiovascular Disease
DX: I48.0 Paroxysmal atrial fibrillation (principal); Z79.01 Long term (current) use of anticoagulants
CPT/HCPCS: 36415; 85610

== ENCOUNTER 2022-08-01 13:33 | Outpatient (RCR) | payer MEDICARE, MEDICAID, SELFPAY ==
[2022-06-21 22:48] VITALS: BMI 39.1
[2022-08-01 16:39] LABS: Prothrombin Time (Protime)PT. 30.7 SECONDS (11.7-14.9)
== END 2022-08-01 15:00 | disposition home or self-care (01) ==
LOC: LAB 13:33
PROVIDERS: Family Provider Internal Medicine; PCP Internal Medicine; Referring Provider Internal Medicine Cardiovascular Disease; Visit Provider Internal Medicine Cardiovascular Disease
DX: I48.0 Paroxysmal atrial fibrillation (principal); Z79.01 Long term (current) use of anticoagulants
CPT/HCPCS: 36415; 85610

== ENCOUNTER 2022-10-11 10:52 | Outpatient (RCR) | payer MEDICARE, MEDICAID, SELFPAY ==
[2022-08-23 07:56] VITALS: BMI 39.1
[2022-09-27 11:30] LABS: International Normalized Ratio 3.7; Prothrombin Time (Protime)PT. 36.3 SECONDS (11.7-14.9)
[2022-10-03 15:10] LABS: International Normalized Ratio 2.2; Prothrombin Time (Protime)PT. 24.3 SECONDS (11.7-14.9)
[2022-10-11 11:31] LABS: International Normalized Ratio 2.5; Prothrombin Time (Protime)PT. 26.7 SECONDS (11.7-14.9)
== END 2022-10-20 21:37 | disposition home or self-care (01) ==
LOC: LAB 10:52
PROVIDERS: Family Provider Internal Medicine; PCP Internal Medicine; Referring Provider Internal Medicine Cardiovascular Disease; Visit Provider Internal Medicine Cardiovascular Disease
DX: I48.0 Paroxysmal atrial fibrillation (principal); Z79.01 Long term (current) use of anticoagulants
CPT/HCPCS: 36415; 85610

== ENCOUNTER 2022-11-16 13:46 | Outpatient (RCR) | payer MEDICARE, MEDICAID, SELFPAY ==
[2022-10-20 21:38] VITALS: BMI 39.1
[2022-10-27 12:21] LABS: Prothrombin Time (Protime)PT. 30.9 SECONDS (11.7-14.9)
[2022-11-16 14:43] LABS: International Normalized Ratio 2.6; Prothrombin Time (Protime)PT. 27.9 SECONDS (11.7-14.9)
== END 2022-11-19 01:06 | disposition home or self-care (01) ==
LOC: LAB 13:46
PROVIDERS: Family Provider Internal Medicine; PCP Internal Medicine; Referring Provider Internal Medicine Cardiovascular Disease; Visit Provider Internal Medicine Cardiovascular Disease
DX: I48.0 Paroxysmal atrial fibrillation (principal); Z79.01 Long term (current) use of anticoagulants
CPT/HCPCS: 36415; 85610

== ENCOUNTER 2023-02-09 11:52 | Outpatient (RCR) | payer MEDICARE, MEDICAID, SELFPAY ==
[2022-11-19 01:06] VITALS: BMI 39.1
[2023-01-29 13:37] LABS: Hematocrit 40.1 % (37-47); Hemoglobin 13.4 g/dL (12.0-15.0); Mean Corp Hgb Conc 33.4 g/dL (32-36); Mean Corpuscular Hgb 29.8 pg (27.0-32.0); Mean Corpuscular Volume 89.1 fL (81-99); Platelet Count 339 K/mm3 (150-450); RBC Distribution Width CV 14.7 % (11.6-14.6); RBC Distribution Width SD 47.7 fl (35.1-43.9)
[2023-01-29 13:58] LABS: Prothrombin Time (Protime)PT. 23.3 SECONDS (11.7-14.9)
[2023-01-29 14:29] LABS: Anion Gap 5 (5-15); BUN 14 mg/dL (7-18); BUN/Creat Ratio 10.5 RATIO (10-20); Calcium,Total 9.5 mg/dL (8.5-10.1); Chloride 104 mmol/L (98-107); Creatinine, Serum 1.33 mg/dL (0.55-1.02); EST Glomerular Filtration Rate 44 mL/min (>60); Est Glom Filt Rate - Afr Amer 53 mL/min (>60); Glucose 90 mg/dL (74-106); Magnesium 2.3 mg/dL (1.6-2.6); Potassium 3.2 mmol/L (3.5-5.1); Sodium Level 139 mmol/L (136-145); Thyroid Stim Hormone (TSH) 2.36 uIU/mL (0.358-3.74)
[2023-02-09 12:49] LABS: Anion Gap 3 (5-15); BUN 13 mg/dL (7-18); BUN/Creat Ratio 10.7 RATIO (10-20); Calcium,Total 8.8 mg/dL (8.5-10.1); Chloride 107 mmol/L (98-107); Creatinine, Serum 1.22 mg/dL (0.55-1.02); EST Glomerular Filtration Rate 49 mL/min (>60); Est Glom Filt Rate - Afr Amer 59 mL/min (>60); Glucose 96 mg/dL (74-106); Potassium 4.7 mmol/L (3.5-5.1); Sodium Level 139 mmol/L (136-145)
== END 2023-02-19 18:00 | disposition home or self-care (01) ==
LOC: LAB 11:52
PROVIDERS: Physician Assistant Medical; Family Provider Internal Medicine; PCP Internal Medicine; Referring Provider Internal Medicine Cardiovascular Disease; Visit Provider Internal Medicine Cardiovascular Disease
DX: I48.0 Paroxysmal atrial fibrillation (principal); Z79.01 Long term (current) use of anticoagulants
CPT/HCPCS: 36415; 80048; 83735; 84443; 85027; 85610

== ENCOUNTER 2023-04-06 10:29 | Outpatient (RCR) | payer MEDICARE, MEDICAID, SELFPAY ==
[2023-02-20 00:14] VITALS: BMI 39.1
[2023-04-06 11:24] LABS: International Normalized Ratio 2.3; Prothrombin Time (Protime)PT. 25.7 SECONDS (11.7-14.9)
== END 2023-04-06 18:00 | disposition home or self-care (01) ==
LOC: LAB 10:29
PROVIDERS: Family Provider Internal Medicine; PCP Internal Medicine; Referring Provider Internal Medicine Cardiovascular Disease; Visit Provider Internal Medicine Cardiovascular Disease
DX: Z79.01 Long term (current) use of anticoagulants; I48.0 Paroxysmal atrial fibrillation
CPT/HCPCS: 36415; 85610

== ENCOUNTER 2023-05-14 14:10 | Outpatient (RCR) | payer MEDICARE, MEDICAID, SELFPAY ==
[2023-04-22 01:46] VITALS: BMI 39.1
[2023-05-04 10:57] LABS: Absolute Lymphocyte Count 1.26 X10^3/uL (0.83-4.51); Absolute Neutrophil Count 4.9 X10^3/uL (2.0-7.7); Basophil# 0.04 X10^3/uL; Basophil% 0.6 % (0-1); Eosinophils% 1.5 % (0-5); Hematocrit 39.3 % (37-47); Hemoglobin 12.2 g/dL (12.0-15.0); Lymphocyte # 1.26 X10^3/ul (0.83-4.51); Lymphocyte % 18.4 % (19-41); Mean Corpuscular Volume 93.3 fL (81-99); Mean Platelet Vol. 10.1 fl (6.2-12.0); Monocyte# 0.49 X10^3/uL; Monocyte% 7.2 % (0-10); NRBC Flagged by Analyzer 0 % (0-5); Neutrophil # 4.92 X10^3/uL (2.7-7.7); Neutrophil % 71.9 % (47-70); Platelet Count 356 K/mm3 (150-450); RBC Distribution Width CV 14.6 % (11.6-14.6); RBC Distribution Width SD 50.1 fl (35.1-43.9); Red Blood Count 4.21 M/mm3 (4.2-5.4); White Blood Count 6.8 K/mm3 (4.4-11.0)
[2023-05-04 11:23] LABS: International Normalized Ratio 3.7; Prothrombin Time (Protime)PT. 37.1 SECONDS (11.7-14.9)
[2023-05-04 11:29] LABS: Anion Gap 2 (5-15); BUN 13 mg/dL (7-18); BUN/Creat Ratio 11.2 RATIO (10-20); Calcium,Total 9.1 mg/dL (8.5-10.1); Chloride 108 mmol/L (98-107); Creatinine, Serum 1.16 mg/dL (0.55-1.02); EST Glomerular Filtration Rate 51 mL/min (>60); Est Glom Filt Rate - Afr Amer 62 mL/min (>60); Glucose 94 mg/dL (74-106); Magnesium 2.3 mg/dL (1.6-2.6); Potassium 4.1 mmol/L (3.5-5.1); Sodium Level 141 mmol/L (136-145); Thyroid Stim Hormone (TSH) 2.39 uIU/mL (0.358-3.74)
[2023-05-14 14:55] LABS: International Normalized Ratio 2.9; Prothrombin Time (Protime)PT. 30.4 SECONDS (11.7-14.9)
== END 2023-05-14 18:00 | disposition home or self-care (01) ==
LOC: LAB 14:10
PROVIDERS: Nurse Practitioner Gerontology; Family Provider Internal Medicine; PCP Internal Medicine; Referring Provider Internal Medicine Cardiovascular Disease; Visit Provider Internal Medicine Cardiovascular Disease
DX: Z79.01 Long term (current) use of anticoagulants (principal); I48.0 Paroxysmal atrial fibrillation
CPT/HCPCS: 36415; 80048; 83735; 84443; 85025; 85610

== ENCOUNTER 2023-08-01 13:31 | Outpatient (RCR) | payer MEDICARE, MEDICAID, SELFPAY ==
[2023-05-22 22:45] VITALS: BMI 39.1
[2023-08-01 14:19] LABS: International Normalized Ratio 1.4; Prothrombin Time (Protime)PT. 17.5 SECONDS (11.7-14.9)
== END 2023-08-01 18:00 | disposition home or self-care (01) ==
LOC: LAB 13:31
PROVIDERS: Family Provider Internal Medicine; PCP Internal Medicine; Referring Provider Internal Medicine Cardiovascular Disease; Visit Provider Internal Medicine Cardiovascular Disease
DX: Z79.01 Long term (current) use of anticoagulants (principal); I48.0 Paroxysmal atrial fibrillation
CPT/HCPCS: 36415; 85610

== ENCOUNTER 2023-09-20 13:09 | Outpatient (RCR) | payer MEDICARE, MEDICAID, SELFPAY ==
[2023-08-22 21:46] VITALS: BMI 39.1
[2023-09-20 13:53] LABS: Prothrombin Time (Protime)PT. 38.9 SECONDS (11.7-14.9)
== END 2023-09-20 18:00 | disposition home or self-care (01) ==
LOC: LAB 13:09
PROVIDERS: Family Provider Internal Medicine; PCP Internal Medicine; Referring Provider Internal Medicine Cardiovascular Disease; Visit Provider Internal Medicine Cardiovascular Disease
DX: Z79.01 Long term (current) use of anticoagulants (principal); I48.0 Paroxysmal atrial fibrillation
CPT/HCPCS: 36415; 85610

== ENCOUNTER 2023-10-12 11:48 | Outpatient (RCR) | payer MEDICARE, MEDICAID, SELFPAY ==
[2023-09-20 22:15] VITALS: BMI 39.1
[2023-09-27 13:27] LABS: International Normalized Ratio 3.7; Prothrombin Time (Protime)PT. 36.3 SECONDS (11.7-14.9)
[2023-10-12 12:39] LABS: International Normalized Ratio 3.1
== END 2023-10-20 18:00 | disposition home or self-care (01) ==
LOC: LAB 11:48
PROVIDERS: Family Provider Internal Medicine; PCP Internal Medicine; Referring Provider Internal Medicine Cardiovascular Disease; Visit Provider Internal Medicine Cardiovascular Disease
DX: Z79.01 Long term (current) use of anticoagulants (principal); I48.0 Paroxysmal atrial fibrillation
CPT/HCPCS: 36415; 85610

== ENCOUNTER 2023-10-22 14:00 | Outpatient (RCR) | payer MEDICARE, MEDICAID, SELFPAY ==
[2023-10-20 21:35] VITALS: BMI 39.1
[2023-10-22 15:05] LABS: International Normalized Ratio 2.5; Prothrombin Time (Protime)PT. 26.7 SECONDS (11.7-14.9)
== END 2023-11-20 22:37 | disposition home or self-care (01) ==
LOC: LAB 14:00
PROVIDERS: Family Provider Internal Medicine; PCP Internal Medicine; Referring Provider Internal Medicine Cardiovascular Disease; Visit Provider Internal Medicine Cardiovascular Disease
DX: Z79.01 Long term (current) use of anticoagulants (principal); I48.0 Paroxysmal atrial fibrillation
CPT/HCPCS: 36415; 85610

== ENCOUNTER 2023-12-21 13:30 | Outpatient (RCR) | payer MEDICARE, MEDICAID, SELFPAY ==
[2023-11-20 22:38] VITALS: BMI 39.1
[2023-11-27 15:23] LABS: International Normalized Ratio 1.5; Prothrombin Time (Protime)PT. 18.2 SECONDS (11.7-14.9)
[2023-12-14 09:40] LABS: International Normalized Ratio 3.1; Prothrombin Time (Protime)PT. 31.7 SECONDS (11.7-14.9)
[2023-12-21 16:34] LABS: Prothrombin Time (Protime)PT. 40.9 SECONDS (11.7-14.9)
[2023-12-21 16:39] LABS: International Normalized Ratio 4.3
== END 2023-12-21 18:00 | disposition home or self-care (01) ==
LOC: LAB 13:30
PROVIDERS: Family Provider Internal Medicine; PCP Internal Medicine; Referring Provider Internal Medicine Cardiovascular Disease; Visit Provider Internal Medicine Cardiovascular Disease
DX: Z79.01 Long term (current) use of anticoagulants (principal); I48.0 Paroxysmal atrial fibrillation
CPT/HCPCS: 36415; 85610

== ENCOUNTER 2023-12-22 14:47 | Emergency (ER) | payer MEDICARE, MEDICAID, SELFPAY ==
[2023-12-22 14:48] VITALS: BP 123/81; PULSE 82; RESP 18; TEMP 36.6; O2SAT 98; BMI 31.4
--- NOTE | 2023-12-22 15:05 | CT_ITS ---
EXAMINATION : Head CT w/out contrast HISTORY : dizzy COMPARISON : None. TECHNIQUE : Multiple contiguous axial images were obtained from the skull base to the vertex without intravenous contrast. A radiation dose optimization technique was used for this scan. FINDINGS : The ventricles and sulci are normal in size. There is no evidence for acute intracranial hemorrhage, mass effect, or midline shift. There is no extra-axial fluid collection. There is normal joshi-white differentiation, without CT evidence of acute ischemia or infarct. The skull base and calvarium are unremarkable. The orbits are unremarkable. The paranasal sinuses are clear. The mastoid air cells are well-aerated. The soft tissues are unremarkable. CT/Brain/Head without Contrast IMPRESSION: No acute intracranial abnormality. Electronically Signed: Kimani Bocanegra MD at 16:43 EDT ,
--- NOTE | 2023-12-22 15:05 | EKG12_ITS ---
Test Reason : DIZZINESS Blood Pressure : / mmHG Vent. Rate : 082 BPM Atrial Rate : 082 BPM P-R Int : 206 ms QRS Dur : 086 ms QT Int : 364 ms P-R-T Axes : 034 004 096 degrees QTc Int : 425 ms Normal sinus rhythm Low voltage QRS T wave abnormality, consider anterolateral ischemia Abnormal ECG Confirmed by NALDO POWER, TACHO ([id number]), newspaper or periodical editor MANUEL CH ([id number]) on 12/24/2023 6:55:27 AM Referred By: Confirmed By:TACHO HITCHCOCK MD
--- NOTE | 2023-12-22 15:06 | EDS_ITS ---
<Statement entered by Lana Kitchen MD - 12/22/23 18:59> I have personally performed a face to face assessment of the patient and have reviewed the ISIAH Note. Patient presents secondary to dizziness with syncope/near syncope. She reports for the past 2 months has been having episodes of lightheadedness and some spinning sensation. She states her legs will give out on her. She has had 1 episode where she did lose consciousness along with several episodes with near syncope. She states when this occurs she will get a full bubble sensation in her upper abdomen and a warm sensation over her body. She will have palpitations at the same time. She did have a recent medication change and assumed that this was causing the symptoms. After a week or so it started to i mprove so she did not think much of it but now over the past 3 weeks symptoms are worsening again. She did have her INR checked yesterday and it was noted to be high. She did hold her Coumadin last night. Patient sitting upright in bed no acute distress. Alert and nontoxic-appearing. Head and neck examination unremarkable. Heart is regular rate and rhythm. Lung sounds are clear. Abdomen soft and nontender. Neuro exam is unremarkable. 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 CBC and chemistry studies are obtained and unremarkable. INR is supratherapeutic at 4.3. Troponin is less than 3. CT s can of the brain reveals no acute abnormalities. Two-view chest x-ray per my interpretation reveals chronic changes with no focal infiltrate. Radiology interpretation reviewed and agrees. EKG is sinus rhythm at 82 bpm with no signs of ischemia. It appears grossly unchanged when compared to prior study from April of last year. Patient's story is certainly concerning. She presents on a Sunday evening when I know we will not be able to perform an echocardiogram tomorrow. With her having ongoing symptoms for 2 months, we did speak with cardiology and she will be placed on a 48-hour Holter monitor. Patient advised to return to the emergency room for any worsening symptoms. She voices understanding and agreement. Her cardiology office has already given her instructions on holding her Coumadin. HPI History of Present Illness Chief Complaint: Syncope Narrative Narrative: Patient is a 58-year-old female with history of atrial fibrillation, chronic dizziness, anxiety, depression, hypertension hyperlipidemia on Coumadin who presents to the emergency department for dizziness, chest pressure, near syncope. Patient states that she has been dizzy, having near syncopal episodes over the last 2 months. Patient states that over the last month, she has been having rushing to her chest when she is having the symptoms. Patient states that her mother has been for 10 years, she states over the last 2 weeks, she has been having smells her mother who is perfumed. Patient thinks that this is a sign that she needs to be checked out for her heart. Patient is ambulatory. Patient states that she describes a dizzy of room spinning however feel like she is going to pass out. She states she has vertigo and this is not what vertigo feels like. [facility] Medical History Anemia Anxiety and depression Atrial fibrillation with RVR AVM (arteriovenous malformation) Chronic back pain Essential (primary) hypertension Fibromyalgia jail current use of anticoagulant Obesity (BMI 30.0-34.9) Osteoarthritis Paroxysmal atrial fibrillation Tachycardia Home Medications ?Medication ?Instructions ?Recorded ?Last Taken ?Type trazodone 100 mg tablet 100 mg PO QHS PRN Insomnia 11/26/18 05/10/19 23:00 History trospium 20 mg tablet 20 mg PO BID Sensitive Bladder 11/26/18 09/23/20 History Nerves duloxetine 60 mg capsule,delayed 60 mg PO DAILY anxiety/fibromyalgia 12/20/18 09/22/20 History release metformin 500 mg tablet 500 mg PO BID DM 09/23/20 09/23/20 History omeprazole 40 mg capsule,delayed 40 mg PO DAILY GERD 09/23/20 2 Days Ago History release ~09/21/20 atorvastatin 40 mg tablet 40 mg PO DAILY 08/05/21 Unknown History hydroxyzine HCl 25 mg tablet 25 mg PO QHS PRN 08/05/21 Unknown History pregabalin 150 mg capsule 150 mg PO BID 08/05/21 Unknown History semaglutide 1 mg/dose (2 mg/1.5 1 mg subcut QWEEK 01/29/23 Unknown History mL) subcutaneous pen injector (Ozempic) flecainide 100 mg tablet 100 mg PO Q12H #180 tabs 04/27/23 Unknown Rx warfarin 2 mg tablet 2 mg PO .COMPLEX Do not fill until 05/01/23 Unknown Rx Jul 2023: pt still has some #90 tabs propranolol 80 mg capsule,24 80 mg PO DAILY #180 caps 09/25/23 Unknown Rx hr,extended release Allergy/AdvReac Type Severity Reaction Status Date / Time meperidine (From Demerol) Allergy Vomiting Verified 12/22/23 14:48 Penicillins (PCN) Allergy Unknown Verified 12/22/23 14:48 adhesive tape AdvReac Hives Verified 12/22/23 14:48 ciprofloxacin (From Cipro) AdvReac Hives Verified 12/22/23 14:48 floxacillin AdvReac Vomiting Verified 12/22/23 14:48 Sulfa (Sulfonamide AdvReac Rash Verified 12/22/23 14:48 Antibiotics) Family History (Reviewed 04/27/23 @ 13:06 by Meredith Silva [employer]PSC[employer] SECURITY OFFICER, [employer]ALE SECURITY OFFICER-C) Mother CAD (coronary artery disease) Grandmother CAD (coronary artery disease) Sister Aneurysm Breast cancer Surgical History (Reviewed 04/27/23 @ 13:06 by Meredith Silva [employer]PSC[employer] SECURITY OFFICER, [employer]PSCALE SECURITY OFFICER-C) History of left heart catheterization (05/03/21) Social History (Reviewed 04/27/23 @ 13:06 by Meerdith Silva [employer]PSCALE SECURITY OFFICER, [employer]PSCALE SECURITY OFFICER-C) Smoking Status: Never smoker ROS ROS ED ROS Narrative Constitutional: Negative for fever, chills, weight loss, weakness Eyes: Negative for vision loss, vision change, double vision ENT: Negative for any sore throat, ear pain, congestion Cardiovascular: Negative for any chest pain, palpitations. Positive for chest pain Respiratory: Negative for any cough, sputum production, hemoptysis, dyspnea, dyspnea on exertion, orthopnea Gastrointestinal: Negative for any abdominal pain, nausea, vomiting, diarrhea, constipation, blood in stool, blood in vomit : Negative for any urinary frequency, dysuria, retention, blood in urine Muscle skeletal: Negative for any neck pain, back pain Neurological: Negative for any headache. Positive for dizziness, near syncope Skin: Negative for any rashes, itching, abrasions, lacerations Psychiatric: Negative for any depression, anxiety, stress, suicidal ideation, homicidal ideation Hematologic: Negative for any excessive bruising, easy bleeding EXAM Physical Exam Narrative Exam Narrative: Vital signs reviewed. HEET: Head normocephalic atraumatic, TMs both are cerumen impacted. Posterior pharynx is clear, moist mucous membranes. Nares clear bilaterally. Neck: Supple with no lymphadenopathy or tenderness. No signs of meningismus. Cardiac: Regular rate and rhythm no murmurs gallops or rubs, equal peripheral pulses bilaterally. Respiratory: Lungs clear to auscultation bilaterally. No chest tenderness. Abdomen: Soft, nontender, nondistended. No abdominal bruit or pulsatile masses. No hepatosplenomegaly Extremities: No peripheral edema, no signs of gross trauma or deformity. Active full range of motion of all extremities. Neuro: Cranial nerves II through XII intact, no focal neurological deficits. Skin: Clean dry and intact with no rash, purpura, petechiae, vesicles or pustules. Backs/flank: No CVA tenderness, no midline spinal tenderness, no deformity. Psych: Normal mood and affect. No SI, HI or acute psychosis. Const Vital Signs: 12/22/23 14:48 12/22/23 15:30 12/22/23 15:51 Temperature 98 F Temperature Source Temporal Pulse Rate 82 Pulse Rate [Lying] 85 Pulse Rate [Sitting (for 1 minute prior to obtaining)] 82 Pulse Rate [Standing (for 1 minute prior to obtaining)] 80 Respiratory Rate 18 Respiratory Effort Normal Non-Labored Respiratory Pattern Normal Blood Pressure 123/81 H Blood Pressure [Lying] 101/75 Blood Pressure [Sitting (for 1 minute prior to obtaining)] 142/103 H Blood Pressure [Standing (for 1 minute prior to obtaining)] 118/77 Blood Pressure Mean 95 Blood Pressure Mean [Lying] 83 Blood Pressure Mean [Sitting (for 1 minute prior to obtaining)] 116 Blood Pressure Mean [Standing (for 1 minute prior to obtaining)] 90 Pulse Ox 98 Oxygen Delivery Method Room Air 12/22/23 16:50 Temperature Temperature Source Pulse Rate 79 Pulse Rate [Lying] Pulse Rate [Sitting (for 1 minute prior to obtaining)] Pulse Rate [Standing (for 1 minute prior to obtaining)] Respiratory Rate 17 Respiratory Effort Respiratory Pattern Blood Pressure Blood Pressure [Lying] Blood Pressure [Sitting (for 1 minute prior to obtaining)] Blood Pressure [Standing (for 1 minute prior to obtaining)] Blood Pressure Mean Blood Pressure Mean [Lying] Blood Pressure Mean [Sitting (for 1 minute prior to obtaining)] Blood Pressure Mean [Standing (for 1 minute prior to obtaining)] Pulse Ox 92 Oxygen Delivery Method Room Air Positive well nourished and well developed General Appearance ED: well developed MDM MDM Lab Data Labs: Laboratory Results - last 24 hr 12/22/23 15:20 WBC 5.9 RBC 4.08 L Hgb 12.0 Hct 37.3 MCV 91.4 MCH 29.4 MCHC 32.2 RDW Std Deviation 47.4 H RDW Coeff of Prabhu 13.9 Plt Count 292 MPV 10.1 Immature Gran % (Auto) 0.200 Neut % (Auto) 59.4 Lymph % (Auto) 31.2 [place] % (Auto) 7.5 Eos % (Auto) 1.4 Baso % (Auto) 0.3 Absolute Neuts (auto) 3.5 Absolute Lymphs (auto) 1.84 Nucleated RBC % 0 PT 41.0 H INR 4.3 H* Sodium 141 Potassium 3.9 Chloride 107 Carbon Dioxide 25.0 Anion Gap 9 BUN 13 Creatinine 1.05 H Estim Creat Clear Calc 69.32 Est GFR (MDRD) Af Amer 70 Est GFR (MDRD) Non-Af 58 L BUN/Creatinine Ratio 12.4 Glucose 93 Calcium 8.7 Troponin I High Sens < 3 L Radiography Diagnostic Testing: Clinical Impression(s) from Imaging Studies Brain CT 12/22/23 15:05 IMPRESSION: No acute intracranial abnormality. Electronically Signed: Kimani Bocanegra MD at 16:43 EDT , Chest X-Ray 12/22/23 16:02 IMPRESSION: Bibasilar streaky opacities may represent atelectasis versus infection. Electronically Signed: Kimani Bocanegra MD at 16:46 EDT Reading Location ID and State: [id number] / [place] Tel , Service support , EKG Normal sinus rhythm: Attestation: I personally reviewed and interpreted this EKG as follows: Interpretation: Sinus Rhythm Comments: Normal sinus rhythm, rate of 82 bpm, IL interval 206 ms, QRS duration 86 ms, no acute ST elevation, no acute infarct noted. Treatment and Re-Evaluation :: Differential diagnosis includes however is not limited to: Benign positional peripheral vertigo, brain mass, orthostatic hypotension, atrial fibrillation, ACS, MO, arrhythmia Patient appears to be in no obvious distress, vital signs are stable, patient appears nontoxic. Present to the emergency department for multiple plaints. For 2 months, patient states has been dealing with both dizziness which she describes as room spinning as well as feeling lightheaded and near syncopal. Patient states she did fall down 2 months ago secondary to feeling so dizzy. Patient is also having some neurological signs such as smelling her mother's perfume, her mother has been for 10 years. Patient will receive a full cardiac workup as well as a CT scan of the brain. All radiologic examinations were read, reviewed by the emergency department attending. From these reads, a plan of care will be put in place. Patient CT scan of the brain shows no acute intracranial abnormality. Patient's chest x-ray shows bibasilar streaky opacities which may represent atelectasis versus infection. I do believe that this is more of a atelectasis, patient has no other cough or infectious-like symptoms. Patient's laboratory values showed a normal CBC, patient's PT was elevated at 41.0 with an INR of 4.3, this is critical high however patient is aware of this. Patient chemistries were unremarkable, troponin was negative. At this time I spoke with the patient, the patient is ambulatory to the bathroom with any difficulty, vital signs remained stable here. I spoke with cardiology, we discussed different options such as admission versus 48-hour Holter monitor. At this time, I do believe the patient stable for 48-hour Holter monitor, it is a Sunday. Patient was instructed if she has any more dizzy spells, near syncopal episode she will return back to the emergency department. She is agreeable with this, all questions were answered, patient stable for discharge. Discharge Plan Triage Chief Complaint: Syncope ED Midlevel Provider: Noam Upton ED Provider: Lana Kitchen Dx/Rx/DC Orders Clinical Impression: Near syncope, Palpitations Instructions: Causes of Syncope, ED Palpitations, ED Near-Fainting, Uncertain Cause Prescriptions: No Action atorvastatin 40 mg tablet 40 mg PO DAILY pregabalin 150 mg capsule 150 mg PO BID hydroxyzine HCl 25 mg tablet 25 mg PO QHS PRN flecainide 100 mg tablet 100 mg PO Q12H Qty: 180 3RF trospium 20 MG tablet 20 mg PO BID Patient Comments: Sensitive Bladder Nerves trazodone 100 MG tablet 100 mg PO QHS PRN (Reason: Insomnia) Patient Comments: Insomnia duloxetine 60 mg capsule,delayed release(DR/EC) 60 mg PO DAILY Patient Comments: anxiety/fibromyalgia metformin 500 MG tablet 500 mg PO BID omeprazole 40 MG capsule,delayed release(DR/EC) 40 mg PO DAILY Ozempic 1 mg/dose (2 mg/1.5 mL) pen injector 1 mg subcut QWEEK warfarin 2 mg tablet 2 mg PO .COMPLEX Qty: 90 3RF Protocol: Dose Management Condition: Sunday Dose/Route: 1 mg Instruction: 0.5 x 2 mg tablets Condition: Sunday Dose/Route: 1 mg Instruction: 0.5 x 2 mg tablets Condition: Sunday Dose/Route: 2 mg Instruction: 1 x 2 mg tablet Condition: Sunday Dose/Route: 2 mg Instruction: 1 x 2 mg tablet Condition: Dose/Route: 2 mg Instruction: 1 x 2 mg tablet Condition: Sunday Dose/Route: 1 mg Instruction: 0.5 x 2 mg tablets Condition: Sunday Dose/Route: 1 mg Instruction: 0.5 x 2 mg tablets Protocol Text: Adjustment Start Date: Sunday12/14/23 INR Value: 3.1 INR Date: 12/14/23 Recheck Date: 12/28/23 Rx Instructions: Take a whole tablet on , , and 1/2 tablet all other days of the week, or as directed. Please give 90 tablets as dose changes often. propranolol 80 mg capsule,extended release 24 hr 80 mg PO DAILY Qty: 180 3RF Primary Care Provider: Fátima Rodriguez Referrals: Fátima Rodriguez MD [Primary Care Provider] - Misael Bryan MD [Med Staff - Active Staff] - Activity Restrictions/Additional Instructions: Please follow-up with the instructions. You need to follow-up with cardiology. If you have any other new or stable episodes, please return back here. Print Language: Spanish Disposition Disposition: Home, Self Care
[2023-12-22] MEDS: 0.9% Normal Saline (1000mL) 1,000 ML 999 ML IV (15:27)
[2023-12-22 15:35] LABS: Absolute Lymphocyte Count 1.84 X10^3/uL (0.83-4.51); Absolute Neutrophil Count 3.5 X10^3/uL (2.0-7.7); Basophil# 0.02 X10^3/uL; Basophil% 0.3 % (0-1); Eosinophil# 0.08 X10^3/uL; Eosinophils% 1.4 % (0-5); Hematocrit 37.3 % (37-47); Lymphocyte # 1.84 X10^3/ul (0.83-4.51); Lymphocyte % 31.2 % (19-41); Mean Corp Hgb Conc 32.2 g/dL (32-36); Mean Corpuscular Hgb 29.4 pg (27.0-32.0); Mean Corpuscular Volume 91.4 fL (81-99); Mean Platelet Vol. 10.1 fl (6.2-12.0); Monocyte# 0.44 X10^3/uL; Monocyte% 7.5 % (0-10); NRBC Flagged by Analyzer 0 % (0-5); Neutrophil # 3.51 X10^3/uL (2.7-7.7); Neutrophil % 59.4 % (47-70); Platelet Count 292 K/mm3 (150-450); RBC Distribution Width CV 13.9 % (11.6-14.6); RBC Distribution Width SD 47.4 fl (35.1-43.9); Red Blood Count 4.08 M/mm3 (4.2-5.4); White Blood Count 5.9 K/mm3 (4.4-11.0)
[2023-12-22 15:49] LABS: Anion Gap 9 (5-15); BUN 13 mg/dL (7-18); BUN/Creat Ratio 12.4 RATIO (10-20); Calcium,Total 8.7 mg/dL (8.5-10.1); Chloride 107 mmol/L (98-107); Creatinine, Serum 1.05 mg/dL (0.55-1.02); EST Glomerular Filtration Rate 58 mL/min (>60); Est Glom Filt Rate - Afr Amer 70 mL/min (>60); Estimated Creatinine Clearance 69.32 ml/min; Glucose 93 mg/dL (74-106); Potassium 3.9 mmol/L (3.5-5.1); Sodium Level 141 mmol/L (136-145); Troponin-I HS < 3 pg/mL (3.0-54.0)
[2023-12-22 15:51] VITALS: BP 101/75; BP 118/77; BP 142/103; PULSE 80; PULSE 82; PULSE 85
[2023-12-22 15:56] LABS: International Normalized Ratio 4.3
--- NOTE | 2023-12-22 16:02 | RAD_ITS ---
INDICATION: chest pain EXAMINATION/TECHNIQUE: X-RAY - XR Chest 2 Views COMPARISON: 09/23/2020. FINDINGS: Bibasilar streaky opacities. Tortuous and calcified thoracic aorta. The heart is mildly enlarged. No pleural effusion or pneumothorax. Degenerative changes of the thoracic spine. RAD/Chest PA and Lateral IMPRESSION: Bibasilar streaky opacities may represent atelectasis versus infection. Electronically Signed: Kimani Bocanegra MD at 16:46 EDT ,
[2023-12-22 16:50] VITALS: PULSE 79; RESP 17; O2SAT 92
== END 2023-12-22 18:45 | disposition home or self-care (01) ==
PROVIDERS: Nurse Practitioner; Emergency Provider Emergency Medicine; PCP Internal Medicine; Visit Provider Emergency Medicine
DX: R55 Syncope and collapse (principal); I48.0 Paroxysmal atrial fibrillation; F41.9 Anxiety disorder, unspecified; I10 Essential (primary) hypertension; E78.5 Hyperlipidemia, unspecified; F32.A Depression, unspecified; R00.2 Palpitations; Z79.01 Long term (current) use of anticoagulants
CPT/HCPCS: 70450; 71046; 80048; 84484; 85025; 85610; 93005; 93225; 93226; 96360; 99283; A4216

== ENCOUNTER → 2023-12-22 | Outpatient (CLI) | payer MEDICARE, MEDICAID, SELFPAY | END | disposition home or self-care (01) | LOC: CVS 18:16 | PROVIDERS: PCP Internal Medicine; Referring Provider Internal Medicine Interventional Cardiology; Visit Provider Internal Medicine Interventional Cardiology | DX: R00.2 Palpitations (principal) | CPT/HCPCS: 93225; 93226 ==

== ENCOUNTER 2023-12-31 11:22 | Outpatient (RCR) | payer MEDICARE, MEDICAID, SELFPAY ==
[2023-12-24 09:13] VITALS: BMI 39.1
[2023-12-31 11:59] LABS: International Normalized Ratio 2.5; Prothrombin Time (Protime)PT. 26.6 SECONDS (11.7-14.9)
== END 2023-12-31 18:00 | disposition home or self-care (01) ==
LOC: LAB 11:22
PROVIDERS: Family Provider Internal Medicine; PCP Internal Medicine; Referring Provider Internal Medicine Cardiovascular Disease; Visit Provider Internal Medicine Cardiovascular Disease
DX: Z79.01 Long term (current) use of anticoagulants (principal); I48.0 Paroxysmal atrial fibrillation
CPT/HCPCS: 36415; 85610

== ENCOUNTER 2024-02-04 11:55 | Outpatient (RCR) | payer MEDICARE, MEDICAID, SELFPAY ==
[2024-01-20 22:30] VITALS: BMI 39.1
[2024-01-23 14:27] LABS: International Normalized Ratio 1.5; Prothrombin Time (Protime)PT. 18.1 SECONDS (11.7-14.9)
[2024-01-28 12:47] LABS: International Normalized Ratio 1.4; Prothrombin Time (Protime)PT. 16.7 SECONDS (11.7-14.9)
[2024-02-04 12:54] LABS: Prothrombin Time (Protime)PT. 22.6 SECONDS (11.7-14.9)
== END 2024-02-20 18:00 | disposition home or self-care (01) ==
LOC: LAB 11:55
PROVIDERS: Family Provider Internal Medicine; PCP Internal Medicine; Referring Provider Internal Medicine Cardiovascular Disease; Visit Provider Internal Medicine Cardiovascular Disease
DX: Z79.01 Long term (current) use of anticoagulants (principal); I48.0 Paroxysmal atrial fibrillation
CPT/HCPCS: 36415; 85610

== ENCOUNTER 2024-03-27 12:27 | Outpatient (RCR) | payer MEDICARE, MEDICAID, SELFPAY ==
[2024-02-20 20:38] VITALS: BMI 39.1
[2024-03-27 13:33] LABS: International Normalized Ratio 2.8; Prothrombin Time (Protime)PT. 29.1 SECONDS (11.7-14.9)
== END 2024-03-27 18:00 | disposition home or self-care (01) ==
LOC: LAB 12:27
PROVIDERS: Family Provider Internal Medicine; PCP Internal Medicine; Referring Provider Internal Medicine Cardiovascular Disease; Visit Provider Internal Medicine Cardiovascular Disease
DX: Z79.01 Long term (current) use of anticoagulants (principal); I48.0 Paroxysmal atrial fibrillation
CPT/HCPCS: 36415; 85610

== ENCOUNTER 2024-04-13 10:48 | Emergency (ER) | payer MEDICARE, MEDICAID, SELFPAY ==
[2024-04-13 10:48] VITALS: BP 109/77; PULSE 86; RESP 14; TEMP 36.8; O2SAT 98; BMI 30.1
--- NOTE | 2024-04-13 11:36 | CT_ITS ---
HISTORY: syncope vs sz. TECHNIQUE: Multiple axial images were obtained of the head without intravenous contrast. A radiation dose optimization technique was used for this scan. 238 images. COMPARISON: 12/22/2023. FINDINGS: BRAIN PARENCHYMA: No significant attenuation abnormality. No acute intra-axial hemorrhage. Mild basal ganglia and left cerebellar calcifications again seen. CSF SPACES: Cerebral ventricles, cortical sulci, and other extra-axial CSF spaces within normal limits in size for age. No midline shift or other significant mass effect. No acute extra-axial hemorrhage. OTHER: Intact calvarium. Left maxillary sinus mucous retention cyst. Unremarkable orbits. CT/Brain/Head without Contrast IMPRESSION: No acute intracranial process identified. Electronically Signed: Monica Mcdonough MD at 12:40 EDT ,
--- NOTE | 2024-04-13 11:36 | EKG12_ITS ---
Test Reason : SYNCOPE Blood Pressure : / mmHG Vent. Rate : 083 BPM Atrial Rate : 083 BPM P-R Int : 228 ms QRS Dur : 094 ms QT Int : 372 ms P-R-T Axes : 049 001 103 degrees QTc Int : 437 ms Sinus rhythm with 1st degree A-V block Low voltage QRS T wave abnormality, consider anterolateral ischemia Abnormal ECG Confirmed by Gary Doll ([id number]), restaurant expeditor MANUEL CH ([id number]) on 04/15/2024 9:29:01 AM Referred By: Confirmed By:Gary Doll
--- NOTE | 2024-04-13 11:37 | RAD_ITS ---
HISTORY: fall. TECHNIQUE: XR Hip Unilateral with Pelvis when performed; 2-3 Views. COMPARISON: None. FINDINGS: OSSEOUS STRUCTURES: No acute displaced fracture identified. Note that overlapping bowel shadows may obscure osseous detail. Mineralization unremarkable. JOINT SPACES: No dislocation. Joint spaces maintained. RAD/HIP, UNI W/ Pelvis 2-3 Views IMPRESSION: No acute displaced fracture or dislocation identified. Electronically Signed: Monica Mcdonough MD at 12:38 EDT ,
--- NOTE | 2024-04-13 11:38 | ED.VIS.FALL ---
HPI HPI - Fall History of Present Illness Chief Complaint: Fall Detail of Chief Complaint: Recurrent falls in the last 4 to 5 weeks. Informant: patient Occured/Mechanism Occurred: Today Mechanism/Context: Yes same level fall and Yes prodromal Usually ambulates: Without assistance Pain/Injury Pain Location: lower extremity Quality of Pain: Dull Current Severity: Mild Maximum Severity: Mild Associated Symptoms Associated Symptoms: Positive for Loss of consciousness; Negative for Parasthesias, Weakness, Loss of function or Inability to ambulate Narrative Narrative: 58-year-old female history of AVMs, hypertension, A-fib on Coumadin. Anemia. Has had multiple falls in the last 4 weeks she has had about 5 falls. Thinks she has a prodromal symptom where she gets weak and may lose conscious before she falls. Said there are very brief episodes that last seconds. She has not been evaluated for this as of yet. Said she had some mild right hip pain. She had an episode today where she fell at home around 10 AM. Denies any recent illness. Denies any headache or chest pain. No vomiting or diarrhea. 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 Osteoarthritis Obesity (BMI 30.0-34.9) Fibromyalgia Chronic back pain Anxiety and depression AVM (arteriovenous malformation) Atrial fibrillation with RVR Home Medications ?Medication ?Instructions ?Recorded ?Last Taken ?Type trazodone 100 mg tablet 100 mg PO QHS PRN Insomnia 11/26/18 05/10/19 23:00 History trospium 20 mg tablet 20 mg PO BID Sensitive Bladder 11/26/18 09/23/20 History Nerves duloxetine 60 mg capsule,delayed 60 mg PO DAILY anxiety/fibromyalgia 12/20/18 09/22/20 History release metformin 500 mg tablet 500 mg PO BID DM 09/23/20 09/23/20 History omeprazole 40 mg capsule,delayed 40 mg PO DAILY GERD 09/23/20 2 Days Ago History release ~09/21/20 atorvastatin 40 mg tablet 40 mg PO DAILY 08/05/21 Unknown History hydroxyzine HCl 25 mg tablet 25 mg PO QHS PRN 08/05/21 Unknown History pregabalin 150 mg capsule 150 mg PO BID 08/05/21 Unknown History semaglutide 1 mg/dose (2 mg/1.5 1 mg subcut QWEEK 01/29/23 Unknown History mL) subcutaneous pen injector (Ozempic) flecainide 100 mg tablet 100 mg PO Q12H #180 tabs 04/27/23 Unknown Rx warfarin 2 mg tablet 2 mg PO .COMPLEX Do not fill until 05/01/23 Unknown Rx Jul 2023: pt still has some #90 tabs propranolol 80 mg capsule,24 80 mg PO DAILY #180 caps 09/25/23 Unknown Rx hr,extended release Allergy/AdvReac Type Severity Reaction Status Date / Time meperidine (From Demerol) Allergy Vomiting Verified 04/13/24 10:48 Penicillins (PCN) Allergy Unknown Verified 04/13/24 10:48 adhesive tape AdvReac Hives Verified 04/13/24 10:48 ciprofloxacin (From Cipro) AdvReac Hives Verified 04/13/24 10:48 floxacillin AdvReac Vomiting Verified 04/13/24 10:48 Sulfa (Sulfonamide AdvReac Rash Verified 04/13/24 10:48 Antibiotics) Family History Mother CAD (coronary artery disease) Grandmother CAD (coronary artery disease) Sister Aneurysm Breast cancer Surgical History History of left heart catheterization (05/03/21) Social History Smoking Status: Never smoker ROS ROS ED ROS Narrative Denies recent illness. Constitutional Constitutional ED: Denies fever(s) Eyes Eyes: Denies blurry vision ENT ENT ED: Denies ear pain Cardiovascular Cardiovascular: Denies chest pain Respiratory/Chest Respiratory/Chest: Denies cough Gastrointestinal Gastrointestinal: Denies abdominal pain, diarrhea, melena, nausea or vomiting Genitourinary Genitourinary ED: Denies dysuria or hematuria Musculoskeletal Musculoskeletal: Denies arthralgias Integumentary Denies abscess Neurologic Neurologic: Denies headache(s) Psychiatric Psychiatric: Denies anxiety Endocrine Endocrinology: Denies polydipsia Hematologic/Lymphatic Hematologic/Lymphatic: Denies easy bleeding Allergic/Immunologic Allergic/Immunologic ED: Denies mouth swelling EXAM Physical Exam Narrative Exam Narrative: 58-year-old female vital signs are stable afebrile. Pulse ox 98% on room air no signs hypoxia. No distress. Sitting upright in bed. No one else present in room currently. H EENT exam pupils are round reactive light. Extra motions are intact. No signs of trauma. Moist weeks membranes. Neck nontender. Lungs nontender. Chest wall and ribs nontender. Abdomen soft nontender. Pelvic girdle intact. No shortening or rotation either hip. Flexion extension of both hips knees and ankles intact. No deformity or swelling. Dorsi plantarflexion intact. Upper extremities are nontender. 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 Back nontender. No bruising. Neurologically she is awake and alert with no focal motor deficits. Const Vital Signs: 04/13/24 10:48 04/13/24 11:55 04/13/24 12:48 Temperature 98.2 F Temperature Source Temporal Pulse Rate 86 72 Respiratory Rate 14 16 Respiratory Effort Normal Non-Labored Respiratory Depth Normal Respiratory Pattern Irregular Blood Pressure 109/77 130/99 H Blood Pressure Mean 87 109 Pulse Ox 98 98 Oxygen Delivery Method Room Air Room Air CPAP Positive well nourished and well developed; Negative for cachectic, contractures or unkempt General Appearance ED: well developed and NAD; Negative for unkempt, cachectic or contractures Nutritional Appearance: Negative for cachectic HEENT Reports normocephalic atraumatic; Negative for trauma, contusion, hematoma or tenderness Eyes EOMs intact bilaterally General Eye ED: Negative for pale conjunctiva or scleral icterus Neck full ROM, no lymphadenopathy and supple General: Negative for tenderness Chest Wall inspection of chest normal and palpation of chest normal Resp normal respiratory effort, no retractions and clear to auscultation bilaterally Auscultation: Negative for rales, rhonchi, wheezes, diminished lung sounds or other Cardio regular rate, regular rhythm, S1 normal heart sound, S2 normal heart sound and no murmurs Rate: Negative for bradycardia or tachycardic Rhythm: Negative for abnormal rhythm GI non-tender, non-distended and no masses Inspection: Negative for abdominal distention Palpation: soft; Negative for guarding or rebound tenderness present Back/Spine no CVA tenderness General Back: Negative for CVA tenderness Cervical Spine: Negative for cervical spine tenderness Lumbar Spine / Lower Back: Negative for lumbar spinal tenderness Neuro oriented x3, CN's II-XII intact bilaterally, moves all extremities and no focal motor deficits Sensorium / Orientation: alert, oriented to person, oriented to place and oriented to time; Negative for orientation impaired or confused Motor Exam: strength 5/5 throughout Psych mental status grossly normal and thought process normal Appearance: Negative for unkempt Attitude: No agitated Mood & Affect: Negative for depressed, anxious or tearful Skin Lesions: no lesions Rashes: no rashes Trauma: Negative for abrasion MDM MDM MDM Narrative Medical decision making narrative: 58-year-old female history of AVM's on Coumadin. Has been having syncopal and near syncopal episodes where she has had 4-5 falls in the last 4 weeks. No history of seizure activity. She undergo a cardiac workup with a CAT scan of her head due to multiple falls and possible seizures. She is on Coumadin I will get a PT/INR. She does not need any fluids or pain medication. I am obtain an x-ray of her right hip but my suspicion of it being fractured is extremely low because she has no real discomfort to it and there is no deformity or shortening. Repeat exam patient is doing well at 1:47 PM. She had an episode where she was shaking but she was awake alert talking with nurses at the time not felt to be a seizure. Exam unchanged. We went over her normal test including her CAT scan, x-ray and EKG. She will be discharged home with outpatient follow-up. History & Record Review Discussion w/independent historian: Patient Additional record(s) reviewed:: Prior inpatient record, Prior outpatient record, Prior ED visit and Prior labs Lab Data Attestation: I reviewed the patient's lab results. Lab results narrative: CBC normal. White count is 6 H&H 13 and 42. Platelets 342. PT/INR 33 and 3.4 she is on Coumadin. Electrolytes show gap 5. BUN and creatinine of 11 and 1.1. Glucose 103. Troponin 3. Labs: Laboratory Results - last 24 hr 04/13/24 11:52 WBC 6.9 RBC 4.70 Hgb 13.9 Hct 42.8 MCV 91.1 MCH 29.6 MCHC 32.5 RDW Std Deviation 47.3 H RDW Coeff of Prabhu 14.0 Plt Count 342 MPV 10.0 Immature Gran % (Auto) 0.400 Neut % (Auto) 66.0 Lymph % (Auto) 23.9 [place] % (Auto) 8.1 Eos % (Auto) 1.0 Baso % (Auto) 0.6 Absolute Neuts (auto) 4.6 Absolute Lymphs (auto) 1.66 Nucleated RBC % 0 PT 33.8 H INR 3.4 Sodium 140 Potassium 3.9 Chloride 107 Carbon Dioxide 28.0 Anion Gap 5 BUN 11 Creatinine 1.19 H Estim Creat Clear Calc 59.87 Est GFR (MDRD) Af Amer 60 Est GFR (MDRD) Non-Af 50 L BUN/Creatinine Ratio 9.2 L Glucose 103 Calcium 8.9 Troponin I High Sens 3 Radiography Chest X-Ray - ED: 1 View, Read by ED Physician, Read by Radiologist, Normal, Heart, Lungs, Mediastinum, Bony Structures, No Acute Disease and Chronic Changes Diagnostic Testing: Clinical Impression(s) from Imaging Studies Brain CT 04/13/24 11:36 IMPRESSION: No acute intracranial process identified. Electronically Signed: Monica Mcdonough MD at 12:40 EDT , Hip/Pelvis X-Ray 04/13/24 11:37 IMPRESSION: No acute displaced fracture or dislocation identified. Electronically Signed: Monica Mcdonough MD at 12:38 EDT , Chest X-Ray 04/13/24 12:15 IMPRESSION: No acute cardiopulmonary process identified. Electronically Signed: Monica Mcdonough MD at 12:34 EDT , Chest x-ray, portable, single view interpreted both by myself and radiologist shows no acute abnormality. Normal cardiac silhouette. Normal lung greenberg. Chronic changes. Right hip and pelvis x-ray multiple views interpreted myself and the radiologist shows no acute fracture or dislocation. Rhythm Strip Rhythm Strip: Sinus Rhythm Rate: 83 Ectopy: None EKG Initial EKG: Attestation: I personally reviewed and interpreted this EKG as follows: Interpretation: Sinus Rhythm and No Acute Injury Pattern Comments: Normal sinus rhythm rate 83 no acute signs of MS or ischemia. First-degree AV block with a CO interval of 228. Discharge Plan Triage Chief Complaint: Fall ED Provider: Jhonatan Mejia Dx/Rx/DC Orders Clinical Impression: Falls, Chronic anticoagulation, History of atrial fibrillation Instructions: ED Fall with Uncertain Cause Prescriptions: No Action atorvastatin 40 mg tablet 40 mg PO DAILY pregabalin 150 mg capsule 150 mg PO BID hydroxyzine HCl 25 mg tablet 25 mg PO QHS PRN flecainide 100 mg tablet 100 mg PO Q12H Qty: 180 3RF trospium 20 MG tablet 20 mg PO BID Patient Comments: Sensitive Bladder Nerves trazodone 100 MG tablet 100 mg PO QHS PRN (Reason: Insomnia) Patient Comments: Insomnia duloxetine 60 mg capsule,delayed release(DR/EC) 60 mg PO DAILY Patient Comments: anxiety/fibromyalgia metformin 500 MG tablet 500 mg PO BID omeprazole 40 MG capsule,delayed release(DR/EC) 40 mg PO DAILY Ozempic 1 mg/dose (2 mg/1.5 mL) pen injector 1 mg subcut QWEEK warfarin 2 mg tablet 2 mg PO .COMPLEX Qty: 90 3RF Protocol: Dose Management Condition: Sunday Dose/Route: 1 mg Instruction: 0.5 x 2 mg tablets Condition: Sunday Dose/Route: 2 mg Instruction: 1 x 2 mg tablet Condition: Sunday Dose/Route: 2 mg Instruction: 1 x 2 mg tablet Condition: Sunday Dose/Route: 2 mg Instruction: 1 x 2 mg tablet Condition: Dose/Route: 1 mg Instruction: 0.5 x 2 mg tablets Condition: Sunday Dose/Route: 2 mg Instruction: 1 x 2 mg tablet Condition: Sunday Dose/Route: 1 mg Instruction: 0.5 x 2 mg tablets Protocol Text: Adjustment Start Date: 03/27/24 INR Value: 2.8 INR Date: 03/27/24 Recheck Date: 04/26/24 Rx Instructions: Take a whole tablet on , , and 1/2 tablet all other days of the week, or as directed. Please give 90 tablets as dose changes often. propranolol 80 mg capsule,extended release 24 hr 80 mg PO DAILY Qty: 180 3RF Primary Care Provider: Fátima Rodriguez Referrals: Fátima Rodriguez MD [Primary Care Provider] - As soon as possible Activity Restrictions/Additional Instructions: Test including CAT scan, x-ray and EKG look good today. Your Coumadin level is slightly elevatedAt 3.4. I would hold your next dose and then restarted. At your normal levels. And have it rechecked in 1 to 2 weeks. Follow-up with your doctor for further evaluation. Print Language: Georgian Disposition Disposition: Home, Self Care
[2024-04-13 12:00] LABS: Absolute Lymphocyte Count 1.66 X10^3/uL (0.83-4.51); Absolute Neutrophil Count 4.6 X10^3/uL (2.0-7.7); Basophil# 0.04 X10^3/uL; Basophil% 0.6 % (0-1); Eosinophil# 0.07 X10^3/uL; Hematocrit 42.8 % (37-47); Hemoglobin 13.9 g/dL (12.0-15.0); Lymphocyte # 1.66 X10^3/ul (0.83-4.51); Lymphocyte % 23.9 % (19-41); Mean Corp Hgb Conc 32.5 g/dL (32-36); Mean Corpuscular Hgb 29.6 pg (27.0-32.0); Mean Corpuscular Volume 91.1 fL (81-99); Monocyte# 0.56 X10^3/uL; Monocyte% 8.1 % (0-10); NRBC Flagged by Analyzer 0 % (0-5); Neutrophil # 4.58 X10^3/uL (2.7-7.7); Platelet Count 342 K/mm3 (150-450); RBC Distribution Width SD 47.3 fl (35.1-43.9); White Blood Count 6.9 K/mm3 (4.4-11.0)
[2024-04-13 12:08] LABS: International Normalized Ratio 3.4; Prothrombin Time (Protime)PT. 33.8 SECONDS (11.7-14.9)
--- NOTE | 2024-04-13 12:15 | RAD_ITS ---
HISTORY: syncope. TECHNIQUE: XR Chest 1 View. COMPARISON: 12/22/2023. FINDINGS: CARDIOMEDIASTINAL BORDERS: Cardiac silhouette within normal limits in size. Mediastinal contour unremarkable. LUNGS: Unchanged linear bibasilar opacities from atelectasis or scarring. PLEURA: No pleural effusion or pneumothorax seen. OSSEOUS STRUCTURES: Mild degenerative change. RAD/Chest 1 View (Portable) IMPRESSION: No acute cardiopulmonary process identified. Electronically Signed: Monica Mcdonough MD at 12:34 EDT ,
[2024-04-13 12:17] LABS: Anion Gap 5 (5-15); BUN 11 mg/dL (7-18); BUN/Creat Ratio 9.2 RATIO (10-20); Calcium,Total 8.9 mg/dL (8.5-10.1); Chloride 107 mmol/L (98-107); Creatinine, Serum 1.19 mg/dL (0.55-1.02); EST Glomerular Filtration Rate 50 mL/min (>60); Est Glom Filt Rate - Afr Amer 60 mL/min (>60); Estimated Creatinine Clearance 59.87 ml/min; Glucose 103 mg/dL (74-106); Potassium 3.9 mmol/L (3.5-5.1); Sodium Level 140 mmol/L (136-145); Troponin-I HS 3 pg/mL (3.0-54.0)
[2024-04-13 12:48] VITALS: BP 130/99; PULSE 72; RESP 16; O2SAT 98
--- NOTE | 2024-04-13 13:47 | ED.RN ---
Pt called this RN to room stating she was having one of her episodes. Pt with tremors in bilateral extremities, moving lips, squinting eyes. Pt states she has these episodes at home and then passes out. Pt further states it might be my nerves. MD made aware and will evaluate.
[2024-04-13 14:00] VITALS: BP 119/78; PULSE 74; RESP 16; TEMP 36.6; O2SAT 99
== END 2024-04-13 14:38 | disposition home or self-care (01) ==
PROVIDERS: Emergency Provider Emergency Medicine; PCP Internal Medicine; Visit Provider Emergency Medicine
DX: R29.6 Repeated falls (principal); I48.0 Paroxysmal atrial fibrillation; R55 Syncope and collapse; D64.9 Anemia, unspecified; I10 Essential (primary) hypertension; Z79.01 Long term (current) use of anticoagulants; M25.551 Pain in right hip; Z91.81 History of falling; W18.30XA Fall on same level, unspecified, initial encounter
CPT/HCPCS: 70450; 71045; 73502; 80048; 84484; 85025; 85610; 93005; 99284; A4216

== ENCOUNTER → 2024-05-19 | Outpatient (CLI) | payer MEDICARE, MEDICAID, SELFPAY ==
--- NOTE | 2024-05-19 07:57 | CDU_ITS ---
Reason For Study: Syncope Rt. Velocities/BP Lt. Velocities/BP Prox CCA 83.1/29.2 cm/sec. Prox CCA 97.4/34.7 cm/sec. Mid CCA 70.3/26.7 cm/sec. Mid CCA 77.6/35.8 cm/sec. Dist CCA 81.6/32.8 cm/sec. Dist CCA 74.3/34.7 cm/sec. Prox ICA 72.9/22.3 cm/sec. Prox ICA 65.5/32.5 cm/sec. Mid ICA 46.8/20.6 cm/sec. Mid ICA 75.4/39.1 cm/sec. Dist ICA 49.2/27.0 cm/sec. Dist ICA 68.6/34.6 cm/sec. Rt. ICA/CCA = 1.0. Lt. ICA/CCA = 1.0. Prox ECA 46.9/9.1 cm/sec. Prox ECA 83.1/19.3 cm/sec. Rt. Vert. 32.6/12.4 cm/sec. Lt. Vert. 32.5/16.8 cm/sec. Right Extracranial There is intimal thickening but no significant atherosclerotic plaque noted in the right common carotid artery. There is intimal thickening but no significant atherosclerotic plaque noted in the right internal carotid artery. There is intimal thickening but no significant atherosclerotic plaque noted in the right external carotid artery. Antegrade flow is noted in the right vertebral artery. Left Extracranial There is intimal thickening but no significant atherosclerotic plaque noted in the left common carotid artery. There is intimal thickening but no significant atherosclerotic plaque noted in the left internal carotid artery. There is intimal thickening but no significant atherosclerotic plaque noted in the left external carotid artery. Antegrade flow is noted in the left vertebral artery. Procedure Carotid Duplex 53102. This is a Carotid Duplex examination using B-mode, color flow and specral Doppler. The exam was diagnostic. Exam performed in department. VL/Carotid Duplex Ultrasound Interpretation Summary Normal right extracranial internal carotid. Normal left extracranial internal carotid. Patent and antegrade vertebrals bilaterally. Ordering Physician: Meredith Silva Referring Physician: Fátima Rodriguez Performed By: Isiah Youssef RVT
--- NOTE | 2024-05-19 07:57 | ECHOD_ITS ---
Reason For Study: SYNCOPE Procedure This was a 2D Doppler, Color Flow transthoracic echocardiogram. Exam performed in department. Left Ventricle Normal LV size. Left ventricular systolic function is normal. The left ventricular ejection fraction is 65 %. Stage 1 diastolic dysfunction. No regional wall motion abnormalities noted. Right Ventricle Normal RV size. Normal systolic function. Atria Normal left atrium. Normal right atrium. Mitral Valve Equivocal mitral valve prolapse. Tricuspid Valve Normal tricuspid valve. Aortic Valve Trisinus/trileaflet aortic valve. Pulmonic Valve Normal pulmonic valve. Great Vessels Normal aortic root. Pericardium/Pleural No pericardial effusion. MMode/2D Measurements & Calculations LVIDd: 4.9 cm IVSd: 0.60 cm LVOT diam: 1.9 cm LVIDs: 2.7 cm LVPWd: 1.1 cm LVOT area: 2.9 cm2 FS: 45.1 % Ao root diam: 3.2 cm LAV(MOD-bp): 21.2 ml LVAd ap4: 18.8 cm2 LAV(MOD-bp) Indexed: 10.7 ml/m2 LVLd ap4: 7.7 cm LAV(MOD-sp2): 34.0 ml EDV(MOD-sp4): 38.9 ml LAV(MOD-sp4): 12.5 ml EDV(sp4-el): 39.0 ml LVAs ap4: 8.9 cm2 LVLs ap4: 6.5 cm ESV(MOD-sp4): 11.7 ml ESV(sp4-el): 10.5 ml EF(MOD-sp4): 70.0 % EF(sp4-el): 73.2 % SV(MOD-sp4): 27.2 ml SV(sp4-el): 28.6 ml LA A4 area: 8.2 cm2 LA dimension(2D): 3.7 cm RA A4 area: 8.5 cm2 TAPSE: 1.8 cm Time Measurements MV dec time: 0.08 sec Doppler Measurements & Calculations MV E max grayson: 49.1 cm/sec Lat Peak E' Grayson: 10.3 cm/sec Med Peak E' Grayson: 7.3 cm/sec MV A max grayson: 81.6 cm/sec E/E' lat: 4.8 E/E' med: 6.7 MV E/A: 0.60 MV V2 max: 97.8 cm/sec Ao V2 max: 118.2 cm/sec MV max P.8 mmHg MV dec slope: 636.9 cm/sec2 Ao max P.6 mmHg MV V2 mean: 64.9 cm/sec Ao V2 mean: 83.6 cm/sec MV mean P.9 mmHg Ao mean P.2 mmHg MV V2 VTI: 22.7 cm Ao V2 VTI: 23.5 cm AV (velocity ratio): 0.81 MVA(VTI): 2.5 cm2 CARRILLO(I,D): 2.4 cm2 CARRILLO(V,D): 2.4 cm2 LV V1 max: 96.6 cm/sec SV(LVOT): 55.9 ml PA V2 max: 80.7 cm/sec LV V1 max P.8 mmHg PA V2 mean: 58.5 cm/sec LV V1 mean P.9 mmHg LV V1 mean: 62.9 cm/sec LV V1 VTI: 19.1 cm ECHO/Echo Complete Interpretation Summary Normal LV size. Left ventricular systolic function is normal. The left ventricular ejection fraction is 65 %. Stage 1 diastolic dysfunction. Equivocal mitral valve prolapse. Ordering Physician: Meredith Silva Referring Physician: Meredith Silva Performed By: Cammy Pollock RCS
== END | disposition home or self-care (01) ==
LOC: CVS 07:57
PROVIDERS: PCP Internal Medicine; Referring Provider Nurse Practitioner Gerontology; Visit Provider Nurse Practitioner Gerontology
DX: R55 Syncope and collapse (principal); R00.2 Palpitations
CPT/HCPCS: 93306; 93880

== ENCOUNTER 2024-06-18 09:17 | Outpatient (RCR) | payer MEDICARE, MEDICAID, SELFPAY ==
[2024-04-22 03:36] VITALS: BMI 39.1
[2024-06-03 14:01] LABS: International Normalized Ratio 4.5; Prothrombin Time (Protime)PT. 42.5 SECONDS (11.7-14.9)
[2024-06-09 12:44] LABS: International Normalized Ratio 3.6; Prothrombin Time (Protime)PT. 35.9 SECONDS (11.7-14.9)
[2024-06-13 16:55] LABS: International Normalized Ratio 4.2
[2024-06-18 09:47] LABS: International Normalized Ratio 1.3; Prothrombin Time (Protime)PT. 16.4 SECONDS (11.7-14.9)
== END 2024-06-21 18:00 | disposition home or self-care (01) ==
LOC: LAB 09:17
PROVIDERS: Family Provider Internal Medicine; PCP Internal Medicine; Referring Provider Internal Medicine Cardiovascular Disease; Visit Provider Internal Medicine Cardiovascular Disease
DX: Z79.01 Long term (current) use of anticoagulants (principal); I48.0 Paroxysmal atrial fibrillation
CPT/HCPCS: 36415; 85610

== ENCOUNTER 2024-07-03 11:52 | Outpatient (RCR) | payer MEDICARE, MEDICAID, SELFPAY ==
[2024-06-21 22:44] VITALS: BMI 39.1
[2024-06-26 15:14] LABS: International Normalized Ratio 1.4; Prothrombin Time (Protime)PT. 16.7 SECONDS (11.7-14.9)
[2024-07-03 12:28] LABS: International Normalized Ratio 2.2; Prothrombin Time (Protime)PT. 24.7 SECONDS (11.7-14.9)
== END 2024-07-03 18:00 | disposition home or self-care (01) ==
LOC: LAB 11:52
PROVIDERS: Family Provider Internal Medicine; PCP Internal Medicine; Referring Provider Internal Medicine Cardiovascular Disease; Visit Provider Internal Medicine Cardiovascular Disease
DX: Z79.01 Long term (current) use of anticoagulants (principal); I48.0 Paroxysmal atrial fibrillation
CPT/HCPCS: 36415; 85610

== ENCOUNTER 2024-10-14 11:11 | Outpatient (RCR) | payer MEDICARE, SELFPAY ==
[2024-07-23 03:51] VITALS: BMI 39.1
[2024-09-23 14:15] LABS: International Normalized Ratio 3.1; Prothrombin Time (Protime)PT. 32.5 SECONDS (11.7-14.9)
[2024-10-14 12:42] LABS: International Normalized Ratio 1.9; Prothrombin Time (Protime)PT. 22.1 SECONDS (11.7-14.9)
== END 2024-10-14 18:00 | disposition home or self-care (01) ==
LOC: LAB 11:11
PROVIDERS: Family Provider Internal Medicine; PCP Internal Medicine; Referring Provider Internal Medicine Cardiovascular Disease; Visit Provider Internal Medicine Cardiovascular Disease
DX: Z79.01 Long term (current) use of anticoagulants (principal); I48.0 Paroxysmal atrial fibrillation
CPT/HCPCS: 36415; 85610

== ENCOUNTER 2024-12-17 12:23 | Outpatient (RCR) | payer MEDICARE, SELFPAY ==
[2024-10-20 21:49] VITALS: BMI 39.1
[2024-12-05 16:14] LABS: International Normalized Ratio 1.4; Prothrombin Time (Protime)PT. 17.4 SECONDS (11.7-14.9)
[2024-12-17 12:59] LABS: International Normalized Ratio 1.8
== END 2024-12-17 18:00 | disposition home or self-care (01) ==
LOC: LAB 12:23
PROVIDERS: Family Provider Internal Medicine; PCP Internal Medicine; Referring Provider Internal Medicine Cardiovascular Disease; Visit Provider Internal Medicine Cardiovascular Disease
DX: Z79.01 Long term (current) use of anticoagulants (principal); I48.0 Paroxysmal atrial fibrillation
CPT/HCPCS: 36415; 85610

== ENCOUNTER 2025-01-19 13:03 | Outpatient (RCR) | payer MEDICARE, SELFPAY ==
[2024-12-20 20:43] VITALS: BMI 39.1
[2024-12-29 12:26] LABS: International Normalized Ratio 1.9; Prothrombin Time (Protime)PT. 22.6 SECONDS (11.7-14.9)
[2025-01-19 13:47] LABS: International Normalized Ratio 1.8; Prothrombin Time (Protime)PT. 20.9 SECONDS (11.7-14.9)
== END 2025-01-19 18:00 | disposition home or self-care (01) ==
LOC: LAB 13:03
PROVIDERS: Family Provider Internal Medicine; PCP Internal Medicine; Referring Provider Internal Medicine Cardiovascular Disease; Visit Provider Internal Medicine Cardiovascular Disease
DX: Z79.01 Long term (current) use of anticoagulants (principal); I48.0 Paroxysmal atrial fibrillation
CPT/HCPCS: 36415; 85610

== ENCOUNTER 2025-03-10 13:50 | Outpatient (RCR) | payer MEDICARE, SELFPAY ==
[2025-03-10 15:07] LABS: Prothrombin Time (Protime)PT. 24.4 SECONDS (11.7-14.9)
== END 2025-03-10 18:00 | disposition home or self-care (01) ==
LOC: LAB 13:50
PROVIDERS: Family Provider Internal Medicine; PCP Internal Medicine; Referring Provider Internal Medicine Cardiovascular Disease; Visit Provider Internal Medicine Cardiovascular Disease
DX: Z79.01 Long term (current) use of anticoagulants (principal); I48.0 Paroxysmal atrial fibrillation
CPT/HCPCS: 36415; 85610

== ENCOUNTER 2025-04-17 12:10 | Outpatient (RCR) | payer MEDICARE, SELFPAY ==
[2025-04-17 12:54] LABS: Prothrombin Time (Protime)PT. 38.4 SECONDS (11.7-14.9)
== END 2025-04-21 18:00 | disposition home or self-care (01) ==
LOC: LAB 12:10
PROVIDERS: Family Provider Internal Medicine; PCP Internal Medicine; Referring Provider Internal Medicine Cardiovascular Disease; Visit Provider Internal Medicine Cardiovascular Disease
DX: Z79.01 Long term (current) use of anticoagulants (principal); I48.0 Paroxysmal atrial fibrillation
CPT/HCPCS: 36415; 85610

== ENCOUNTER 2025-05-05 13:09 | Outpatient (RCR) | payer MEDICARE, SELFPAY ==
[2025-04-23 13:15] LABS: Prothrombin Time (Protime)PT. 22.5 SECONDS (11.7-14.9)
[2025-05-05 14:05] LABS: Prothrombin Time (Protime)PT. 30.0 SECONDS (11.7-14.9)
== END 2025-05-05 18:00 | disposition home or self-care (01) ==
LOC: LAB 13:09
PROVIDERS: Family Provider Internal Medicine; PCP Internal Medicine; Referring Provider Internal Medicine Cardiovascular Disease; Visit Provider Internal Medicine Cardiovascular Disease
DX: Z79.01 Long term (current) use of anticoagulants (principal); I48.0 Paroxysmal atrial fibrillation
CPT/HCPCS: 36415; 85610

== ENCOUNTER 2025-06-19 11:52 | Outpatient (RCR) | payer MEDICARE, SELFPAY ==
[2025-06-12 16:23] LABS: Prothrombin Time (Protime)PT. 44.0 SECONDS (11.7-14.9)
[2025-06-15 16:21] LABS: Prothrombin Time (Protime)PT. 44.0 SECONDS (11.7-14.9)
[2025-06-19 13:01] LABS: Prothrombin Time (Protime)PT. 23.5 SECONDS (11.7-14.9)
== END 2025-06-20 18:00 | disposition home or self-care (01) ==
LOC: LAB 11:52
PROVIDERS: Family Provider Internal Medicine; PCP Internal Medicine; Referring Provider Internal Medicine Cardiovascular Disease; Visit Provider Internal Medicine Cardiovascular Disease
DX: Z79.01 Long term (current) use of anticoagulants (principal); I48.0 Paroxysmal atrial fibrillation
CPT/HCPCS: 36415; 85610